=== PATIENT | female | born 1960 | race Caucasian/White ===

== ENCOUNTER 2019-12-11 12:45 | Outpatient (CLI) | payer OTHER, SELFPAY ==
--- NOTE | 2019-12-11 12:53 | CT_ITS ---
WS: [id number] CT HEAD NONCONTRAST HISTORY: WEAKNESS, RIGHT SIDE OF BODY TECHNIQUE: Contiguous axial imaging performed through the brain in 2.5 mm imaging. Bone and soft tiss ue windows. All CT scans at [facility] use at least one of these dose optimization techniq ues: automated exposure control; mA and/or kV adjustment per patient size (includes targeted exams wh ere dose is matched to clinical indication); or iterative reconstruction. DLP: 925.91 mGycm COMPARISON: None available. No acute intracranial hemorrhage, midline shift or mass effect. Mild atrophy and mild chronic microvascular ischemic disease. No space-occupying lesions are identifi ed. Ventricles: Normal size with no hydrocephalus. Paranasal sinuses: As visualized are clear. Mastoid air cells: Well pneumatized. Calvarium and scalp: Skull is intact with no soft tissue edema or swelling. CT/CT head wo con* [id number] IMPRESSION: 1. No acute intracranial hemorrhage or edema. 2. Mild atrophy and chronic ischemic disease. 3. If further evaluation is clinically thought necessary MRI with contrast wou ld be helpful.
== END 2019-12-11 12:46 | disposition home or self-care (01) ==
LOC: RADWPI 12:49
PROVIDERS: Family Provider Family Medicine; PCP Family Medicine; Visit Provider Family Medicine
DX: R53.1 Weakness (principal); G31.9 Degenerative disease of nervous system, unspecified; I25.9 Chronic ischemic heart disease, unspecified
CPT/HCPCS: 70450

== ENCOUNTER 2019-12-17 07:45 | Outpatient (CLI) | payer OTHER, SELFPAY ==
--- NOTE | 2019-12-17 | USCV_ITS ---
Shelly Schilling Age: 59 Gender: F : 1960 Exam Date: 12/17/2019 10:26 Ordering Phys: Brady Mckeon MD Technologist: Faith Thorne Exam Location: [facility] – [place] Indication: CVA RT SIDE BP: / HR: 66 Rhythm: Sinus Technical Quality: Adequate MEASUREMENTS (Male / Female) Normal Values 2D ECHO LV Diastolic Diameter PLAX 3.5 cm 4.2 - 5.9 / 3.9 - 5.3 cm LV Systolic Diameter PLAX 2.7 cm LV Chamber Size 3.0 cm IVS Diastolic Thickness 1.2 cm 0.6 - 1.0 / 0.6 - 0.9 cm IVS Systolic Thickness 1.6 cm LVPW Diastolic Thickness 1.3 cm 0.6 - 1.0 / 0.6 - 0.9 cm LVPW Systolic Thickness 1.2 cm RV Chamber Size 2.6 cm LVOT Diameter 2.0 cm LV Ejection Fraction 2D Teich 43.8 % LV Ejection Fraction MOD 2C 72.0 % LV Ejection Fraction 2C AL 70.8 % LA Diameter 4.6 cm LA Width 4.1 cm LA Height 5.0 cm RA Width 2.6 cm RA Height 3.3 cm Aorta at Sinotubular Diameter 2.2 cm M-MODE LV Diastolic Diameter MM 5.0 cm 4.2 - 5.9 / 3.9 - 5.3 cm LV Systolic Diameter MM 3.3 cm LV Ejection Fraction MM Teich 62.7 % IVS Diastolic Thickness MM 1.1 cm 0.6 - 1.0 / 0.6 - 0.9 cm IVS Systolic Thickness MM 1.2 cm LVPW Diastolic Thickness MM 1.0 cm 0.6 - 1.0 / 0.6 - 0.9 cm LVPW Systolic Thickness MM 1.9 cm RV Diastolic Diameter MM 1.1 cm Aortic Annulus Diameter 2.8 cm LA Ao Ratio MM 1.7 MV E Point Septal Separation 0.3 cm DOPPLER AV Peak Velocity 167.0 cm/s LVOT Peak Velocity 82.0 cm/s AV Area Cont Eq vti 1.9 cm squared AV Area Cont Eq pk 1.6 cm squared MV Area PHT 3.9 cm squared Mitral E to A Ratio 1.3 MV E' Velocity 7.0 cm/s Mitral E to MV E' Ratio 14.9 Mitral E to LV E' Lateral Ratio 16.2 Mitral E to LV E' Septal Ratio 13.9 TR Peak Velocity 235.2 cm/s TR Peak Gradient 22.1 mmHg TR Mean Velocity 153.9 cm/s TR Mean Gradient 11.6 mmHg TR Velocity Time Integral 59.0 cm TV Peak E Velocity 75.0 cm/s PV Peak Velocity 67.0 cm/s RV Acceleration Time 0.1 s RV Ejection Time 0.4 s RV AcT/ET 0.4 FINDINGS Left Ventricle Normal left ventricular cavity size. Normal left ventricular systolic function. No regional wall motion abnormalities. Left ventricular ejection fraction is estimated at 62 %. Grade II/IV diastolic dysfunction, moderately elevated filling pressures. Right Ventricle The right ventricle is normal in size and function. RVSP could not be calculated due to incomplete tricuspid regurgitation velocity profile. Right Atrium The right atrium is normal in size. Left Atrium Moderately increased left atrial size. Mitral Valve Severely thickened mitral valve. Severe mitral annular calcification. No mitral valve stenosis. Moderate mitral valve regurgitation. Aortic Valve Moderate aortic valve calcification. Mild aortic valve stenosis, mean gradient 5.8 mmHg, JAMES 1.9 cm squared. Trace regurgitation. Tricuspid Valve Structurally normal tricuspid valve without significant stenosis or regurgitation. Pulmonic Valve Structurally normal pulmonic valve without significant stenosis. There is no pulmonic regurgitation. Pericardium Normal pericardium without effusion. Aorta Normal ascending aorta dimension. CONCLUSIONS 1-Normal left ventricular cavity size. Normal left ventricular systolic function. No regional wall motion abnormalities. Left ventricular ejection fraction is estimated at 62 %. Grade II/IV diastolic dysfunction, moderately elevated filling pressures. 2-Moderate aortic valve calcification. Mild aortic valve stenosis, mean gradient 5.8 mmHg, JAMES 1.9 cm squared. Trace regurgitation. 3-Severely thickened mitral valve. Severe mitral annular calcification. No mitral valve stenosis. Moderate mitral valve regurgitation. 4-Moderately increased left atrial size. 5-The right ventricle is normal in size and function. RVSP could not be calculated due to incomplete tricuspid regurgitation velocity profile. 6-Right atrial pressure is around 5 mm of mercury. 7-When compared to the prior echocardiogram dated 02/22/2018 there appeared to be mild aortic stenosis and mild to moderate mitral valve regurgitation now. Halima Espino MD (Electronically Signed) Final Date: 17 Dec 2019 14:59 S
--- NOTE | 2019-12-17 | MR_ITS ---
WS: [id number] MRI BRAIN WITH AND WITHOUT CONTRAST HISTORY: CVA, WEAKNESS RT SIDE OF BODY COMPARISON: CT head 12/11/2019 TECHNIQUE: Multiplanar imaging performed through the brain with Prohance 17 ml's IV. Very tiny acute diffusion abnormality in the motor cortex of the LEFT frontoparietal region. Only a s latrice acute infarct is identified. There are additional scattered T2 and FLAIR signal hyperintensities in the subcortical white matter a nd in the periventricular white matter. Slightly greater number in the LEFT cerebrum. Ventricles and extra-axial spaces are normal. Clivus and pituitary gland are normal. Visualized posterior fossa and brainstem are also normal. On the postcontrast images there is a 3.5 mm area of nodular enhancement in the posterior LEFT fronta l cortex. This is not definitely the same area as the small lacunar infarct. There is some very vague enhancement within the acute lacunar infarct also. Dural venous sinuses are normal. Paranasal sinuses: Well aerated with no significant disease. Mastoid air cells: Minimal mastoid air cell disease. Calvarium and scalp: Normal. MR/MR head wo/w con [id number] IMPRESSION: 1. Tiny acute lacunar infarct in the LEFT frontoparietal region with minimal e nhancement. 2. Additional nodular, 3.5 mm area of enhancement in the posterior LEFT fronta l cortex. This also may be from a prior infarct. Due to the enhancement and no positive findings on the diffusion-weighted images recommend short-term follow- up. Follow-up MRI brain with contrast in 4-6 weeks. Differential includes subac el infarct, active demyelinating lesion or early neoplasm. Less likely vascula r malformation. 3. Mild chronic microvascular ischemic disease, greater in the LEFT hemisphere .
--- NOTE | 2019-12-17 | USCV_ITS ---
Shelly Schilling Age: 59 Gender: F : 1960 Exam Date: 12/17/2019 10:07 Ordering Phys: rBady Mckeon MD Technologist: Faith Thorne Exam Location: [facility] – [place] Indication: CVA RT SIDE Risk Factors: Unknown Previous Vascular Surgery: None Right Brachial BP: / Left Brachial BP: / Right Left Velocity (cm/s) Spectral Plaque Velocity (cm/s) Spectral Plaque Syst/Diast Broadening Syst/Diast Broadening 105.80/20.90 Prox CCA 83.30 / 14.60 93.70/ 24.30 Mid CCA 65.50 / 19.10 55.20/ 15.80 Distal CCA 60.60 / 19.10 Hetro 57.40/ 19.10 Prox ICA 69.70 / 25.70 Hetro 72.70/ 29.40 Mid ICA 84.60 / 39.00 89.70/ 30.60 Distal ICA 109.40/ 46.10 74.00 ECA 77.10 0.96 ICA/CCA 1.67 Antegrade Vertebral Antegrade 42.50/ 11.00 cm/s 50.40/ 15.40 cm/s Tri Subclavian Tri 74.10 144.5 0 FINDINGS Comparison:. /. No significant elevation of systolic or diastolic velocities. Waveforms are normal. No significant amount of calcified plaque or intimal thickening identified. CONCLUSIONS Normal carotid doppler ultrasound. No interval change in stenosis since prior exam. Dr. Maura Morales DO (Electronically Signed) Final Date: 17 Dec 2019 15:10 S
== END 2019-12-17 07:46 | disposition home or self-care (01) ==
PROVIDERS: Family Provider Family Medicine; PCP Family Medicine; Visit Provider Family Medicine
DX: I63.9 Cerebral infarction, unspecified (principal); R53.1 Weakness; I63.81 Other cerebral infarction due to occlusion or stenosis of small artery; I25.9 Chronic ischemic heart disease, unspecified
CPT/HCPCS: 70553; 93306; 93880; A9579

== ENCOUNTER 2020-01-02 09:47 | Outpatient (RCR) | payer OTHER, SELFPAY | END 2020-01-06 23:59 | disposition home or self-care (01) | LOC: SOT 09:47 | PROVIDERS: PCP Family Medicine; Referring Provider Family Medicine; Visit Provider Family Medicine | DX: Z86.73 Personal history of transient ischemic attack (TIA), and cerebral infarction without residual deficits (principal) | CPT/HCPCS: 97166 ==

== ENCOUNTER 2020-01-07 06:00 | Outpatient (RCR) | payer OTHER, SELFPAY | END 2020-02-05 23:59 | disposition home or self-care (01) | LOC: SOT 06:00 | PROVIDERS: PCP Family Medicine; Referring Provider Family Medicine; Visit Provider Family Medicine | DX: Z86.73 Personal history of transient ischemic attack (TIA), and cerebral infarction without residual deficits (principal) | CPT/HCPCS: 97110; 97112; 97140; 97530 ==

== ENCOUNTER 2020-01-07 06:00 | Outpatient (RCR) | payer OTHER, SELFPAY | END 2020-02-05 23:59 | disposition home or self-care (01) | LOC: SST 06:00 | PROVIDERS: PCP Family Medicine; Referring Provider Family Medicine; Visit Provider Family Medicine | DX: I63.9 Cerebral infarction, unspecified (principal); R41.841 Cognitive communication deficit | CPT/HCPCS: 96125; 97129; 97130 ==

== ENCOUNTER 2020-01-29 07:36 | Outpatient (CLI) | payer OTHER, SELFPAY ==
--- NOTE | 2020-01-29 07:39 | US_ITS ---
WS: [id number] Complete ABDOMINAL ULTRASOUND HISTORY: ELEVATED TRANSAMINASES SERUM COMPARISON: None available. Liver: 20.0 cm in length. Moderate enlargement the liver with coarsened echotexture and changes of he patic steatosis. Gallbladder: Normally distended with no gallstones, wall thickening or pericholecystic fluid. Gallbladder wall thickness: 0.2 cm. Pancreas: Normal size and echogenicity. CBD: 0.4 cm. Right kidney: 10.5 cm x 4.8 cm x 4.2 cm. No mass, cortical thickening or hydronephrosis. Left kidney: 12.2 cm x 5.6 cm x 4.2 cm. No mass, cortical thickening or hydronephrosis. Spleen: Normal size and echogenicity. Abdominal aorta and IVC are within normal limits. No ascites. US/US abdomen complete* [id number] IMPRESSION: 1. Moderate hepatomegaly and hepatic steatosis. 2. Negative gallbladder.
--- NOTE | 2020-01-29 08:36 | MR_ITS ---
WS: [id number] MRI BRAIN WITH AND WITHOUT CONTRAST HISTORY: CVA COMPARISON: 12/17/2019. CT head 12/11/2019 TECHNIQUE: Multiplanar imaging performed through the brain with Prohance 17 ml's IV. Previously described tiny acute lacunar infarct in the LEFT frontal parietal region is no longer pres ent. There are no diffusion-weighted abnormalities today. No evidence for prior hemorrhage. There is a moderate amount of chronic microvascular ischemic diseas e in the white matter. No large territory infarcts. Ventricles and extra-axial spaces are normal. Clivus and pituitary gland are normal. Visualized posterior fossa and brainstem are also normal. There are no enhancing masses. The previously described nodular areas of enhancement in the posterior LEFT frontal cortex are no longer present. Dural venous sinuses are normal. Paranasal sinuses: Well aerated with no significant disease. Mastoid air cells: Normal. Calvarium and scalp: Normal. MR/MR head wo/w con [id number] IMPRESSION: 1. No evidence for an acute infarct. No acute hemorrhage. 2. Interval resolution of the nodular areas of enhancement in the frontal juan ex. This focal nodular enhancement was probably related to a subacute infarct. 3. Moderate chronic microvascular ischemic changes without progression.
== END 2020-01-29 07:37 | disposition home or self-care (01) ==
LOC: US 07:36
PROVIDERS: PCP Family Medicine; Visit Provider Family Medicine
DX: I63.9 Cerebral infarction, unspecified (principal); R16.0 Hepatomegaly, not elsewhere classified; K76.0 Fatty (change of) liver, not elsewhere classified; I25.9 Chronic ischemic heart disease, unspecified
CPT/HCPCS: 70553; 76700; A9579

== ENCOUNTER 2020-02-06 06:00 | Outpatient (RCR) | payer OTHER, SELFPAY | END 2020-03-07 23:59 | disposition home or self-care (01) | LOC: SOT 06:00 | PROVIDERS: PCP Family Medicine; Referring Provider Family Medicine; Visit Provider Family Medicine | DX: Z86.73 Personal history of transient ischemic attack (TIA), and cerebral infarction without residual deficits (principal) | CPT/HCPCS: 97110 ==

== ENCOUNTER 2020-02-06 06:00 | Outpatient (RCR) | payer OTHER, SELFPAY | END 2020-03-07 23:59 | disposition home or self-care (01) | LOC: SST 06:00 | PROVIDERS: PCP Family Medicine; Referring Provider Family Medicine; Visit Provider Family Medicine | DX: I63.9 Cerebral infarction, unspecified (principal); R41.841 Cognitive communication deficit | CPT/HCPCS: 97129; 97130 ==

== ENCOUNTER 2020-05-05 06:00 | Outpatient (RCR) | payer OTHER, SELFPAY | END 2020-05-07 23:59 | disposition home or self-care (01) | LOC: SST 06:00 | PROVIDERS: PCP Family Medicine; Referring Provider Family Medicine; Visit Provider Family Medicine | DX: I69.311 Memory deficit following cerebral infarction (principal); I69.328 Other speech and language deficits following cerebral infarction | CPT/HCPCS: 96125 ==

== ENCOUNTER 2020-05-08 06:00 | Outpatient (RCR) | payer OTHER, SELFPAY | END 2020-06-07 23:59 | disposition home or self-care (01) | LOC: SST 06:00 | PROVIDERS: PCP Family Medicine; Referring Provider Family Medicine; Visit Provider Family Medicine | DX: I63.9 Cerebral infarction, unspecified (principal) | CPT/HCPCS: 97129; 97130 ==

== ENCOUNTER → 2020-05-09 11:44 | Outpatient (BNVA) | payer OTHER, SELFPAY | PROVIDERS: PCP Family Medicine; Visit Provider Specialist | DX: I63.9 Cerebral infarction, unspecified (principal); G47.10 Hypersomnia, unspecified; R41.3 Other amnesia; R00.2 Palpitations | CPT/HCPCS: 96116; 99205 ==

== ENCOUNTER 2020-05-30 09:00 | Outpatient (CLI) | payer OTHER, SELFPAY ==
--- NOTE | 2020-05-30 09:15 | MR_ITS ---
WS: [id number] MRA HEAD TECHNIQUE: Axial 3-D TOF images obtained with axial images and axial, sagittal, and coronal 2-D refor matted images. CLINICAL INFORMATION: I63.9 Cerebral infarction, unspecified COMPARISON: MRI head January 29, 2020 FINDINGS: Distal vertebral arteries are patent. Basilar artery is patent. Normal vascularity to the [employer] territo ry bilaterally. Both ICAs are patent at the skull base. Normal vascularity to the RON and MCA territories bilaterally . No evidence of high-grade proximal stenosis or aneurysm. Patent anterior communicating artery. MR/MR angio head wo con [id number] IMPRESSION: Normal intracranial MRa
== END 2020-05-30 09:01 | disposition home or self-care (01) ==
PROVIDERS: PCP Family Medicine; Visit Provider Specialist
DX: I63.9 Cerebral infarction, unspecified (principal)
CPT/HCPCS: 70544

== ENCOUNTER 2020-06-08 06:00 | Outpatient (RCR) | payer OTHER, SELFPAY | END 2020-07-07 23:59 | disposition home or self-care (01) | LOC: SST 06:00 | PROVIDERS: PCP Family Medicine; Referring Provider Family Medicine; Visit Provider Family Medicine | DX: I69.311 Memory deficit following cerebral infarction (principal) | CPT/HCPCS: 97129; 97130 ==

== ENCOUNTER 2020-06-16 20:00 | Outpatient (CLI) | payer OTHER, SELFPAY | END 2020-06-16 20:01 | disposition home or self-care (01) | LOC: SLEEP 06-17 09:29 | PROVIDERS: PCP Family Medicine; Visit Provider Specialist | DX: G47.10 Hypersomnia, unspecified (principal); G47.33 Obstructive sleep apnea (adult) (pediatric) | CPT/HCPCS: 95810 ==

== ENCOUNTER 2020-07-08 06:00 | Outpatient (RCR) | payer OTHER, SELFPAY | END 2020-08-07 23:59 | disposition home or self-care (01) | LOC: SST 06:00 | PROVIDERS: PCP Family Medicine; Referring Provider Family Medicine; Visit Provider Family Medicine | DX: R41.3 Other amnesia (principal); I69.30 Unspecified sequelae of cerebral infarction | CPT/HCPCS: 95816; 97129; 97130 ==

== ENCOUNTER → 2020-07-09 10:09 | Outpatient (BNVA) | payer OTHER, SELFPAY | PROVIDERS: PCP Family Medicine; Visit Provider Specialist | DX: Z01.89 Encounter for other specified special examinations (principal); R56.9 Unspecified convulsions; G31.84 Mild cognitive impairment of uncertain or unknown etiology; I69.30 Unspecified sequelae of cerebral infarction; I10 Essential (primary) hypertension; F17.210 Nicotine dependence, cigarettes, uncomplicated | CPT/HCPCS: 95816; 96116; 99214 ==

== ENCOUNTER → 2020-07-20 10:15 | Outpatient (BNVA) | payer OTHER, SELFPAY | PROVIDERS: PCP Family Medicine; Visit Provider Internal Medicine Cardiovascular Disease | DX: Z11.59 Encounter for screening for other viral diseases (principal); Z01.812 Encounter for preprocedural laboratory examination | CPT/HCPCS: 87635 ==

== ENCOUNTER 2020-07-24 11:03 | Day surgery (SDC) | payer OTHER, SELFPAY ==
--- NOTE | 2020-07-24 11:38 | USCV_ITS ---
Shelly Schilling Age: 59 Gender: F : 1960 Exam Date: 07/24/2020 11:52 Ordering Phys: Viri Mcneal MD ([email or web address]) Technologist: Faith Thorne Exam Location: [facility] – [place] Indication: AFIB BP: 145 / 93 HR: 80 Rhythm: Sinus Technical Quality: Good MEASUREMENTS (Male / Female) Normal Values DOPPLER MV Area PHT 4.2 cm squared Mitral E to A Ratio 1.0 MV E' Velocity 148.0 cm/s Medications Sedation by anesthesia colleagues. Please refer to anesthesia report for details. Complications Intubation easy. Attempts x1. Patient no periprocedural postprocedural complications. Proc. Components Multiple images were obtained transgastric and mid esophageal level. FINDINGS Left Ventricle Normal left ventricular size, systolic function and wall thickness, with no regional wall motion abnormalities. Left ventricular ejection fraction is estimated at 70 %. Normal diastolic filling pattern. Right Ventricle Normal right ventricular size and systolic function. Tricuspid valve regurgitant jet is inadequate for estimation of right ventricle systolic pressure. Right Atrium Normal right atrial size. Left Atrium Mildly increased left atrial size. LA Appendage Normal left atrial appendage. Normal flow velocities in the left atrial appendage. No thrombus visualized in the left atrial appendage. IA Septum Normal interatrial septum. No patent foramen ovale or atrial septal defect by color Doppler or agitated saline study (bubble study). Mitral Valve Moderate mitral annular calcification. Thickened mitral valve. No mitral valve stenosis. Trace-mild mitral valve regurgitation. Aortic Valve Structurally normal trileaflet aortic valve. No aortic valve stenosis. No aortic valve regurgitation. Tricuspid Valve Structurally normal tricuspid valve. No tricuspid valve stenosis. Trace to mild tricuspid valve regurgitation. Pulmonic Valve Structurally normal pulmonic valve. No pulmonary valve stenosis. Trace pulmonary valve regurgitation. Pericardium No pericardial effusion. Aorta Normal size aortic root and proximal ascending aorta. No evidence of aortic dilation aneurysm or dissection. CONCLUSIONS 1. Normal left ventricular size, systolic function and wall thickness, with no regional wall motion abnormalities. Left ventricular ejection fraction is estimated at 70 %. 2. Normal right ventricular size and systolic function. 3. Mildly increased left atrial size. 4. No left atrial or left atrial appendage thrombus. 5. No evidence of atrial septal defect or patent foramen ovale. 6. No prior similar studies to compare. Viri Mcneal MD (Electronically Signed) Final Date: 25 July 2020 16:36 S
[2020-07-24 11:47] VITALS: BP 145/93; PULSE 87; RESP 18; TEMP 36.7; O2SAT 97; BMI 38.7
--- NOTE | 2020-07-24 12:16 | P.HP_ITS ---
Same Day Surgery H&P Indication for Procedure/HPI DATE OF PROCEDURE: July 24, 2020 CHIEF COMPLAINT/INDICATIONFOR SURGICAL PROCEDURE: Recent CVA PREOP DIAGNOSIS: CVA PLANNED PROCEDRUE: Operation Date: 07/24/20 12:00 Proposed Procedures p ARNIE (Transesophageal Echocardiogram)(Not Applicable) - Viri Mcneal MD 59 yo woman with PMHx of smoking since the age of 13, hypertension recent CVA in 12/25 when her right arm started hurting and it dropped while playing music. She is intermittently having problems with speech varies. She is getting speech therapy and physical therapy to help with the weakness. 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 She went back to work she coworkers noticed a difference in her cognitive function. She was making mistakes but was not realizing what she was doing. She is here today for outpatient elective ARNIE given her recent stroke. No new complaints since her last office visit. Physical exam: Gen: NAD, laying comfortable in bed RS: CTAB/L, No wheezing, rales or rhonchi CVS: S1S2 normal, Grade 2/6 systolic murmur at apex, No gallop [employer]: AAOx3 Ext: No edema, cyanosis. Medications/Allergies* Home Medications Medication Instructions Recorded Confirmed Type aspirin 325 mg tablet 325 mg PO DAILY 03/03/20 07/23/20 History atorvastatin 10 mg tablet 40 mg PO DAILY 03/03/20 07/23/20 History loratadine 10 mg tablet 10 mg PO DAILY 03/03/20 07/23/20 History omeprazole 20 mg capsule,delayed 20 mg PO DAILY 03/03/20 07/23/20 History release lisinopril 5 mg tablet 10 mg PO DAILY tab 05/09/20 07/23/20 History Allergies/Adverse Reactions Allergy/AdvReac Type Severity Reaction Status Date / Time Sulfa (Sulfonamide Allergy HIVES Verified 07/09/20 10:16 Antibiotics) nitrofurantoin AdvReac SHORTNESS Verified 07/09/20 10:16 [From Macrobid] OF BREATH Pertinent History/Comorbid Conditions* Medical History (Updated 07/12/20 @ 11:22 by Brittani Robertson MD) History of diverticulitis History of DVT (deep vein thrombosis) History of hiatal hernia History of hysteroscopy History of TIA (transient ischemic attack) Hypertension Surgical History (Updated 05/29/20 @ 10:30 by Viri Mcneal MD) History of delivery Social History Smoking and tobacco status: current every day smoker Quit status (tobacco): considering quitting Alcohol intake: never Pertinent Exam Findings alert, oriented x 3, clear to auscultation bilaterally, regular rate & rhythm and procedure specific exam findings (ASA 2, Airway 2) Related Problem List Diagnoses (1) Cerebrovascular accident (CVA): (2) Hypertension: Qualifiers: Hypertension type: essential hypertension Qualified Code(s): I10 - Essential (primary) hypertension (3) Smoker: (4) Hyperlipidemia: Qualifiers: Hyperlipidemia type: mixed hyperlipidemia Qualified Code(s): E78.2 - Mixed hyperlipidemia Recommendations Surgery/Procedure today Coding Level of Care Code Acute General Operator for [facility] Fwd Diagnoses Cerebrovascular accident (CVA) I63.9 Hypertension I10 Hypertension type: essential hypertension Smoker F17.200 Hyperlipidemia E78.2 Hyperlipidemia type: mixed hyperlipidemia
[2020-07-24 13:20] VITALS: BP 129/68; PULSE 63; RESP 18; O2SAT 96
--- NOTE | 2020-07-24 13:28 | P.PCN_ITS ---
Procedure/Consent Time out: Time Out Performed: Yes Consent: Consent for Procedure: Consent obtained from patient, Risks & Benefits reviewed and Agrees to proceed with procedure Procedure Narrative: ARNIE Procedure note Indication: Acute stroke Sedation: Propofol by anesthesia The patient was brought down to the quality assurance/r&d lab technician (CPRU). Procedure was explained to the patient in detail and informed consent was obtained. Timeout was called. After achieving adequate sedation, the probe was inserted on first attempt. No blood on the probe post procedure. Prelim report: Normal left ventricle size and systolic function. No left atrial or left atrial appendage mass or thrombus visualized. No ASD or PFO identified. Full report to follow. Patient tolerated the procedure well and initial recovery in quality assurance/r&d lab technician and subsequently was discharged home. Acute Procedures Epistaxis Control: Time out performed: Yes
[2020-07-24 13:35] VITALS: BP 127/74; PULSE 66; RESP 18; O2SAT 97
[2020-07-24 13:37] VITALS: BP 125/67; PULSE 72; RESP 18; TEMP 36.7; O2SAT 98
[2020-07-24 13:50] VITALS: BP 151/78; PULSE 65; RESP 18; O2SAT 98
[2020-07-24 14:05] VITALS: BP 138/77; PULSE 64; RESP 18; O2SAT 99
== END 2020-07-24 14:19 | disposition home or self-care (01) ==
PROVIDERS: PCP Family Medicine; Visit Provider Internal Medicine Cardiovascular Disease
PROC: (CPT 93312; principal; 2020-07-24 12:00)
DX: I63.9 Cerebral infarction, unspecified (principal); I10 Essential (primary) hypertension; F17.210 Nicotine dependence, cigarettes, uncomplicated; E78.2 Mixed hyperlipidemia; Z79.82 Long term (current) use of aspirin; Z86.718 Personal history of other venous thrombosis and embolism; Z86.73 Personal history of transient ischemic attack (TIA), and cerebral infarction without residual deficits
CPT/HCPCS: 12345; 93312; 93320; 93325

== ENCOUNTER 2020-08-08 06:00 | Outpatient (RCR) | payer SELFPAY | END 2020-09-07 23:59 | disposition home or self-care (01) | LOC: SST 06:00 | PROVIDERS: PCP Family Medicine; Referring Provider Family Medicine; Visit Provider Family Medicine | DX: I63.9 Cerebral infarction, unspecified (principal); R41.841 Cognitive communication deficit; R41.3 Other amnesia | CPT/HCPCS: 97129; 97130 ==

== ENCOUNTER 2020-09-26 09:35 | Outpatient (RCR) | payer OTHER, SELFPAY | END 2020-10-05 23:59 | disposition home or self-care (01) | LOC: SST 09:35 | PROVIDERS: PCP Family Medicine; Referring Provider Family Medicine; Visit Provider Family Medicine | DX: I63.9 Cerebral infarction, unspecified (principal); R41.3 Other amnesia; R41.841 Cognitive communication deficit | CPT/HCPCS: 92507; 96125; 97129; 97130 ==

== ENCOUNTER → 2020-10-01 13:33 | Outpatient (BNVA) | payer OTHER, SELFPAY | PROVIDERS: PCP Family Medicine; Visit Provider Specialist | DX: I69.30 Unspecified sequelae of cerebral infarction (principal); G31.84 Mild cognitive impairment of uncertain or unknown etiology; R56.9 Unspecified convulsions; F32.9 Major depressive disorder, single episode, unspecified; F17.210 Nicotine dependence, cigarettes, uncomplicated | CPT/HCPCS: 99215; 99417; G2212 ==

== ENCOUNTER 2020-10-06 06:00 | Outpatient (RCR) | payer OTHER, SELFPAY | END 2020-11-05 23:59 | disposition home or self-care (01) | LOC: SST 06:00 | PROVIDERS: PCP Family Medicine; Referring Provider Family Medicine; Visit Provider Family Medicine | DX: R56.9 Unspecified convulsions (principal); R41.3 Other amnesia; R41.841 Cognitive communication deficit; Z86.73 Personal history of transient ischemic attack (TIA), and cerebral infarction without residual deficits; F17.210 Nicotine dependence, cigarettes, uncomplicated | CPT/HCPCS: 97129; 97130 ==

== ENCOUNTER 2020-11-06 06:00 | Outpatient (RCR) | payer SELFPAY | END 2020-12-05 23:59 | disposition home or self-care (01) | LOC: SST 06:00 | PROVIDERS: PCP Family Medicine; Referring Provider Family Medicine; Visit Provider Family Medicine | DX: I69.311 Memory deficit following cerebral infarction (principal) | CPT/HCPCS: 92507; 97129; 97130 ==

== ENCOUNTER 2020-12-06 06:00 | Outpatient (RCR) | payer OTHER, SELFPAY | END 2021-01-05 23:59 | disposition home or self-care (01) | LOC: SST 06:00 | PROVIDERS: PCP Family Medicine; Referring Provider Family Medicine; Visit Provider Family Medicine | DX: I69.328 Other speech and language deficits following cerebral infarction (principal); I69.311 Memory deficit following cerebral infarction | CPT/HCPCS: 92507; 97129; 97130 ==

== ENCOUNTER → 2020-12-11 09:19 | Outpatient (BNVA) | payer OTHER, SELFPAY | PROVIDERS: PCP Family Medicine; Visit Provider Specialist | DX: G31.84 Mild cognitive impairment of uncertain or unknown etiology (principal); I69.398 Other sequelae of cerebral infarction; F41.9 Anxiety disorder, unspecified; F32.9 Major depressive disorder, single episode, unspecified; F17.210 Nicotine dependence, cigarettes, uncomplicated | CPT/HCPCS: 99215 ==

== ENCOUNTER 2021-01-06 06:00 | Outpatient (RCR) | payer OTHER, SELFPAY | END 2021-02-04 23:59 | disposition home or self-care (01) | LOC: SST 06:00 | PROVIDERS: PCP Family Medicine; Referring Provider Family Medicine; Visit Provider Family Medicine | DX: I69.328 Other speech and language deficits following cerebral infarction (principal); I69.318 Other symptoms and signs involving cognitive functions following cerebral infarction | CPT/HCPCS: 97129; 97130 ==

== ENCOUNTER → 2021-03-10 13:04 | Outpatient (BNVA) | payer OTHER, SELFPAY | PROVIDERS: PCP Family Medicine; Visit Provider Specialist | DX: F32.9 Major depressive disorder, single episode, unspecified (principal); G31.84 Mild cognitive impairment of uncertain or unknown etiology; I69.398 Other sequelae of cerebral infarction; F17.200 Nicotine dependence, unspecified, uncomplicated | CPT/HCPCS: 99214 ==

== ENCOUNTER 2021-04-08 06:00 | Outpatient (RCR) | payer OTHER, SELFPAY | END 2021-05-07 23:59 | disposition home or self-care (01) | LOC: SST 06:00 | PROVIDERS: PCP Family Medicine; Referring Provider Family Medicine; Visit Provider Family Medicine | DX: I69.30 Unspecified sequelae of cerebral infarction (principal) | CPT/HCPCS: 92507; 96125; 97129; 97130 ==

== ENCOUNTER 2021-05-08 06:00 | Outpatient (RCR) | payer OTHER, SELFPAY | END 2021-06-07 23:59 | disposition home or self-care (01) | LOC: SST 06:00 | PROVIDERS: PCP Family Medicine; Referring Provider Family Medicine; Visit Provider Family Medicine | DX: I69.318 Other symptoms and signs involving cognitive functions following cerebral infarction (principal); I69.328 Other speech and language deficits following cerebral infarction | CPT/HCPCS: 92507; 97129; 97130 ==

== ENCOUNTER 2021-06-08 06:00 | Outpatient (RCR) | payer OTHER, SELFPAY | END 2021-07-07 23:59 | disposition home or self-care (01) | LOC: SST 06:00 | PROVIDERS: PCP Family Medicine; Referring Provider Family Medicine; Visit Provider Family Medicine | DX: I69.328 Other speech and language deficits following cerebral infarction (principal); I69.318 Other symptoms and signs involving cognitive functions following cerebral infarction | CPT/HCPCS: 92507 ==

== ENCOUNTER 2021-07-08 06:00 | Outpatient (RCR) | payer OTHER, SELFPAY | END 2021-08-07 23:59 | disposition home or self-care (01) | LOC: SST 06:00 | PROVIDERS: PCP Family Medicine; Referring Provider Family Medicine; Visit Provider Family Medicine | DX: I63.9 Cerebral infarction, unspecified (principal); R41.841 Cognitive communication deficit | CPT/HCPCS: 92507 ==

== ENCOUNTER 2021-08-08 06:00 | Outpatient (RCR) | payer OTHER, SELFPAY | END 2021-09-07 23:59 | disposition home or self-care (01) | LOC: SST 06:00 | PROVIDERS: PCP Family Medicine; Referring Provider Family Medicine; Visit Provider Family Medicine | DX: I69.319 Unspecified symptoms and signs involving cognitive functions following cerebral infarction (principal); I69.328 Other speech and language deficits following cerebral infarction | CPT/HCPCS: 92507 ==

== ENCOUNTER 2021-09-08 06:00 | Outpatient (RCR) | payer OTHER, SELFPAY | END 2021-10-05 23:59 | disposition home or self-care (01) | LOC: SST 06:00 | PROVIDERS: PCP Family Medicine; Referring Provider Family Medicine; Visit Provider Family Medicine | DX: I69.318 Other symptoms and signs involving cognitive functions following cerebral infarction (principal); I69.328 Other speech and language deficits following cerebral infarction | CPT/HCPCS: 92507 ==

== ENCOUNTER 2021-10-06 06:00 | Outpatient (RCR) | payer OTHER, SELFPAY | END 2021-11-05 23:59 | disposition home or self-care (01) | LOC: SST 06:00 | PROVIDERS: PCP Family Medicine; Referring Provider Family Medicine; Visit Provider Family Medicine | DX: I69.318 Other symptoms and signs involving cognitive functions following cerebral infarction (principal) | CPT/HCPCS: 92507 ==

== ENCOUNTER 2021-11-06 06:00 | Outpatient (RCR) | payer OTHER, SELFPAY | END 2021-12-05 23:59 | disposition home or self-care (01) | LOC: SST 06:00 | PROVIDERS: PCP Family Medicine; Referring Provider Family Medicine; Visit Provider Family Medicine | DX: I63.9 Cerebral infarction, unspecified (principal); R41.841 Cognitive communication deficit | CPT/HCPCS: 92507 ==

== ENCOUNTER 2021-12-06 06:00 | Outpatient (RCR) | payer OTHER, SELFPAY | END 2022-01-05 23:59 | disposition home or self-care (01) | LOC: SST 06:00 | PROVIDERS: PCP Family Medicine; Referring Provider Family Medicine; Visit Provider Family Medicine | DX: R41.841 Cognitive communication deficit (principal) | CPT/HCPCS: 92507 ==

== ENCOUNTER → 2021-12-18 10:43 | Outpatient (BNVA) | payer OTHER, SELFPAY | PROVIDERS: PCP Family Medicine; Visit Provider Family Medicine | DX: Z00.00 Encounter for general adult medical examination without abnormal findings (principal); Z13.220 Encounter for screening for lipoid disorders | CPT/HCPCS: 80053; 80061; 85025 ==

== ENCOUNTER 2021-12-26 13:54 | Inpatient (IN) | payer OTHER, SELFPAY ==
[2021-12-26] VITALS (8 sets, daily range): BP systolic 92–123; BP diastolic 56–72; PULSE 90–113; RESP 16–19; TEMP 36.4–36.7; O2SAT 94–99; BMI 38.6
[2021-12-26 15:08] LABS: Basophils # 0.4 10^3/uL (0.0-0.1); Basophils % 1.5 %; Eosinophils # 0.1 10^3/uL (0.0-0.8); Eosinophils % 0.3 %; Hematocrit 52.4 % (37.0-47.0); Hemoglobin 17.4 g/dL (11.5-15.3); Lymphocytes # 13.7 10^3/uL (0.8-4.8); Lymphocytes % 53.5 %; Mean Corpuscular HGB Conc 33.2 g/dL (30.0-36.0); Mean Corpuscular Hemoglobin 28.2 pg (28.0-34.0); Mean Corpuscular Volume 84.9 fl (81-99); Mean Platelet Volume 10.7 fL (7.4-10.4); Monocytes # 3.6 10^3/uL (0.2-0.9); Monocytes % 14.1 %; Neutrophils # 7.65 10^3/uL (1.8-7.7); Nucleated Red Blood Cells % 0 %; Platelet Count 469 10^3/cmm (130-400); Red Blood Count 6.17 10^6/uL (4.1-5.3); Red Cell Distribution Width 15.9 % (12.1-15.1); White Blood Count 25.6 10^3/uL (4.0-10.0)
--- NOTE | 2021-12-26 15:19 | W.ED.NAVMDI ---
HPI - Nausea/Vomiting/Diarrhea General: Chief complaint: Nausea/Vomiting/Diarrhea Stated complaint: N/V/D Time Seen by Provider: 12/26/21 14:39 Source: patient Mode of arrival: ambulatory Limitations: no limitations History of Present Illness: 61-year-old female who states that she has been having diarrhea along with some nausea and just feeling weak. She states that she has had general malaise for the last roughly 10 days much worse the last 5 days denies any fever denies any cough states that she did have C. difficile months ago she had finished an antibiotic roughly 3 weeks ago for a staph infection on her face. Patient is resting comfortably currently denies any dysuria denies any chest pain. Associated nausea: Yes Associated symtoms: Reports fatigue and nausea; Denies chest pain, dysuria or headache(s) Review of Systems Const: Reports: fatigue Eyes: Denies: blurry vision or eye discomfort ENMT: Denies: throat pain or dental pain Card: Denies: chest pain Resp: Denies: dyspnea GI: Reports: abdominal pain, nausea, vomiting and diarrhea : Denies: dysuria Musc: Denies: neck pain or back pain Skin/Breast: Denies: rash Neuro: Denies: headache(s) Psych: Denies: depression Willy/Lymph: Denies: easy bruising All/Imm: Denies: urticaria PFSH ED PFSH: Medical History Anxiety History of diverticulitis History of DVT (deep vein thrombosis) History of hiatal hernia History of TIA (transient ischemic attack) Hypertension 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) Psychiatric care Surgical History History of delivery History of hysteroscopy Social History Smoking and tobacco status: former smoker Quit status (tobacco): considering quitting Alcohol intake: never Physical Exam Const: COMMON NORMALS: no acute distress, patient oriented x3 and healthy appearing HENMT: COMMON NORMALS: normocephalic and atraumatic HEAD & SCALP: normocephalic and atraumatic Eye: COMMON NORMALS: Equal, round and reactive pupils present and EOMs intact bilaterally PUPIL: Yes Equal, round and reactive pupils present Neck/C-Spine: COMMON NORMALS: full ROM and supple Chest: COMMONS NORMALS: normal inspection of the chest and normal palpation of entire chest wall Resp: COMMON NORMALS: normal respiratory effort, No retractions, No use of accessory muscles and clear to auscultation bilaterally AUSCULTATION: clear to auscultation bilaterally Cardio: COMMON NORMALS: regular rhythm and No murmurs present (Cardio) RHYTHM: regular rhythm GI: COMMON NORMALS: Normal to inspection, nondistended, normoactive bowel sounds present, Soft to palpation, non-tender and no masses PALPATION: Yes Soft to palpation Extremity: COMMON NORMALS: normal to inspection and full ROM Neuro: COMMON NORMALS: patient oriented x3, moves all extremities and no focal motor deficits Psych: COMMON NORMALS: mental status grossly normal, Normal thought process present and cooperative THOUGHT PROCESS: Normal thought process present Skin: COMMON NORMALS: no rashes or lesions noted and no wounds GENERAL SKIN EXAM: no rashes or lesions noted Course Vital Signs: Vital signs: Vital Signs Temperature 97.5 F L 12/26/21 14:10 Pulse Rate 90 12/26/21 17:34 Respiratory Rate 16 12/26/21 17:34 Blood Pressure 96/56 12/26/21 17:55 Pulse Oximetry 95 12/26/21 17:55 MDM - Nausea/Vomiting/Diarrhea Medical Decision Making Patient presents here with diarrhea along with some generalized weakness she has had some mild hypotensive here that its improved with IV fluids is likely due to dehydration she does have a leukocytosis as well it could be due to her dehydration I did start her on IV antibiotics in case she has any infection CT scan here is normal she is not been able to give a stool sample I spoke to hospitalist Dr. Coffman who is admitting. Lab Data : 12/26/21 14:50 12/26/21 14:50 Radiology Impressions Chest X-Ray 12/26/21 15:30 IMPRESSION: No acute findings. Abdomen/Pelvis CT 12/26/21 16:04 IMPRESSION: 1. No acute findings. 2. Punctate cholelithiasis. Cholangiopancreatography MRI 12/26/21 17:22 IMPRESSION: 1. Negative for biliary obstruction. 2. Cholelithiasis without findings to suggest acute cholecystitis. Laboratory Results WBC 25.6 10^3/uL (4.0-10.0) H 12/26/21 14:50 RBC 6.17 10^6/uL (4.1-5.3) H 12/26/21 14:50 Hgb 17.4 g/dL (11.5-15.3) H 12/26/21 14:50 Hct 52.4 % (37.0-47.0) H 12/26/21 14:50 MCV 84.9 fl (81-99) 12/26/21 14:50 MCH 28.2 pg (28.0-34.0) 12/26/21 14:50 MCHC 33.2 g/dL (30.0-36.0) 12/26/21 14:50 RDW 15.9 % (12.1-15.1) H 12/26/21 14:50 Plt Count 469 10^3/cmm (130-400) H 12/26/21 14:50 MPV 10.7 fL (7.4-10.4) H 12/26/21 14:50 Neut % (Auto) 30.0 % 12/26/21 14:50 Lymph % (Auto) 53.5 % 12/26/21 14:50 [place] % (Auto) 14.1 % 12/26/21 14:50 Eos % (Auto) 0.3 % 12/26/21 14:50 Baso % (Auto) 1.5 % 12/26/21 14:50 Neut # (Auto) 7.65 10^3/uL (1.8-7.7) 12/26/21 14:50 Lymph # (Auto) 13.7 10^3/uL (0.8-4.8) H 12/26/21 14:50 [place] # (Auto) 3.6 10^3/uL (0.2-0.9) H 12/26/21 14:50 Eos # (Auto) 0.1 10^3/uL (0.0-0.8) 12/26/21 14:50 Baso # (Auto) 0.4 10^3/uL (0.0-0.1) H 12/26/21 14:50 Nucleated RBC % (auto) 0 % 12/26/21 14:50 Nucleated RBCs # 0.0 /100WBC 12/26/21 14:50 Sodium 133 mmol/L (136-145) L 12/26/21 14:50 Potassium 4.6 mmol/L (3.5-5.1) 12/26/21 14:50 Chloride 101 mmol/L (98-107) 12/26/21 14:50 Carbon Dioxide 20 mmol/L (22-29) L 12/26/21 14:50 Anion Gap 16.6 (5-19) 12/26/21 14:50 BUN 29 mg/dL (8-23) H 12/26/21 14:50 Creatinine 0.8 mg/dL (0.5-0.9) 12/26/21 14:50 GFR Calculation 72.9 mL/min (90-130) L 12/26/21 14:50 Glucose 115 mg/dL (65-115) 12/26/21 14:50 Calculated Osmolality 283 mOsm/kg (285-295) L 12/26/21 14:50 Lactate 1.9 mmol/L (0.5-2.2) 12/26/21 14:50 Calcium 8.0 mg/dL (8.5-10.5) L 12/26/21 14:50 Total Bilirubin 0.6 mg/dL (0.15-1.2) 12/26/21 14:50 AST 73 U/L (0-32) H 12/26/21 14:50 ALT 78 U/L (0-33) H 12/26/21 14:50 Alkaline Phosphatase 919 IU/L (35-105) H 12/26/21 14:50 Total Protein 6.1 g/dL (6.6-8.7) L 12/26/21 14:50 Albumin 2.7 g/dL (3.5-5.2) L 12/26/21 14:50 Globulin 3.4 g/dL (1.3-4.6) 12/26/21 14:50 Lipase 13 U/L (13-60) 12/26/21 14:50 Urine Color Dark yellow (Yellow) 12/26/21 14:50 Urine Appearance Sl hazy (CLEAR) 12/26/21 14:50 Urine pH 5 (5-7) 12/26/21 14:50 Ur Specific [place] 1.020 (1.005-1.030) 12/26/21 14:50 Urine Protein Neg (Negative) 12/26/21 14:50 Urine Glucose (UA) Norm (Normal) 12/26/21 14:50 Urine Ketones 1+ (Negative) H 12/26/21 14:50 Urine Blood Neg (Negative) 12/26/21 14:50 Urine Nitrate Negative (Negative) 12/26/21 14:50 Urine Bilirubin 1+ (Negative) H 12/26/21 14:50 Urine Urobilinogen 4 mg/dL (Negative) H 12/26/21 14:50 Ur Leukocyte Esterase 2+ (Negative) H 12/26/21 14:50 Urine RBC None /hpf (0-2) 12/26/21 14:50 Urine WBC 15-25 /hpf (0-5) H 12/26/21 14:50 Ur Squamous Epith Cells 5-10 /hpf (0-5) H 12/26/21 14:50 Amorphous Sediment Not Reportable 12/26/21 14:50 Urine Bacteria 2+ /hpf (NONE) H 12/26/21 14:50 Hyaline Casts 10-15 /lpf H 12/26/21 14:50 Coarse Granular Casts 0-4 /lpf H 12/26/21 14:50 Discharge Plan Discharge Patient Disposition: Admitted As Inpatient Clinical Impression: Diarrhea, Leukocytosis, Weakness Condition: Stable Coding Level of Care Code ED Instructional Technology Coordinator for Chg Fwd Exam Comprehensive
[2021-12-26 15:24] LABS: Alanine Aminotransferase 78 U/L (0-33); Albumin Level 2.7 g/dL (3.5-5.2); Alkaline Phosphatase 919 IU/L (35-105); Anion Gap 16.6 (5-19); Aspartate Amino Transferase 73 U/L (0-32); Blood Urea Nitrogen 29 mg/dL (8-23); Carbon Dioxide 20 mmol/L (22-29); Chloride 101 mmol/L (98-107); Globulin 3.4 g/dL (1.3-4.6); Glomerular Filtration Rate 72.9 mL/min (90-130); Glucose 115 mg/dL (65-115); Lipase 13 U/L (13-60); Osmolality Calculated 283 mOsm/kg (285-295); Potassium 4.6 mmol/L (3.5-5.1); Sodium 133 mmol/L (136-145); Total Bilirubin 0.6 mg/dL (0.15-1.2); Total Protein 6.1 g/dL (6.6-8.7)
[2021-12-26 15:25] LABS: Lactate (Lactic Acid level) 1.9 mmol/L (0.5-2.2); Slide Review Slide Review Perform
[2021-12-26] MEDS: sodium chloride 0.9% 1,000 ML 999 ML IV ×2 (15:30→17:33)
[2021-12-26] MEDS: diphenoxylate/atropine Tablet 1 TAB PO (15:30)
[2021-12-26] MEDS: ondansetron 2 mg/ML SDV 2 mL 4 MG IVP (15:30)
--- NOTE | 2021-12-26 15:30 | XRR_ITS ---
PROCEDURE INFORMATION: Exam: XR Chest Exam date and time: 12/26/2021 4:01 PM Age: 61 years old Clinical indication: Other: Abd pain TECHNIQUE: Imaging protocol: XR of the chest. Views: 1 view. COMPARISON: CR Chest 1 view [id number] 10/11/2018 1:31 PM FINDINGS: Lungs: Mild diffuse coarsening of the lung parenchyma. No consolidation. Pleural spaces: No pleural effusion. No pneumothorax. Heart/Mediastinum: No cardiomegaly. Bones/joints: Visualized osseous structures are intact. XR/XR chest 1V portable [id number] IMPRESSION: No acute findings.
[2021-12-26 15:41] LABS: Add Urine Microscopic? YES; Bilirubin Urine 1+ (Negative); Blood Urine Neg (Negative); Glucose Urine UA Norm (Normal); Ketones Urine 1+ (Negative); Leukocyte Esterase Urine 2+ (Negative); Nitrate Urine Negative (Negative); Protein Urine Neg (Negative); Urine Appearance SL Hazy (CLEAR); Urine Color Dark Yellow (Yellow); Urobilinogen Urine 4 mg/dL (Negative); pH Urine 5 (5-7)
[2021-12-26 15:42] LABS: Add Urine Culture? Yes; Bacteria Urine 2+ /hpf; Coarse Granular Casts Urine 0-4 /lpf; WBC Urine 15-25 /hpf (0-5)
--- NOTE | 2021-12-26 16:04 | CTR_ITS ---
PROCEDURE INFORMATION: Exam: CT Abdomen And Pelvis Without Contrast Exam date and time: 12/26/2021 4:15 PM Age: 61 years old Clinical indication: Abdominal pain; Periumbilical; Prior surgery; Surgery date: 6+ months; Surgery type: C-sect, colon; Patient HX: C/O mid abd pain w n/v/d; Additional info: Diarrhea/pain TECHNIQUE: Imaging protocol: Computed tomography of the abdomen and pelvis without contrast. Radiation optimization: All CT scans at this facility use at least one of these dose optimization techniques: automated exposure control; mA and/or kV adjustment per patient size (includes targeted exams where dose is matched to clinical indication); or iterative reconstruction. COMPARISON: CT abdomen pelvis w con* [id number] 09/30/2016 3:43 PM RADIATION DOSE METRICS: Total DLP (mGy-cm): 1677.06 FINDINGS: Liver: Scattered coarse calcifications, likely granulomas. Gallbladder and bile ducts: Punctate cholelithiasis. Contracted gallbladder. No ductal dilation. Pancreas: Normal. No ductal dilation. Spleen: Splenectomy. Adrenal glands: Normal. No mass. Kidneys and ureters: No renal stones. No hydronephrosis. Stomach and bowel: Colonic diverticulosis without findings of acute diverticulitis. No obstruction. No mucosal thickening. Appendix: No evidence of appendicitis. Intraperitoneal space: Unremarkable. No free air. No significant fluid collection. Vasculature: Unremarkable. No abdominal aortic aneurysm. Lymph nodes: Unremarkable. No enlarged lymph nodes. Urinary bladder: Unremarkable as visualized. Reproductive: Hysterectomy. Bones/joints: No acute fracture. Soft tissues: Unremarkable. CT/CT kidney stone [id number] IMPRESSION: 1. No acute findings. 2. Punctate cholelithiasis.
--- NOTE | 2021-12-26 17:22 | MRR_ITS ---
PROCEDURE INFORMATION: Exam: MR Abdomen Without Contrast Exam date and time: 12/26/2021 6:34 PM Age: 61 years old Clinical indication: Abdominal tenderness and nausea and vomiting and other: Diarrhea; Abdominal pain; Generalized; Prior surgery; Surgery date: 6+ months; Surgery type: 9 months ago spleen removed (it ruptured); Additional info: Acute ascending chlanitis TECHNIQUE: Imaging protocol: MR of the abdomen without contrast. COMPARISON: CT kidney stone [id number] 12/26/2021 4:15 PM FINDINGS: Liver: No mass. Gallbladder and bile ducts: Small stones at the gallbladder neck again noted. No gallbladder wall thickening or distention. No intrahepatic or extrahepatic biliary dilation. Pancreas: No ductal dilation. Spleen: Splenectomy. Adrenal glands: No mass. Kidneys and ureters: No solid mass. No hydronephrosis. Stomach and bowel: Visualized stomach and intestines are unremarkable. Intraperitoneal space: No free fluid. Arteries: No abdominal aortic aneurysm. Bones/joints: Unremarkable. Soft tissues: Unremarkable. MR/MR MRCP [id number] IMPRESSION: 1. Negative for biliary obstruction. 2. Cholelithiasis without findings to suggest acute cholecystitis.
[2021-12-26] MEDS: piperacillin-tazobactam 3.375 GM in sodium chloride 0.9% (plus) 50 ML IV (17:33)
--- NOTE | 2021-12-26 17:34 | PC.NURSE ---
Patient states that she is unable to give stool sample at this time.
--- NOTE | 2021-12-26 17:54 | PM.HP ---
Providers/Chief Complaint Primary Care Provider: Brady Mckeon MD Chief Complaint: N/V/D History of Present Illness Shelly Schilling is a 61 year old female with a past medical history of CVA with residual cognitive impairment working with speech therapy, history of hypertension, depression, liver cirrhosis, a year ago she had a history of traumatic splenic rupture requiring splenectomy, history of C. difficile, who presents to [facility] due to nausea, vomiting, diarrhea, abdominal pain. Patient tells me that for the last 2 weeks she has had persistent nausea, vomiting, diarrhea, nonspecific abdominal pain. She has not traveled anywhere. She drinks typically spring water. They do have well water at home. Denies any history of food poisoning. No history of hepatitis. Does have a history of liver cirrhosis, presumed [place], stopped drinking alcohol roughly a year ago. No history of IV drug abuse. No history of toxic exposures. 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 No history of tick bite. No cat or dog bites. Denies fevers, but does complain of night sweats.. No shortness of breath. No chest pain. No cough. Her abdominal pain, is in the epigastrium region, both in the right upper and left upper quadrant. Nonradiating. No flank pain. No dysuria. No hematuria. Review of Systems Const: Reports: chills; Denies: fever(s), body aches, fatigue or malaise Eyes: Denies: change in vision or blurry vision ENMT: Denies: throat pain or nasal congestion Card: Denies: chest pain, palpitations, edema, pre-syncope or dyspnea on exertion Resp: Denies: dyspnea, productive cough, non-productive cough or wheezing GI: Reports: abdominal pain, nausea, vomiting and diarrhea; Denies: hematemesis, constipation, hematochezia or melena : Denies: flank pain, dysuria or urinary frequency Musc: Denies: neck pain or back pain Skin/Breast: Denies: rash Neuro: Denies: headache(s), dizziness or vertigo Psych: Denies: anxiety or depression Endo: Denies: polyuria or polydipsia Willy/Lymph: Denies: enlarged lymph nodes Medications/Allergies Home Medications Medication Instructions Recorded Confirmed Last Taken Type aspirin 325 mg tablet 325 mg PO DAILY 03/03/20 12/15/21 Unknown History loratadine 10 mg tablet 10 mg PO DAILY 03/03/20 12/15/21 Unknown History omeprazole 20 mg capsule,delayed 20 mg PO DAILY 03/03/20 12/15/21 Unknown History release lisinopril 5 mg tablet 10 mg PO DAILY tab 05/09/20 12/15/21 Unknown History atorvastatin 10 mg tablet 20 mg PO DAILY tab 09/22/21 12/15/21 Unknown History bupropion HCl 75 mg tablet 75 mg PO QAM 30 Days #30 tab 09/22/21 12/15/21 Unknown Rx citalopram 40 mg tablet 40 mg PO DAILY 30 Days #30 tab 09/22/21 12/15/21 Unknown Rx Allergies Allergy/AdvReac Type Severity Reaction Status Date / Time Sulfa (Sulfonamide Allergy HIVES Verified 12/26/21 14:13 Antibiotics) nitrofurantoin AdvReac SHORTNESS Verified 12/26/21 14:13 [From Macrobid] OF BREATH PFSH Acute PFSH: Medical History Anxiety History of diverticulitis History of DVT (deep vein thrombosis) History of hiatal hernia History of TIA (transient ischemic attack) Hypertension 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) Psychiatric care Surgical History History of delivery History of hysteroscopy Social History Smoking and tobacco status: former smoker Quit status (tobacco): considering quitting Alcohol intake: never Vitals/I&O/Wt Last Vital Signs Temp 97.5 F L 12/26/21 14:10 Pulse 90 12/26/21 17:34 Resp 16 12/26/21 17:34 BP 115/64 12/26/21 17:34 Pulse Ox 95 12/26/21 17:34 Weight last 48 hrs Weight 100.698 kg Physical Exam Const: COMMON NORMALS: no acute distress and patient oriented x3 HENMT: COMMON NORMALS: normocephalic HEAD & SCALP: normocephalic Eye: COMMON NORMALS: Equal, round and reactive pupils present and EOMs intact bilaterally Neck/C-Spine: COMMON NORMALS: no JVD Lymph: LYMPHATIC: no lymphadenopathy noted Resp: COMMON NORMALS: normal respiratory effort, No retractions, No use of accessory muscles and clear to auscultation bilaterally AUSCULTATION: clear to auscultation bilaterally Cardio: COMMON NORMALS: no JVD, regular rate, regular rhythm, S1 normal heart sound present and S2 normal heart sound present RATE: regular rate RHYTHM: regular rhythm HEART SOUNDS: S1 normal heart sound present and S2 normal heart sound present GI: COMMON NORMALS: Normal to inspection, nondistended, normoactive bowel sounds present, Soft to palpation, non-tender, No hepatosplenomegaly present, no masses and no bruits PALPATION: Yes Soft to palpation and Yes No hepatosplenomegaly present Extremity: COMMON NORMALS: capillary refill normal, no clubbing, cyanosis or edema, no calf tenderness and no pedal edema Neuro: COMMON NORMALS: patient oriented x3, CN's II-XII intact bilaterally, moves all extremities and no focal motor deficits Psych: COMMON NORMALS: mental status grossly normal Data : 12/26/21 14:50 12/26/21 14:50 A&P Assessment and plan (1) Abdominal pain: Status: Acute (2) Transaminitis: Status: Acute (3) Leukocytosis: Status: Acute (4) Lymphocytosis: Status: Acute (5) Alkaline phosphatase elevation: Status: Acute (6) UTI (urinary tract infection): Status: Acute (7) Hypotension: Status: Acute Plan Abdominal pain -Etiology unclear -Does have leukocytosis, looks like it is lymphocyte predominant -Does have thrombocytosis, and lymphocytosis -Alk phos over 900, transaminitis AST 73, ALT 78, no significant bili elevation, lactate within normal limits, no significant mental status changes, no significant hyperbilirubinemia, lipase within normal limits, CT scan did not show any significant radiographic evidence of intra or extrahepatic biliary dilatation -Her abdominal pain is fairly nonspecific, on abdominal exam notes specific abdominal pain during palpation Plan -Clear liquid diet -Perform an MRCP to evaluate for ascending cholangitis or biliary tract obstruction -Stool studies, Entamoeba, Campylobacter, Giardia -EBV, CMV, acute hepatitis panel -Peripheral smear -MICHAELA, AMA -Continue IV fluids -Continue Zosyn -Full code -Lovenox for DVT prophylaxis Hypotension, likely secondary dehydration, diarrhea, IV fluids, blood pressures on presentation were 90s over 60, after fluid boluses her blood pressures are 110/70 during my examination, no lightheaded, dizziness, continue fluids UTI continue Zosyn Attestations Medical Necessity Statement*: Patient requires hospitalization for abdominal pain, nausea, vomiting, diarrhea, leukocytosis, leukocytosis, alk phos elevation, transaminitis, abdominal pain Coding Level of Care Code Acute Community Relations Representative for [facility] Fwd Diagnoses Abdominal pain R10.9 Transaminitis R74.01 Leukocytosis D72.829 Lymphocytosis D72.820 Alkaline phosphatase elevation R74.8 UTI (urinary tract infection) N39.0 Hypotension I95.9
--- NOTE | 2021-12-26 19:07 | PC.NURSE ---
patient currently in MRI. will begin medications upon arrival back to er.
[2021-12-26] MEDS: sodium chloride 0.9% 500 ML 999 ML IV (19:51)
[2021-12-26] MEDS: sodium chloride 0.9% 1,000 ML 100 ML IV (19:52)
[2021-12-26] MEDS: vancomycin 1,000 MG in sodium chloride 0.9% 250 ML 250 MG IV (19:52)
[2021-12-26] MEDS: enoxaparin 40 mg/0.4 mL Syringe SUBCUT (19:52)
[2021-12-26] MEDS: pantoprazole 40 mg SDV IVP (19:52)
[2021-12-26 20:09] LABS: Erythrocyte Sedimentation Rate 10 mm/hr (0-15)
[2021-12-26 20:11] LABS: LAB Peripheral Smear Sent for Review; Procalcitonin 0.21 ng/mL (0-0.5)
[2021-12-26 20:21] LABS: C Reactive Protein 14.9 mg/L (0.0-4.9); Creatine Phosphokinase 77 U/L (26-192); Gamma Glutamyl Transferase 553 U/L (5-36); Total Bilirubin 0.6 mg/dL (0.15-1.2)
[2021-12-26 20:53] LABS: HIV 1 & 2 Antibody Non-Reactive (Non-Reactiv); HIV 1 & 2 Antigen Non-Reactive (Non-Reactiv)
[2021-12-26 22:49] LABS: Hepatitis A Antibody IgM Non-Reactive (Nonreactive); Hepatitis B Core IgM Non-Reactive (Nonreactive); Hepatitis B Surface Antigen Non-Reactive (Nonreactive); Hepatitis C Virus Antibody Non-Reactive (Nonreactive)
[2021-12-27] VITALS (9 sets, daily range): BP systolic 93–119; BP diastolic 61–78; PULSE 81–112; RESP 16–18; TEMP 36.2–36.9; O2SAT 93–97
[2021-12-27] MEDS: piperacillin-tazobactam 3.375 GM in sodium chloride 0.9% (plus) 50 ML IV ×3 (01:14→17:03)
[2021-12-27 01:50] LABS: Monoscreen Negative (Negative)
[2021-12-27 01:50] LABS: Influenza A by IFA Negative (Negative); Influenza B by IFA Negative (Negative)
[2021-12-27 03:13] LABS: Adenovirus Not Detected (NOT DETECT); Chlamydia Pneumoniae Not Detected (NOT DETECT); Coronavirus 229E,HKU1,NL63,OC4 Not Detected (NOT DETECT); Human Metapneumovirus Not Detected (NOT DETECT); Human Rhinovirus/Enterovirus Not Detected (NOT DETECT); Influenza A Not Detected (NOT DETECT); Influenza A H1 Not Detected (NOT DETECT); Influenza A H1-2009 Not Detected (NOT DETECT); Influenza A H3 Not Detected (NOT DETECT); Influenza B Not Detected (NOT DETECT); Mycoplasma Pneumoniae Not Detected (NOT DETECT); Parainfluenza Virus Type 1 Not Detected (NOT DETECT); Parainfluenza Virus Type 2 Not Detected (NOT DETECT); Parainfluenza Virus Type 3 Not Detected (NOT DETECT); Parainfluenza Virus Type 4 Not Detected (NOT DETECT); Respiratory Syncytial Virus A Not Detected (NOT DETECT); Respiratory Syncytial Virus B Not Detected (NOT DETECT); SARS-COV-2 Not Detected (NOT DETECT)
[2021-12-27] MEDS: sodium chloride 0.9% 1,000 ML 100 ML IV (04:56)
[2021-12-27 05:00] LABS: Basophils # 0.6 10^3/uL (0.0-0.1); Eosinophils # 0.2 10^3/uL (0.0-0.8); Eosinophils % 0.6 %; Hematocrit 45.7 % (37.0-47.0); Hemoglobin 14.8 g/dL (11.5-15.3); Lymphocytes # 16.8 10^3/uL (0.8-4.8); Lymphocytes % 58.3 %; Mean Corpuscular HGB Conc 32.4 g/dL (30.0-36.0); Mean Corpuscular Volume 86.4 fl (81-99); Mean Platelet Volume 11.1 fL (7.4-10.4); Monocytes # 4.6 10^3/uL (0.2-0.9); Neutrophils # 6.48 10^3/uL (1.8-7.7); Neutrophils % 22.5 %; Nucleated Red Blood Cells % 0 %; Platelet Count 492 10^3/cmm (130-400); Red Blood Count 5.29 10^6/uL (4.1-5.3); Red Cell Distribution Width 15.4 % (12.1-15.1); White Blood Count 28.8 10^3/uL (4.0-10.0)
[2021-12-27 05:18] LABS: Lactate (Lactic Acid level) 1.2 mmol/L (0.5-2.2)
[2021-12-27 05:19] LABS: Alanine Aminotransferase 59 U/L (0-33); Albumin Level 2.2 g/dL (3.5-5.2); Alkaline Phosphatase 775 IU/L (35-105); Anion Gap 12.3 (5-19); Aspartate Amino Transferase 65 U/L (0-32); Blood Urea Nitrogen 21 mg/dL (8-23); C Reactive Protein 10.6 mg/L (0.0-4.9); Calcium 7.7 mg/dL (8.5-10.5); Carbon Dioxide 19 mmol/L (22-29); Chloride 107 mmol/L (98-107); Creatine Phosphokinase 44 U/L (26-192); Ferritin 400 ng/mL (15-150); Globulin 2.9 g/dL (1.3-4.6); Glomerular Filtration Rate 101.6 mL/min (90-130); Glucose 75 mg/dL (65-115); Magnesium 1.7 mg/dL (1.7-2.3); Osmolality Calculated 280 mOsm/kg (285-295); Phosphorus 3.4 mg/dL (2.5-4.5); Potassium 4.3 mmol/L (3.5-5.1); Sodium 134 mmol/L (136-145); Total Bilirubin 0.5 mg/dL (0.15-1.2); Total Protein 5.1 g/dL (6.6-8.7)
[2021-12-27 05:52] LABS: Slide Review Slide Review Perform
[2021-12-27] MEDS: atorvastatin 40 mg Tablet 20 MG PO (09:19)
[2021-12-27] MEDS: aspirin 325 mg Tablet PO (09:20)
[2021-12-27] MEDS: citalopram 20 mg Tablet 40 MG PO (09:20)
--- NOTE | 2021-12-27 10:31 | CTR_ITS ---
PROCEDURE INFORMATION: Exam: CT Chest Without Contrast; Diagnostic Exam date and time: 12/27/2021 1:03 PM Age: 61 years old Clinical indication: Other: Leukocyosis; Prior surgery; Surgery type: Spleen TECHNIQUE: Imaging protocol: Diagnostic computed tomography of the chest without contrast. Radiation optimization: All CT scans at this facility use at least one of these dose optimization techniques: automated exposure control; mA and/or kV adjustment per patient size (includes targeted exams where dose is matched to clinical indication); or iterative reconstruction. COMPARISON: CR (CHEST, ) 12/26/2021 4:01 PM RADIATION DOSE METRICS: Total DLP (mGy-cm): 987.57 FINDINGS: Lungs: Minor curvilinear atelectasis or scarring at the lung bases. No consolidation. No masses. Pleural spaces: No pneumothorax. No pleural effusion. Heart: Mitral valve calcifications. No coronary artery calcifications. No cardiomegaly. No pericardial effusion. Lymph nodes: Partially calcified mediastinal and hilar lymph nodes suggestive of prior granulomatous disease. No enlarged lymph nodes. Vasculature: No aortic aneurysm. Bones/joints: No acute fracture. Soft tissues: Unremarkable. CT/CT chest wo con [id number] IMPRESSION: No acute findings.
--- NOTE | 2021-12-27 12:43 | P.PN_ITS ---
Subjective Subjective: Patient was seen this morning, she is feeling better, no lightheadedness, dizziness, her diarrhea has resolved, no abdominal pain, no nausea, vomiting, she would like to try a more substantial meal, denies a history of leukemia, history of lymphomas, no bony pain Vitals/I&O/Wt Last Vital Signs Temp 98.1 F 12/27/21 10:59 Pulse 84 12/27/21 10:59 Resp 17 12/27/21 10:59 BP 95/61 12/27/21 10:59 Pulse Ox 97 12/27/21 10:59 12/26/21 12/27/21 12/27/21 22:59 06:59 14:59 Intake Total 2800 / 2800 1140 / 3940 180 / 180 Balance 2800 / 2800 1140 / 3940 180 / 180 Weight last 48 hrs Weight 108.635 kg Weight 100.698 kg Physical Exam Const: COMMON NORMALS: no acute distress and patient oriented x3 Resp: COMMON NORMALS: normal respiratory effort, No retractions, No use of accessory muscles and clear to auscultation bilaterally AUSCULTATION: clear to auscultation bilaterally Cardio: COMMON NORMALS: regular rate, regular rhythm, S1 normal heart sound pr esent and S2 normal heart sound present RATE: regular rate RHYTHM: regular rhythm HEART SOUNDS: S1 normal heart sound present and S2 normal heart sound present GI: COMMON NORMALS: Normal to inspection, nondistended, normoactive bowel sounds present, Soft to palpation and non-tender PALPATION: Yes Soft to palpation Extremity: COMMON NORMALS: no pedal edema Neuro: COMMON NORMALS: patient oriented x3 Psych: COMMON NORMALS: mental status grossly normal Data : 12/27/21 04:24 12/27/21 04:24 Micro: Microbiology 12/26/21 19:50 Blood Culture - Preliminary Blood SPECIMEN COLLECTED 12/26/21 19:50 Blood Culture - Preliminary Blood SPECIMEN COLLECTED A&P Assessment and plan (1) Abdominal pain: Status: Acute (2) Transaminitis: Status: Acute (3) Leukocytosis: Status: Acute (4) Lymphocytosis: Status: Acute (5) Alkaline phosphatase elevation: Status: Acute (6) UTI (urinary tract infection): Status: Acute (7) Hypotension: Status: Acute Plan Abdominal pain, with leukocytosis, with alk phos elevation -Etiology unclear -Does have leukocytosis, up to 20.8 looks like it is lymphocyte predominant -Does have thrombocytosis, and lymphocytosis -Alk phos over 900, transaminitis AST 73, ALT 78, elevated GGT no significant bili elevation, lactate within normal limits, no significant mental status changes, no significant hyperbilirubinemia, lipase within normal limits, CT scan did not show any significant radiographic evidence of intra or extrahepatic biliary dilatation -Her abdominal pain is fairly nonspecific, on abdominal exam notes specific abdominal pain during palpation Plan -Advance to regular diet -MRCP no evidence of biliary obstruction -HIV, acute hep negative -Stool studies, Entamoeba, Campylobacter, Giardia -EBV, CMV -Peripheral smear, leukemia, lymphoma panel -MICHAELA, AMA -Can stop IV fluids -Continue Zosyn -Will order CT of the chest -Will order bone scan given elevated lymphocyte, elevated alk phos, with no significant GI source -Patient needs to follow-up with hematology oncology as outpatient -Full code -Lovenox for DVT prophylaxis Hypotension, remains on the lower end, no symptoms likely secondary dehydration, diarrhea, IV fluids, blood pressures on presentation were 90s over 60, after fluid boluses her blood pressures are 110/70 during my examination, no lightheaded, dizziness, continue fluids UTI continue Zosyn Attestations Medical Necessity Statement*: Patient requires hospitalization for nausea, vomiting, persistent leukocytosis, Coding Level of Care Code Acute Rug Cleaner Hand for Chg Fwd Diagnoses Abdominal pain R10.9 Transaminitis R74.01 Leukocytosis D72.829 Lymphocytosis D72.820 Alkaline phosphatase elevation R74.8 UTI (urinary tract infection) N39.0 Hypotension I95.9
[2021-12-27 13:41] LABS: LAB Peripheral Smear Sent for Review
[2021-12-27 16:47] LABS: Basophils # 0.4 10^3/uL (0.0-0.1); Basophils % 1.6 %; Eosinophils # 0.1 10^3/uL (0.0-0.8); Eosinophils % 0.5 %; Hematocrit 47.3 % (37.0-47.0); Hemoglobin 15.2 g/dL (11.5-15.3); Lymphocytes # 14.2 10^3/uL (0.8-4.8); Lymphocytes % 54.5 %; Mean Corpuscular HGB Conc 32.1 g/dL (30.0-36.0); Mean Corpuscular Hemoglobin 28.1 pg (28.0-34.0); Mean Corpuscular Volume 87.6 fl (81-99); Mean Platelet Volume 10.5 fL (7.4-10.4); Monocytes # 4.1 10^3/uL (0.2-0.9); Monocytes % 15.7 %; Neutrophils # 7.09 10^3/uL (1.8-7.7); Nucleated Red Blood Cells % 0 %; Platelet Count 468 10^3/cmm (130-400); Red Cell Distribution Width 15.6 % (12.1-15.1); White Blood Count 26.2 10^3/uL (4.0-10.0)
[2021-12-27] MEDS: enoxaparin 40 mg/0.4 mL Syringe SUBCUT (17:03)
[2021-12-27 17:14] LABS: Slide Review Slide Review Perform
[2021-12-27] MEDS: pantoprazole 40 mg SDV IVP (17:51)
[2021-12-27] MEDS: ondansetron 2 mg/ML SDV 2 mL 4 MG IVP (19:05)
[2021-12-28] VITALS (9 sets, daily range): BP systolic 94–127; BP diastolic 59–72; PULSE 87–105; RESP 16–18; TEMP 36.6–37.7; O2SAT 93–95
[2021-12-28] MEDS: piperacillin-tazobactam 3.375 GM in sodium chloride 0.9% (plus) 50 ML IV ×3 (02:05→20:25)
--- NOTE | 2021-12-28 03:35 | PC.PHAR ---
Pharmacokinetic dosing service Date: Time: 329 Objective: Patient: Shelly Schilling Floor: 250-2 Age: 61 yo Serum creatinine: 0.6 mg/dL Height: 66.0 Inches Weight (kg): 108.635 Diagnosis: Relevant medical/social history: Cultures and sensitivities: Other labs: Assessment: IBW (kg): 59.30 Dosing wt(kg): 108.635 Estimated Creatinine clearance (ml/min): 92.2 CRCL method: Cockcroft and Gault using ibw(default). Drug selected: Vancomycin Loading dose (mg): 0 Vd (liters): 97.8 (factor used: 0.9 L/kg) Bryan (hr-1): 0.081 Half life (hrs): 8.56 Recommended dose: 1500 mg Interval: 12 hrs Infusion time (hrs): 1.5 Predicted peak (mcg/mL): 23.2 Predicted trough (mcg/mL): 9.91 Total body weight is being used for vancomycin dosing. Renal function is stable [ ] /unstable [ ] Recommendations: Give Vancomycin 1500 mg q 12 hrs with an expected Cpeak of 23.2 mcg/ml and an expected Ctrough of 9.91 mcg/ml Renal dosing of other antibiotics (review renal dosing of other medications and list guidelines here): Thank you for the consult, will continue to follow. Signature: Sloane Varela [facility]
--- NOTE | 2021-12-28 04:29 | NUR.SHIFT ---
Patient has rested in bed throughout the night, with stable vital signs. Up ad kwame in room without distress. Alert and oriented. Did have nausea without emesis at the start of shift, prn medication effective for patient. No complaints of pain made. Blood cultures did come back positive with new order for IV vancomycin received from Dr. Angeles.
[2021-12-28 04:49] LABS: Bacillus cereus group Not Detected (NOT DETECT); Bacillus subtillis group Not Detected (NOT DETECT); Corynebacterium Not Detected (NOT DETECT); Cutibacterium acnes (P.acnes) Not Detected (NOT DETECT); Enterococcus Not Detected (NOT DETECT); Enterococcus faecalis Not Detected (NOT DETECT); Enterococcus faecium Not Detected (NOT DETECT); Lactobacillus species Not Detected (NOT DETECT); Listeria Not Detected (NOT DETECT); Listeria monocytogenes Not Detected (NOT DETECT); Micrococcus Not Detected (NOT DETECT); Pan Candida Not Detected (NOT DETECT); Pan Gram-Negative Not Detected (NOT DETECT); Staphylococcus epidermidis Detected (NOT DETECT); Staphylococcus lugdunensis Not Detected (NOT DETECT); Staphylococcus species Detected (NOT DETECT); Streptococcus agalactiae Not Detected (NOT DETECT); Streptococcus anginosus group Not Detected (NOT DETECT); Streptococcus pneumoniae Not Detected (NOT DETECT); Streptococcus pyogenes Not Detected (NOT DETECT); Streptococcus species Not Detected (NOT DETECT); mecA Detected (NOT DETECT); mecC Not Detected (NOT DETECT)
[2021-12-28 04:54] LABS: Basophils # 0.8 10^3/uL (0.0-0.1); Basophils % 2.2 %; Eosinophils # 0.2 10^3/uL (0.0-0.8); Eosinophils % 0.4 %; Hematocrit 46.5 % (37.0-47.0); Hemoglobin 15.2 g/dL (11.5-15.3); Lymphocytes # 24.8 10^3/uL (0.8-4.8); Lymphocytes % 65.5 %; Mean Corpuscular HGB Conc 32.7 g/dL (30.0-36.0); Mean Corpuscular Hemoglobin 28.1 pg (28.0-34.0); Mean Platelet Volume 10.5 fL (7.4-10.4); Monocytes # 6.3 10^3/uL (0.2-0.9); Monocytes % 16.6 %; Neutrophils # 5.64 10^3/uL (1.8-7.7); Neutrophils % 14.9 %; Nucleated Red Blood Cells % 0 %; Platelet Count 438 10^3/cmm (130-400); Red Blood Count 5.41 10^6/uL (4.1-5.3); Red Cell Distribution Width 15.5 % (12.1-15.1)
[2021-12-28 05:09] LABS: Alanine Aminotransferase 79 U/L (0-33); Anion Gap 11.9 (5-19); Aspartate Amino Transferase 93 U/L (0-32); Blood Urea Nitrogen 15 mg/dL (8-23); Calcium 7.6 mg/dL (8.5-10.5); Carbon Dioxide 18 mmol/L (22-29); Chloride 109 mmol/L (98-107); Globulin 3.2 g/dL (1.3-4.6); Glomerular Filtration Rate 125.4 mL/min (90-130); Glucose 77 mg/dL (65-115); Magnesium 1.7 mg/dL (1.7-2.3); Osmolality Calculated 280 mOsm/kg (285-295); Phosphorus 2.4 mg/dL (2.5-4.5); Potassium 3.9 mmol/L (3.5-5.1); Sodium 135 mmol/L (136-145); Total Bilirubin 0.6 mg/dL (0.15-1.2); Total Protein 5.2 g/dL (6.6-8.7)
[2021-12-28 05:23] LABS: Alkaline Phosphatase 1054 IU/L (35-105)
[2021-12-28 05:41] LABS: Slide Review Slide Review Perform; White Blood Count 37.9 10^3/uL (4.0-10.0)
[2021-12-28] MEDS: ondansetron 2 mg/ML SDV 2 mL 4 MG IVP (06:40)
[2021-12-28] MEDS: atorvastatin 40 mg Tablet 20 MG PO (08:14)
[2021-12-28] MEDS: citalopram 20 mg Tablet 40 MG PO (08:14)
[2021-12-28] MEDS: aspirin 325 mg Tablet PO (08:14)
--- NOTE | 2021-12-28 11:14 | NM_ITS ---
WS: [id number] NUCLEAR MEDICINE BONE SCAN Radiopharmaceutical: 26.3 Tc-99m MDP mCi IV Postinjection imaging delay: 1 hr CLINICAL INFORMATION: elevated alkphos, with leukocytosis COMPARISON: None. FINDINGS: Bone lesions: There are no osseous lesions suspicious for metastatic disease. Soft tissue contours: Normal. Kidneys: Normal. Other findings: Degenerative type uptake in both shoulders, AC joints. Degenerative uptake in the ameena rnoclavicular joints and both knees. NM/NM bone scan whole body* [id number] IMPRESSION: No evidence of osseous metastatic disease.
[2021-12-28 11:48] LABS: COMPLEMENT COMPONENT C3C 121 mg/dL (83-193); COMPLEMENT COMPONENT C4C 41 mg/dL (15-57)
[2021-12-28 12:03] LABS: COMPLEMENT, TOTAL (CH50) >60 U/mL (31-60)
[2021-12-28 14:03] LABS: EBV IGM TEST <36.00 U/mL; EBV Viral Capsid AB IGM <36.00 U/mL
--- NOTE | 2021-12-28 14:47 | PM.PN ---
Subjective Subjective: She is having some mild nausea. Abdomen is not painful at rest, but tender on palpation. She had multiple episodes of nausea and vomiting previously. Not vomiting currently. Vitals/I&O/Wt Last Vital Signs Temp 98.1 F 12/28/21 11:50 Pulse 93 12/28/21 11:50 Resp 16 12/28/21 11:50 BP 94/59 12/28/21 11:50 Pulse Ox 93 12/28/21 11:50 12/27/21 12/28/21 12/28/21 22:59 06:59 14:59 Intake Total 530 / 1393.333 300 / 1693.333 410 / 410 Output Total 300 / 300 Balance 230 / 1093.333 300 / 1393.333 410 / 410 Weight last 48 hrs Weight 108.635 kg Physical Exam Const: COMMON NORMALS: alert GENERAL APPEARANCE: cooperative NUTRITIONAL APPEARANCE: obese ORIENTATION/CONSCIOUSNESS: Yes awake OTHER: Pleasant, conversant. HENMT: COMMON NORMALS: normocephalic, EAC's normal, Normal external nose present and moist oral mucous membranes HEAD & SCALP: normocephalic NOSE: Normal external nose present EXTERNAL AUDITORY CANAL: EAC's normal Neck/C-Spine: COMMON NORMALS: no meningeal signs Chest: CHEST: Yes Symmetrical chest wall rise Resp: COMMON NORMALS: clear to auscultation bilaterally AUSCULTATION: clear to auscultation bilaterally Cardio: COMMON NORMALS: regular rate, regular rhythm and No murmurs present (Cardio) RATE: regular rate RHYTHM: regular rhythm GI: COMMON NORMALS: Normal to inspection, nondistended, normoactive bowel sounds present and Soft to palpation PALPATION: Yes Soft to palpation and Yes Tenderness to palpation present (GI) (multiple locations BL) OTHER: Not particularly tender RUQ Extremity: COMMON NORMALS: no pedal edema Neuro: COMMON NORMALS: moves all extremities SENSORIUM/ORIENTATION: Yes alert MENINGEAL SIGNS: Yes no meningeal signs Psych: COMMON NORMALS: mental status grossly normal Skin: COMMON NORMALS: no wounds RASHES: no rashes Data : 12/28/21 04:41 12/28/21 04:41 Micro: Microbiology 12/27/21 13:52 Stool Lactoferrin - Final Stool Enteric Pathogens (PCR) - Final Parasite Antigen Panel - Final C.difficile Toxin B Gene (PCR) - Final Occult Blood (FIT) - Final 12/26/21 14:50 Urine Culture - Final Urine,Clean Catch 12/26/21 19:50 Blood Culture - Preliminary Blood Staphylococcus epidermidis 12/26/21 19:50 Blood Culture - Preliminary Blood Staphylococcus epidermidis A&P Assessment and plan (1) Alkaline phosphatase elevation: Discussed with her report elevation across today up to 1054. T bili is normal. No elevation of AST, ALT. Prior elevation of GGT. CT abdomen pelvis with small stones. Similarly MRCP with small stones, possible stone in neck of the gallbladder. He has some abdominal discomfort on multiple occasions, difficult to tell if abdominal wall following vomiting, but RUQ not particularly tender. However, still with alk phos ovation, GGT elevation, AST and ALT abnormality still raising concern for gallbladder infection. Discussed consideration of additional assessment by HIDA scan, although as discussed after bone scan may need to be delayed. As per discussion with nuc med, need to wait 48 hours, so will be withheld at this on Tuesday afternoon. For now we will additionally assess with RUQ US. MICHAELA has been ordered, as well as AMA. Requesting also ASMA. Discussed also with hematology, with leukocytosis, possibility of hematologic malignancy, suspicion for sarcoma is less. Peripheral smear to be reviewed by hematology. Discussed with her in heme-onc bone scan unremarkable. Status: Acute (2) Lymphocytosis: Status: Acute (3) Abdominal pain: Only tender on palpation. No abdominal pain at rest. Mild nausea. Vomiting is resolved. Diarrhea that she had had is improving as well is improving/resolving. Negative as well as bacterial and parasite panel. Positive lactoferrin, occult blood. Status: Acute (4) Transaminitis: Mild. There as above. Status: Acute (5) Leukocytosis: Worsening Leukocytosis, up to 37,000. Empirically on Zosyn, broadened with vancomycin overnight. Continue for now. Status: Acute (6) UTI (urinary tract infection): 10-20,000 mixed superficial chalino in urine after 2 days. Probable contaminants. Status: Acute (7) Hypotension: Status: Acute (8) Blood culture positive for microorganism: 2/4 bottles staph epidermidis. Suspected contamination. We will repeat blood culture given her condition. No masses noted in the liver on MRI. Status: Acute Plan Hypotension, remains on the lower end, no symptoms likely secondary dehydration, diarrhea. Diarrhea resolving. Hypomagnesemia: 1.7. Replace. Attestations Medical Necessity Statement*: Continue admission for assessment of management of so far unexplained alk phos elevation, leukocytosis. Coding Level of Care Code Acute Dietitian Teaching for Chg Fwd Diagnoses Abdominal pain R10.9 Transaminitis R74.01 Leukocytosis D72.829 Lymphocytosis D72.820 Alkaline phosphatase elevation R74.8 UTI (urinary tract infection) N39.0 Hypotension I95.9 Blood culture positive for microorganism R79.89
[2021-12-28 15:58] LABS: THYROID PEROXIDASE ANTIBODIES 1 IU/mL (<9)
[2021-12-28 16:27] LABS: CENTROMERE B ANTIBODY <1.0 NEG AI (<1.0 NEG); JO-1 ANTIBODY <1.0 NEG AI (<1.0 NEG); RNP ANTIBODY 1.1 POS AI (<1.0 NEG); SCL-70 ANTIBODY <1.0 NEG AI (<1.0 NEG); SJOGREN'S ANTIBODY (SS-A) <1.0 NEG AI (<1.0 NEG); SM ANTIBODY <1.0 NEG AI (<1.0 NEG); SS-B <1.0 NEG AI (<1.0 NEG)
[2021-12-28] MEDS: enoxaparin 40 mg/0.4 mL Syringe SUBCUT (16:34)
[2021-12-28] MEDS: pantoprazole 40 mg SDV IVP (16:34)
[2021-12-28 16:38] LABS: Cytomegalovirus Antibody (IGM) >240.00 AU/mL
[2021-12-29 03:40] VITALS: BP 106/72; PULSE 98; RESP 18; TEMP 36.9; O2SAT 94
[2021-12-29] MEDS: piperacillin-tazobactam 3.375 GM in sodium chloride 0.9% (plus) 50 ML IV ×2 (04:55→12:34)
[2021-12-29 05:28] LABS: Hematocrit 47.1 % (37.0-47.0); Mean Corpuscular HGB Conc 31.8 g/dL (30.0-36.0); Mean Corpuscular Hemoglobin 27.4 pg (28.0-34.0); Mean Corpuscular Volume 85.9 fl (81-99); Mean Platelet Volume 11.1 fL (7.4-10.4); Platelet Count 439 10^3/cmm (130-400); Red Blood Count 5.48 10^6/uL (4.1-5.3); Red Cell Distribution Width 15.9 % (12.1-15.1)
[2021-12-29 05:56] LABS: Alanine Aminotransferase 85 U/L (0-33); Albumin Level 1.9 g/dL (3.5-5.2); Alkaline Phosphatase 984 IU/L (35-105); Aspartate Amino Transferase 96 U/L (0-32); Blood Urea Nitrogen 10 mg/dL (8-23); Calcium 7.9 mg/dL (8.5-10.5); Carbon Dioxide 18 mmol/L (22-29); Chloride 109 mmol/L (98-107); Globulin 2.8 g/dL (1.3-4.6); Glomerular Filtration Rate 125.4 mL/min (90-130); Glucose 65 mg/dL (65-115); Osmolality Calculated 277 mOsm/kg (285-295); Phosphorus 2.4 mg/dL (2.5-4.5); Sodium 135 mmol/L (136-145); Total Bilirubin 0.6 mg/dL (0.15-1.2); Total Protein 4.7 g/dL (6.6-8.7)
[2021-12-29 05:58] LABS: Anion Gap 12.8 (5-19); Potassium 4.8 mmol/L (3.5-5.1)
[2021-12-29 06:00] VITALS: PULSE 98
--- NOTE | 2021-12-29 06:00 | US_ITS ---
WS: [id number] RIGHT UPPER QUADRANT ULTRASOUND HISTORY: hepatobiliary, severe AP elev, GGT elev COMPARISON: 01/29/2020 Examination is significantly compromised by patient's body habitus. Liver: 17.4 cm in length. Moderately enlarged liver with coarse echotexture. Poor penetration of the liver. There is a very irregular coarse echotexture throughout the liver. Infiltrating neoplasm would be difficult to exclude on this examination. No bile duct dilatation. Portal Vein: Normal hepatopetal flow with monophasic waveform. Gallbladder: Normally distended with calcifications. No pericholecystic fluid. CBD: 0.4 cm Pancreas: Not visualized. Right kidney: 11.1 cm in length. Normal size and echogenicity. No hydronephrosis or mass. Aorta and IVC: Unremarkable abdominal aorta and IVC. No ascites. US/US abdomen limited [id number] IMPRESSION: 1. Technically limited evaluation of the RIGHT upper quadrant due to patient's body habitus. 2. Cholelithiasis without acute cholecystitis. 3. Abnormal liver. Liver is enlarged and very heterogeneous. Although no discr ete mass is identified and infiltrating neoplasm cannot be excluded on this katie earance. Consider follow-up abdomen/pelvic CT with IV and oral contrast.
[2021-12-29 07:53] LABS: Total Cells Counted 100 (0-100)
[2021-12-29 07:54] LABS: Absolute Segmented Neutrophil 4.8 10/cmm (1.6-7.1); Band Neutrophils Absolute 1.2 10^3/cmm (0.0-1.2); Eosinophils 0 %; Hypochromasia 1+; Lymphocytes 65 %; Lymphocytes Absolute 33.2 10^3/cmm (1.2-3.4); Monocytes Absolute 0.8 10^3/cmm (0.1-0.6); Platelet Estimate Normal (Normal); Segmented Neutrophils 12 %
[2021-12-29 08:00] VITALS: BP 112/71; PULSE 102; RESP 18; TEMP 36.6; O2SAT 94
[2021-12-29 10:08] LABS: PROTEIN, TOTAL 4.7 g/dL (6.1-8.1)
[2021-12-29] MEDS: citalopram 20 mg Tablet 40 MG PO (10:08)
[2021-12-29] MEDS: atorvastatin 40 mg Tablet 20 MG PO (10:08)
[2021-12-29] MEDS: metoclopramide 5 mg/mL SDV 2 mL 10 MG IVP (10:08)
[2021-12-29] MEDS: aspirin 325 mg Tablet PO (10:08)
--- NOTE | 2021-12-29 10:38 | PC.CHAP ---
Pastoral Care Encounter/Spiritual Assessment Type of Contact [] Declined drawer waxer visit [] Patient/Family/Request visit [] Outpatient visit [] Follow-up visit [] Physician referral [] Code/Alert [x] Routine visit [] Staff referral [] Actively dying [] Patient sleeping [] Family support [] [] Out of room [] Palliative care [] [] Receiving care in room [] Pre-surgical visit [] Trauma [] Long length of stay [] ICU visit [] Other: Relational/Emotional Strength [x] Patient feels connected with others/family/visitors/staff [] Distress [] Loneliness/isolation [] Abandonment Spirituality of Patient [x] Person of [place] [x] Attends Jewish of their [place] [x] Believes in Prayer [] Reads Bible or Restoration materials [] There are Spiritual issues to be addressed Human Resources Leader Interventions x] Prayer [x] Active listening [x] Non-anxious presence [] Spiritual/emotional support [] Crisis/trauma care [] Spiritual counseling [] Bereavement support [] Provided bereavement packet [] Provided Bible/devotional materials [] Provided toy/stuffed animal, coloring book to patient or family member [] Provided Communion [] Anointing/[place] [] Salvation [x] Completed spiritual assessment [] Other: Impact on Illness or Injury [] Angry [] Fearful [] Anxious [] Often cries [] Exhaustion [] Unable to work [] Unable to attend judaism [] Unable to walk/stand [] Unable to read [] Unable to drive [] Unable to eat/drink [] Unable to sleep [] Unable to be with family [] Patient intubated [] Other: Summary Time spent with patient 10min
[2021-12-29 11:22] LABS: Creatinine, Random Urine 99 mg/dL (20-275); Protein, Total, Random 36 mg/dL (5-24); Protein/Creatinine Ratio 0.364 (0.021-0.161); Protein/Creatinine Ratio 364 mg/g creat (21-161)
[2021-12-29 11:46] VITALS: BP 102/64; PULSE 104; RESP 18; TEMP 36.6; O2SAT 90
[2021-12-29 12:00] LABS: Uric Acid 3.5 mg/dL (2.4-5.7)
--- NOTE | 2021-12-29 12:31 | P.TS_ITS ---
Transfer Summary Providers Date of Admission: 12/28/21 17:12 Date of Discharge/Transfer: 12/29/21 Attending Provider at Admission: Bradley Dye MD Attending Provider at Transfer: Drew Quinones Primary Care Provider: Brady Mckeon MD Transfer Plans: Anticipated date of transfer: 12/29/21 . Diagnoses at Discharge Discharge Diagnosis (1) Lymphocytosis: Status: Acute (2) Alkaline phosphatase elevation: Status: Acute (3) Abdominal pain: Status: Acute (4) Transaminitis: Status: Acute (5) Leukocytosis: Status: Acute (6) UTI (urinary tract infection): Status: Acute (7) Hypotension: Status: Acute (8) Blood culture positive for microorganism: Status: Acute Reason for Visit Reason for Visit N/V/D Hospital Course Hospital Course Pleasant 61-year-old lady with history of CVA, mild residual cognitive impairment, worsening speech therapy, history of HTN, depression, [place], liver cirrhosis, no alcohol intake in the last year, history of traumatic splenic rupture and splenectomy, history of C. 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 No exposure to molds. No history of tick bite. No cat or dog bites. Denies fever, does complain of night sweats. No shortness of breath, chest pain, cough. Abdominal tenderness/soreness in multiple locations. On presentation with leukocytosis, lymphocytic predominance, and monocytes, 25.6, alkaline phosphatase elevation optimized 1054 during his hospitalization, with T bili normal, mild transaminitis, AST ranging 70s-90s, ALT ranging 70s-109. On initial testing with abnormality elevated to 553. CT abdomen pelvis on presentation without acute abnormality, with punctate cholelithiasis. Chest x- ray unremarkable. She started empirically on Zosyn, subsequently broadened with vancomycin with rising leukocytosis, IV hydration, symptomatic management. Microbiologic studies include stool studies, negative for C. difficile, Shigella, Shiga toxin, Campylobacter, Salmonella, Giardia, Entamoeba, Cryptosporidium. Positive lactoferrin, positive Hemoccult. Viral hepatitis panel negative. HIV nonreactive. Peripheral smear with left shift monocytosis as well as blast cells, additional review last night and with rise in leukocytosis up to 40,000 this morning, on discussion with hematology noted multiple immature lymphocytes, atypical lymphocytes, concerning for lymphoproliferative disorder, possibly acute leukemia. Blood culture with 2/4 bottles positive for staph epidermis, possibly contamination, repeat cultures obtained 12/28, so far negative. Urine culture negative. GI work-up for other causes of alkaline phosphatase so far coming back without suggestion of cholestasis/cholecystitis, with MRCP negative for obstruction, cholelithiasis without findings to suggest acute cholecystitis. She also had CT scan of the chest which was unremarkable, and bone scan which showed no evidence of osseous metastatic disease. HIDA scan considered, but has to wait 48 hours since bone scan. Ultrasound upper quadrant obtained, technically limited evaluation due to body habitus. Noted cholelithiasis without acute cholecystitis. Abnormal liver, liver enlarged and very heterogenous. Although no discrete masses identified an infiltrating neoplasm cannot be excluded based on appearance. Consider follow-up abdominal/pelvic CT with IV and oral contrast. Additional arranging serologies MICHAELA, AMA, ASMA, were also requested but are send outs, not back yet. COVID-19 PCR, rapidantigen negative. Cryptococcal antigen pending. Galactomannan pending. Negative Monospot. Additional viral serologies were also obtained with high EBV IgG, EBV nuclear antigen, elevated IgM, capsid antigen antibodies, with interpretation of suggestion of past EBV infection. Serology for CMV noted returning with elevated IgM antibody, more than 240, IgG antibody elevated 2.7. Discussed with hematology as well, however, consideration this may not entirely explain the picture of severe alkaline phosphatase elevation and concerning appearance of peripheral smear. On behest of hematology arrangements made for additional assessment at tertiary facility and is kindly accepted [facility] for further evaluation on discussion with Dr. [place], discussion of risks and benefits of transfer with her to which she is in agreement. Physical Exam Const: COMMON NORMALS: alert GENERAL APPEARANCE: cooperative NUTRITIONAL APPEARANCE: obese ORIENTATION/CONSCIOUSNESS: Yes awake OTHER: Nauseated. HENMT: COMMON NORMALS: normocephalic, EAC's normal, Normal external nose present and moist oral mucous membranes HEAD & SCALP: normocephalic NOSE: Normal external nose present EXTERNAL AUDITORY CANAL: EAC's normal Neck/C-Spine: COMMON NORMALS: no meningeal signs Chest: CHEST: Yes Symmetrical chest wall rise Resp: COMMON NORMALS: clear to auscultation bilaterally AUSCULTATION: clear to auscultation bilaterally Cardio: COMMON NORMALS: regular rate, regular rhythm and No murmurs present (Cardio) RATE: regular rate RHYTHM: regular rhythm GI: COMMON NORMALS: Normal to inspection, nondistended, normoactive bowel sounds present and Soft to palpation PALPATION: Yes Soft to palpation and Yes Tenderness to palpation present (GI) (multiple locations BL) OTHER: Multifocal abdominal wall tenderness. No specific right upper quadrant tenderness. Extremity: COMMON NORMALS: no pedal edema Neuro: COMMON NORMALS: moves all extremities SENSORIUM/ORIENTATION: Yes alert MENINGEAL SIGNS: Yes no meningeal signs Psych: COMMON NORMALS: mental status grossly normal Skin: COMMON NORMALS: no wounds RASHES: no rashes TS Data Studies Completed and Pending Pending at discharge Category Date Time Status AMA [Mitochondrial AB Screen] Stat Lab 12/26/21 19:50 Received MICHAELA Profile Rheumatology Stat Lab 12/26/21 19:50 Results Aspergillus AG,EIA,Serum Stat Lab 12/26/21 19:50 Received Blood Culture Stat Lab 12/26/21 19:50 Results Blood Culture Stat Lab 12/28/21 19:25 Results Cryptococcal Antigen w/ Reflex Stat Lab 12/26/21 19:50 Received FREE LIGHT CHAIN SERUM [KAPPA/LAMBDA LIGHT FREE SERUM] Lab 12/27/21 12:30 Received Routine Fibrinogen Routine Lab 12/29/21 11:22 Received [place] Free Light Chains Urine Stat Lab 12/27/21 18:32 Received LDH [Lactate Dehydrogenase] Routine Lab 12/29/21 11:22 Results Miscellaneous Test Routine Lab 12/26/21 14:50 Stop Req Miscellaneous Test Routine Lab 12/26/21 17:50 Stop Req SPEP [Total Protein Electrophoresis] Routine Lab 12/27/21 12:30 Results Smooth Muscle AB Screen w/Refl Routine Lab 12/28/21 19:50 Received Uric Acid Routine Lab 12/29/21 11:22 Results Urine Protein Electrop Random Routine Lab 12/27/21 18:32 Results Vancomycin Trough Timed Lab 12/29/21 15:00 Ordered Labs from last 24 hours 12/29/21 12/29/21 12/29/21 11:22 11:22 04:16 WBC RBC Hgb Hct MCV MCH MCHC RDW Plt Count MPV Lymph % (Auto) [place] % (Auto) Lymph # (Auto) [place] # (Auto) Total Counted Atypical Lymphs % Absolute Neutrophils Segmented Neutrophils Abs Segm Neuts (Man) Band Neutrophils Abs Band Neuts (Man) Absolute Lymphocytes Lymphocytes (Manual) Monocytes (Manual) Absolute Monocytes Eosinophils (Manual) Absolute Eosinophils Basophils (Manual) Absolute Basophils Platelet Estimate Hypochromasia Fibrinogen Pending Sodium 135 L Potassium 4.8 Chloride 109 H Carbon Dioxide 18 L Anion Gap 12.8 BUN 10 Creatinine 0.5 GFR Calculation 125.4 Glucose 65 Calculated Osmolality 277 L Uric Acid 3.5 Calcium 7.9 L Phosphorus 2.4 L Magnesium 2.0 Total Bilirubin 0.6 AST 96 H ALT 85 H Alkaline Phosphatase 984 H Lactate Dehydrogenase Pending Total Protein 4.7 L Albumin 1.9 L Globulin 2.8 Ur Random Creatinine U Random Total Protein Protein/Creatinin Ratio Protein/Creat Ratio 24h PLACIDO-1 Antibody SS-A Antibody SS-B Antibody Sm (Lin) Antibody FIBREGLASS GUN HAND Antibody Scl-70 Antibody Centromere B Antibody Thyroid Peroxidase Ab CMV IgG Ab CMV IgM Ab EBV IgG Ab EBV IgM Ab EBV Capsid Ag IgG, IgM EBV Nuclear Antigen EBV Interpretation 12/29/21 12/27/21 12/27/21 04:16 18:32 12:30 WBC 40.0 H* RBC 5.48 H Hgb 15.0 Hct 47.1 H MCV 85.9 MCH 27.4 L MCHC 31.8 RDW 15.9 H Plt Count 439 H MPV 11.1 H Lymph % (Auto) Not Reportable [place] % (Auto) Not Reportable Lymph # (Auto) Not Reportable [place] # (Auto) Not Reportable Total Counted 100 Atypical Lymphs % 18.0 H Absolute Neutrophils 6.0 Segmented Neutrophils 12 Abs Segm Neuts (Man) 4.8 Band Neutrophils 3.0 Abs Band Neuts (Man) 1.2 Absolute Lymphocytes 33.2 H Lymphocytes (Manual) 65 Monocytes (Manual) 2.0 Absolute Monocytes 0.8 H Eosinophils (Manual) 0 Absolute Eosinophils 0.0 Basophils (Manual) 0.0 Absolute Basophils 0.0 Platelet Estimate Normal Hypochromasia 1+ H Fibrinogen Sodium Potassium Chloride Carbon Dioxide Anion Gap BUN Creatinine GFR Calculation Glucose Calculated Osmolality Uric Acid Calcium Phosphorus Magnesium Total Bilirubin AST ALT Alkaline Phosphatase Lactate Dehydrogenase Total Protein 4.7 L Albumin Globulin Ur Random Creatinine 99 U Random Total Protein 36 H Protein/Creatinin Ratio 364 H Protein/Creat Ratio 24h 0.364 H PLACIDO-1 Antibody SS-A Antibody SS-B Antibody Sm (Lin) Antibody FIBREGLASS GUN HAND Antibody Scl-70 Antibody Centromere B Antibody Thyroid Peroxidase Ab CMV IgG Ab CMV IgM Ab EBV IgG Ab EBV IgM Ab EBV Capsid Ag IgG, IgM EBV Nuclear Antigen EBV Interpretation 12/26/21 12/26/21 12/26/21 19:50 19:50 19:50 WBC RBC Hgb Hct MCV MCH MCHC RDW Plt Count MPV Lymph % (Auto) [place] % (Auto) Lymph # (Auto) [place] # (Auto) Total Counted Atypical Lymphs % Absolute Neutrophils Segmented Neutrophils Abs Segm Neuts (Man) Band Neutrophils Abs Band Neuts (Man) Absolute Lymphocytes Lymphocytes (Manual) Monocytes (Manual) Absolute Monocytes Eosinophils (Manual) Absolute Eosinophils Basophils (Manual) Absolute Basophils Platelet Estimate Hypochromasia Fibrinogen Sodium Potassium Chloride Carbon Dioxide Anion Gap BUN Creatinine GFR Calculation Glucose Calculated Osmolality Uric Acid Calcium Phosphorus Magnesium Total Bilirubin AST ALT Alkaline Phosphatase Lactate Dehydrogenase Total Protein Albumin Globulin Ur Random Creatinine U Random Total Protein Protein/Creatinin Ratio Protein/Creat Ratio 24h PLACIDO-1 Antibody <1.0 neg SS-A Antibody <1.0 neg SS-B Antibody <1.0 neg Sm (Lin) Antibody <1.0 neg FIBREGLASS GUN HAND Antibody 1.1 pos A Scl-70 Antibody <1.0 neg Centromere B Antibody <1.0 neg Thyroid Peroxidase Ab 1 CMV IgG Ab CMV IgM Ab EBV IgG Ab 97.80 H EBV IgM Ab <36.00 EBV Capsid Ag IgG, IgM <36.00 EBV Nuclear Antigen 124.00 H EBV Interpretation See note 12/26/21 19:50 WBC RBC Hgb Hct MCV MCH MCHC RDW Plt Count MPV Lymph % (Auto) [place] % (Auto) Lymph # (Auto) [place] # (Auto) Total Counted Atypical Lymphs % Absolute Neutrophils Segmented Neutrophils Abs Segm Neuts (Man) Band Neutrophils Abs Band Neuts (Man) Absolute Lymphocytes Lymphocytes (Manual) Monocytes (Manual) Absolute Monocytes Eosinophils (Manual) Absolute Eosinophils Basophils (Manual) Absolute Basophils Platelet Estimate Hypochromasia Fibrinogen Sodium Potassium Chloride Carbon Dioxide Anion Gap BUN Creatinine GFR Calculation Glucose Calculated Osmolality Uric Acid Calcium Phosphorus Magnesium Total Bilirubin AST ALT Alkaline Phosphatase Lactate Dehydrogenase Total Protein Albumin Globulin Ur Random Creatinine U Random Total Protein Protein/Creatinin Ratio Protein/Creat Ratio 24h PLACIDO-1 Antibody SS-A Antibody SS-B Antibody Sm (Lin) Antibody FIBREGLASS GUN HAND Antibody Scl-70 Antibody Centromere B Antibody Thyroid Peroxidase Ab CMV IgG Ab 2.70 H CMV IgM Ab >240.00 H EBV IgG Ab EBV IgM Ab EBV Capsid Ag IgG, IgM EBV Nuclear Antigen EBV Interpretation Completed Studies During Hospitalization Category Date Time Status CT abdomen renal stone [CT kidney stone 90129] Urgent Cat Scan 12/26/21 16:[address] chest wo con [id number] Routine Cat Scan 12/27/21 10:31 Completed CXRP [XR chest 1V portable [id number]] Stat Exams 12/26/21 15:30 Completed MR MRCP [id number] Urgent MRI 12/26/21 17:22 Completed NM bone scan whole body* [id number] Routine Nuc Med 12/28/21 11:14 Completed US abdomen limited [id number] Routine Ultrasound 12/29/21 06:00 Completed Laboratory Last Values WBC 40.0 10^3/uL (4.0-10.0) H* 12/29/21 04:16 RBC 5.48 10^6/uL (4.1-5.3) H 12/29/21 04:16 Hgb 15.0 g/dL (11.5-15.3) 12/29/21 04:16 Hct 47.1 % (37.0-47.0) H 12/29/21 04:16 MCV 85.9 fl (81-99) 12/29/21 04:16 MCH 27.4 pg (28.0-34.0) L 12/29/21 04:16 MCHC 31.8 g/dL (30.0-36.0) 12/29/21 04:16 RDW 15.9 % (12.1-15.1) H 12/29/21 04:16 Plt Count 439 10^3/cmm (130-400) H 12/29/21 04:16 MPV 11.1 fL (7.4-10.4) H 12/29/21 04:16 Neut % (Auto) 14.9 % 12/28/21 04:41 Lymph % (Auto) Not Reportable 12/29/21 04:16 [place] % (Auto) Not Reportable 12/29/21 04:16 Eos % (Auto) 0.4 % 12/28/21 04:41 Baso % (Auto) 2.2 % 12/28/21 04:41 Neut # (Auto) 5.64 10^3/uL (1.8-7.7) 12/28/21 04:41 Lymph # (Auto) Not Reportable 12/29/21 04:16 [place] # (Auto) Not Reportable 12/29/21 04:16 Eos # (Auto) 0.2 10^3/uL (0.0-0.8) 12/28/21 04:41 Baso # (Auto) 0.8 10^3/uL (0.0-0.1) H 12/28/21 04:41 Nucleated RBC % (auto) 0 % 12/28/21 04:41 Total Counted 100 (0-100) 12/29/21 04:16 Atypical Lymphs % 18.0 % (0-5) H 12/29/21 04:16 Absolute Neutrophils 6.0 10^3/cmm (1.4-6.5) 12/29/21 04:16 Segmented Neutrophils 12 % 12/29/21 04:16 Abs Segm Neuts (Man) 4.8 10/cmm (1.6-7.1) 12/29/21 04:16 Band Neutrophils 3.0 % 12/29/21 04:16 Abs Band Neuts (Man) 1.2 10^3/cmm (0.0-1.2) 12/29/21 04:16 Absolute Lymphocytes 33.2 10^3/cmm (1.2-3.4) H 12/29/21 04:16 Lymphocytes (Manual) 65 % 12/29/21 04:16 Monocytes (Manual) 2.0 % 12/29/21 04:16 Absolute Monocytes 0.8 10^3/cmm (0.1-0.6) H 12/29/21 04:16 Eosinophils (Manual) 0 % 12/29/21 04:16 Absolute Eosinophils 0.0 10^3/cmm (0.0-0.7) 12/29/21 04:16 Basophils (Manual) 0.0 % 12/29/21 04:16 Absolute Basophils 0.0 10^3/cmm (0.0-0.2) 12/29/21 04:16 Nucleated RBCs # 0.0 /100WBC 12/28/21 04:41 Platelet Estimate Normal (Normal) 12/29/21 04:16 Hypochromasia 1+ H 12/29/21 04:16 ESR 10 mm/hr (0-15) 12/26/21 14:50 PT 14.50 SECONDS (12.1-14.9) 12/26/21 19:50 INR 1.10 (0.8-1.2) 12/26/21 19:50 Sodium 135 mmol/L (136-145) L 12/29/21 04:16 Potassium 4.8 mmol/L (3.5-5.1) 12/29/21 04:16 Chloride 109 mmol/L (98-107) H 12/29/21 04:16 Carbon Dioxide 18 mmol/L (22-29) L 12/29/21 04:16 Anion Gap 12.8 (5-19) 12/29/21 04:16 BUN 10 mg/dL (8-23) 12/29/21 04:16 Creatinine 0.5 mg/dL (0.5-0.9) 12/29/21 04:16 GFR Calculation 125.4 mL/min (90-130) 12/29/21 04:16 Glucose 65 mg/dL (65-115) 12/29/21 04:16 Calculated Osmolality 277 mOsm/kg (285-295) L 12/29/21 04:16 Lactate 1.2 mmol/L (0.5-2.2) 12/27/21 04:24 Uric Acid 3.5 mg/dL (2.4-5.7) 12/29/21 11:22 Calcium 7.9 mg/dL (8.5-10.5) L 12/29/21 04:16 Phosphorus 2.4 mg/dL (2.5-4.5) L 12/29/21 04:16 Magnesium 2.0 mg/dL (1.7-2.3) 12/29/21 04:16 Ferritin 400 ng/mL (15-150) H 12/27/21 04:24 Total Bilirubin 0.6 mg/dL (0.15-1.2) 12/29/21 04:16 Direct Bilirubin 0.30 mg/dL (0.00-0.30) 12/26/21 14:50 Indirect Bilirubin 0.30 12/26/21 14:50 GGT 553 U/L (5-36) H 12/26/21 14:50 AST 96 U/L (0-32) H 12/29/21 04:16 ALT 85 U/L (0-33) H 12/29/21 04:16 Alkaline Phosphatase 984 IU/L (35-105) H 12/29/21 04:16 Creatine Kinase 44 U/L (26-192) 12/27/21 04:24 C-Reactive Protein 10.6 mg/L (0.0-4.9) H 12/27/21 04:24 Total Protein 4.7 g/dL (6.6-8.7) L 12/29/21 04:16 Albumin 1.9 g/dL (3.5-5.2) L 12/29/21 04:16 Globulin 2.8 g/dL (1.3-4.6) 12/29/21 04:16 Lipase 13 U/L (13-60) 12/26/21 14:50 Procalcitonin 0.21 ng/mL (0-0.5) 12/26/21 14:50 TSH 2.30 uIU/mL (0.27-4.20) 12/26/21 14:50 Urine Color Dark yellow (Yellow) 12/26/21 14:50 Urine Appearance Sl hazy (CLEAR) 12/26/21 14:50 Urine pH 5 (5-7) 12/26/21 14:50 Ur Specific [place] 1.020 (1.005-1.030) 12/26/21 14:50 Urine Protein Neg (Negative) 12/26/21 14:50 Urine Glucose (UA) Norm (Normal) 12/26/21 14:50 Urine Ketones 1+ (Negative) H 12/26/21 14:50 Urine Blood Neg (Negative) 12/26/21 14:50 Urine Nitrate Negative (Negative) 12/26/21 14:50 Urine Bilirubin 1+ (Negative) H 12/26/21 14:50 Urine Urobilinogen 4 mg/dL (Negative) H 12/26/21 14:50 Ur Leukocyte Esterase 2+ (Negative) H 12/26/21 14:50 Urine RBC None /hpf (0-2) 12/26/21 14:50 Urine WBC 15-25 /hpf (0-5) H 12/26/21 14:50 Ur Squamous Epith Cells 5-10 /hpf (0-5) H 12/26/21 14:50 Amorphous Sediment Not Reportable 12/26/21 14:50 Urine Bacteria 2+ /hpf (NONE) H 12/26/21 14:50 Hyaline Casts 10-15 /lpf H 12/26/21 14:50 Coarse Granular Casts 0-4 /lpf H 12/26/21 14:50 Ur Random Creatinine 99 mg/dL (20-275) 12/27/21 18:32 U Random Total Protein 36 mg/dL (5-24) H 12/27/21 18:32 Protein/Creatinin Ratio 364 mg/g creat (21-161) H 12/27/21 18:32 Protein/Creat Ratio 24h 0.364 (0.021-0.161) H 12/27/21 18:32 Rheumatoid Factor 12.0 IU/mL (0-14) 12/26/21 19:50 PLACIDO-1 Antibody <1.0 neg AI (<1.0 NEG) 12/26/21 19:50 SS-A Antibody <1.0 neg AI (<1.0 NEG) 12/26/21 19:50 SS-B Antibody <1.0 neg AI (<1.0 NEG) 12/26/21 19:50 Sm (Lin) Antibody <1.0 neg AI (<1.0 NEG) 12/26/21 19:50 FIBREGLASS GUN HAND Antibody 1.1 pos AI (<1.0 NEG) A 12/26/21 19:50 Scl-70 Antibody <1.0 neg AI (<1.0 NEG) 12/26/21 19:50 Centromere B Antibody <1.0 neg AI (<1.0 NEG) 12/26/21 19:50 Thyroid Peroxidase Ab 1 IU/mL (<9) 12/26/21 19:50 Complement C3c 121 mg/dL (83-193) 12/26/21 19:50 Complement C4c 41 mg/dL (15-57) 12/26/21 19:50 CH50 Classical Pathway >60 U/mL (31-60) H 12/26/21 19:50 Leuk/Lym Spec Type Cancelled 12/27/21 12:30 Leuk/Lym Clinical Info Cancelled 12/27/21 12:30 Leuk/Lymph Viability Cancelled 12/27/21 12:30 Leuk/Lym Sample Descrip Cancelled 12/27/21 12:30 Leuk/Lym # of Markers Cancelled 12/27/21 12:30 Leuk/Lym Markers Cancelled 12/27/21 12:30 Leuk/Lym Gating Strategy Cancelled 12/27/21 12:30 Leuk/Lym Interpretation Cancelled 12/27/21 12:30 Coronavirus 229E (PCR) Not detected (NOT DETECT) 12/27/21 01:15 CMV IgG Ab 2.70 U/mL H 12/26/21 19:50 CMV IgM Ab >240.00 AU/mL H 12/26/21 19:50 EBV IgG Ab 97.80 U/mL H 12/26/21 19:50 EBV IgM Ab <36.00 U/mL 12/26/21 19:50 EBV Capsid Ag IgG, IgM <36.00 U/mL 12/26/21 19:50 EBV Nuclear Antigen 124.00 U/mL H 12/26/21 19:50 EBV Interpretation See note 12/26/21 19:50 Hepatitis A IgM Ab Non-reactive (Nonreactive) 12/26/21 19:50 Hep Bs Antigen Non-reactive (Nonreactive) 12/26/21 19:50 Hep B Core IgM Ab Non-reactive (Nonreactive) 12/26/21 19:50 Hepatitis C Antibody Non-reactive (Nonreactive) 12/26/21 19:50 Monoscreen Negative (Negative) 12/26/21 14:50 HIV 1&2 Ab & HIV 1 Ag Non-reactive (Non-Reactiv) 12/26/21 19:50 HIV 1&2 Antibody Non-reactive (Non-Reactiv) 12/26/21 19:50 Influenza Type A Ag Negative (Negative) 12/27/21 01:15 Influenza Type B Ag Negative (Negative) 12/27/21 01:15 SARS-CoV-2 (PCR) Not detected (NOT DETECT) 12/27/21 01:15 Radiology Impressions Chest X-Ray 12/26/21 15:30 IMPRESSION: No acute findings. Abdomen/Pelvis CT 12/26/21 16:04 IMPRESSION: 1. No acute findings. 2. Punctate cholelithiasis. Cholangiopancreatography MRI 12/26/21 17:22 IMPRESSION: 1. Negative for biliary obstruction. 2. Cholelithiasis without findings to suggest acute cholecystitis. Chest CT 12/27/21 10:31 IMPRESSION: No acute findings. Bone Scan Nuclear Medicine 12/28/21 11:14 IMPRESSION: No evidence of osseous metastatic disease. Abdomen Ultrasound 12/29/21 06:00 IMPRESSION: 1. Technically limited evaluation of the RIGHT upper quadrant due to patient's body habitus. 2. Cholelithiasis without acute cholecystitis. 3. Abnormal liver. Liver is enlarged and very heterogeneous. Although no discrete mass is identified and infiltrating neoplasm cannot be excluded on this appearance. Consider follow-up abdomen/pelvic CT with IV and oral contrast. Recent Clincial Data Last Vital Signs Temp 97.9 F 12/29/21 11:46 Pulse 104 H 12/29/21 11:46 Resp 18 12/29/21 11:46 BP 102/64 12/29/21 11:46 Pulse Ox 90 12/29/21 11:46 Vital Signs Temp Pulse Resp BP Pulse Ox 12/29/21 11:46 97.9 F 104 H 18 102/64 90 12/29/21 08:00 97.8 F 102 H 18 112/71 94 12/29/21 06:00 98 12/29/21 03:40 98.4 F 98 18 106/72 94 Intake & Output/Weight 12/27/21 12/28/21 12/29/21 12/30/21 06:59 06:59 06:59 06:59 Intake Total 3940 / 3940 1693.333 / 6067.590 8212.000 / 1372.000 168 / 168 Output Total 300 / 300 Balance 3940 / 3940 1393.333 / 2557.240 5073.000 / 1372.000 168 / 168 Weight 108.635 kg Vitals Last Vital Signs Temp 97.9 F 12/29/21 11:46 Pulse 104 H 12/29/21 11:46 Resp 18 12/29/21 11:46 BP 102/64 12/29/21 11:46 Pulse Ox 90 12/29/21 11:46 TS Medications Medications Aspirin (Aspirin 325 Mg Tablet) 325 mg PO DAILY [facility] Last Admin: 12/29/21 10:08 Dose: 325 mg Documented by: Atorvastatin Calcium (Atorvastatin 40 Mg Tablet) 20 mg PO DAILY [facility] Last Admin: 12/29/21 10:08 Dose: 20 mg Documented by: Citalopram Hydrobromide (Citalopram 20 Mg Tablet) 40 mg PO DAILY [facility] Last Admin: 12/29/21 10:08 Dose: 40 mg Documented by: Diphenhydramine HCl (Diphenhydramine 50 Mg/Ml Sdv 1ml) 25 mg IVP Q8H PRN PRN Reason: ITCHING Enoxaparin Sodium (Enoxaparin 40 Mg/0.4 Ml Syringe) 40 mg SUBCUT Q24H [facility] Last Admin: 12/28/21 16:34 Dose: 40 mg Documented by: Piperacillin Sod/Tazobactam (Sod 3.375 gm/ Sodium Chloride) 50 mls @ 12.5 mls/hr IV Q8H [facility]; Protocol Last Infusion: 12/29/21 10:08 Dose: Infused Documented by: Vancomycin HCl 1,500 mg/ (Sodium Chloride) 250 mls @ 166.667 mls/hr IV Q12H [facility] Last Infusion: 12/29/21 04:54 Dose: Infused Documented by: Metoclopramide HCl (Metoclopramide 5 Mg/Ml Sdv 2 Ml) 10 mg IVP Q8H PRN PRN Reason: NAUSEA AND VOMITING Last Admin: 12/29/21 10:08 Dose: 10 mg Documented by: Morphine Sulfate (Morphine 4 Mg/Ml Sdv 1 Ml) 1 mg IVP Q4H PRN PRN Reason: SEVERE PAIN Non-Formulary Medication (Bupropion Hcl) 75 mg PO QAM [facility] Last Admin: 12/29/21 05:03 Dose: Not Given Documented by: Ondansetron HCl (Ondansetron 2 Mg/Ml Sdv 2 Ml) 4 mg IVP Q4H PRN PRN Reason: NAUSEA AND VOMITING Last Admin: 12/28/21 06:40 Dose: 4 mg Documented by: Pantoprazole Sodium (Pantoprazole 40 Mg Sdv) 40 mg IVP Q24H [facility] Last Admin: 12/28/21 16:34 Dose: 40 mg Documented by: Discontinued Medications Diphenoxylate HCl/Atropine (Diphenoxylate/Atropine Tablet) 1 tab PO ONCE ONE Stop: 12/26/21 14:56 Last Admin: 12/26/21 15:30 Dose: 1 tab Documented by: Sodium Chloride (Sodium Chloride 0.9%) 1,000 mls @ 999 mls/hr IV .Q1H1M ONE Stop: 12/26/21 15:43 Last Infusion: 12/26/21 21:22 Dose: Infused Documented by: Sodium Chloride (Sodium Chloride 0.9%) 1,000 mls @ 999 mls/hr IV .Q1H1M ONE Stop: 12/26/21 16:30 Last Infusion: 12/26/21 21:22 Dose: Infused Documented by: Vancomycin HCl 1,000 mg/ (Sodium Chloride) 250 mls @ 250 mls/hr IV ONCE ONE; Protocol Stop: 12/26/21 18:01 Last Infusion: 12/26/21 21:22 Dose: Infused Documented by: Piperacillin Sod/Tazobactam (Sod 3.375 gm/ Sodium Chloride) 50 mls @ 100 mls/hr IV ONCE ONE; Protocol Stop: 12/26/21 17:31 Last Infusion: 12/26/21 21:22 Dose: Infused Documented by: Sodium Chloride (Sodium Chloride 0.9%) 1,000 mls @ 100 mls/hr IV .Q10H [facility] Last Infusion: 12/27/21 11:16 Dose: Infused Documented by: Sodium Chloride (Sodium Chloride 0.9%) 500 mls @ 999 mls/hr IV .Q31M ONE Stop: 12/26/21 18:21 Last Infusion: 12/26/21 21:22 Dose: Infused Documented by: Magnesium Sulfate 1 gm/ Sodium (Chloride) 52 mls @ 104 mls/hr IV ONCE ONE Stop: 12/28/21 15:59 Last Infusion: 12/28/21 17:35 Dose: Infused Documented by: Ondansetron HCl (Ondansetron 2 Mg/Ml Sdv 2 Ml) 4 mg IVP ONCE ONE Stop: 12/26/21 14:56 Last Admin: 12/26/21 15:30 Dose: 4 mg Documented by: Allergies Sulfa (Sulfonamide Antibiotics) Allergy (Verified 12/26/21 14:13) HIVES nitrofurantoin [From Macrobid] Adverse Reaction (Verified 12/26/21 14:13) SHORTNESS OF BREATH Home Medications aspirin 325 mg tablet 325 mg PO DAILY 03/03/20 [History Confirmed 12/26/21] loratadine 10 mg tablet 10 mg PO DAILY 03/03/20 [History Confirmed 12/26/21] omeprazole 20 mg capsule,delayed release 20 mg PO DAILY 03/03/20 [History Confirmed 12/26/21] lisinopril 5 mg tablet 10 mg PO DAILY tab 05/09/20 [History Confirmed 12/26/21] atorvastatin 10 mg tablet 20 mg PO DAILY tab 09/22/21 [History Confirmed 12/26/21] bupropion HCl 75 mg tablet 75 mg PO QAM 30 Days #30 tab 09/22/21 [Rx Confirmed 12/26/21] citalopram 40 mg tablet 40 mg PO DAILY 30 Days #30 tab 09/22/21 [Rx Confirmed 12/26/21] Discharge Plan Discharge Patient Disposition: Xfer Short-Term Hosp Condition: Stable Prescriptions: No Action loratadine 10 mg tablet 10 mg PO DAILY 0RF omeprazole 20 mg capsule,delayed release(DR/EC) 20 mg PO DAILY 0RF aspirin 325 mg tablet 325 mg PO DAILY 0RF lisinopril 5 mg tablet 10 mg PO DAILY 0RF atorvastatin 10 mg tablet 20 mg PO DAILY 0RF citalopram 40 mg tablet 40 mg PO DAILY 30 Days Qty: 30 5RF bupropion HCl 75 mg tablet 75 mg PO QAM 30 Days Qty: 30 5RF Discharge Orders: Transfer Out of Facility (Order); Ordered 12/29/21 Ordered By: Drew Quinones Referrals: Brady Mckeon MD [Primary Care Provider] - Transfer Attestations Time Spent in Transfer Care: greater than 30 min Quality Metrics Clinical Quality Measures [ No reported AMI, CVA or VTE this stay] Coding Level of Care Code Acute Riverboat Master for Chg Fwd Diagnoses Alkaline phosphatase elevation R74.8 Lymphocytosis D72.820 Abdominal pain R10.9 Transaminitis R74.01 Leukocytosis D72.829 UTI (urinary tract infection) N39.0 Hypotension I95.9 Blood culture positive for microorganism R79.89
[2021-12-29 12:41] LABS: Fibrinogen 91 mg/dL (174-498)
[2021-12-29 12:45] LABS: Lactate Dehydrogenase 402 U/L (135-214)
[2021-12-29 13:03] LABS: KAPPA/LAMBDA LIGHT CHAINS FREE 0.71 (0.26-1.65); LAMBDA LIGHT CHAIN, FREE, SERU 62.3 mg/L (5.7-26.3)
[2021-12-29 13:41] LABS: Cryptococcal Source Serum
--- NOTE | 2021-12-29 13:41 | PC.NURSE ---
PT HAS BEEN ACCEPTED AT [facility]. BED 9 HAS BEEN ASSIGNED TO THE PT. DR ESPINAL HAS BEEN NOTIFIED AND COBRA FORM HAS BEEN FILLED OUT. REPORT WAS CALLED TO Mari CHAVARRIA RN. ALL QUESTIONS ANSWERED. PT WILL BE TRANSFERRING WITH IV AND IV ABX. 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 NO OTHER EQUIPMENT WILL BE NEEDED FOR TRANSPORT. [facility] WILL BE HERE SHORTLY TO CLOTH BLEACHING RANGE TENDER PT. PTS FAMILY IS IN THE ROOM WITH PT AND AWARE OF SITUATION.
[2021-12-29 15:13] LABS: ABNORMAL PROTEIN BAND 1 0.2 g/dL (NONE DETECTED); ALPHA 1 GLOBULIN 0.3 g/dL (0.2-0.3); ALPHA 2 GLOBULIN 0.6 g/dL (0.5-0.9); BETA 1 GLOBULIN 0.3 g/dL (0.4-0.6); BETA 2 GLOBULIN 0.4 g/dL (0.2-0.5); GAMMA GLOBULIN 1.1 g/dL (0.8-1.7)
[2021-12-29 15:17] VITALS: BP 102/64; PULSE 104; RESP 18; TEMP 36.6; O2SAT 90
--- NOTE | 2021-12-29 15:17 | PC.NURSE ---
PT SAFELY LEFT WITH AMBULANCE PERSONNEL AT 1410
[2021-12-30 17:56] LABS: ANA PATTERN Nuclear, Speckled; ANA SCREEN, IFA POSITIVE (NEGATIVE); ANA TITER 1:40 titer
[2021-12-30 19:17] LABS: Aspergillus AG,EIA,Serum NOT DETECTED; Aspergillus Galactomannan Inde <0.50
[2021-12-31 10:23] LABS: DNA AB (DS) CRITHIDIA,IFA NEGATIVE (NEGATIVE)
[2021-12-31 10:27] LABS: Smooth Muscle Ab Screen NEGATIVE (NEGATIVE)
[2021-12-31 11:44] LABS: Miscellaneous Test SEE COMMENTS
[2021-12-31 19:49] LABS: Kappa Free Light Chains Urine 426.73 mg/L (<=32.90)
[2022-01-01 17:03] LABS: Albumin,Urine Random 11 %; Alpha-1-Globulins Urine Random 7 %; Alpha-2-Globulins Urine Random 14 %; Beta-Globulin,Urine Random 34 %; Gamma Globulin,Urine Random 33 %
[2022-01-07 14:37] LABS: Leukemia Profile (BBPL) See Report
[2022-01-07 14:38] LABS: Lymphoma Profile (BBPL) See Report
== END 2021-12-29 14:10 | disposition short-term general hospital (02) | DRG 815 ==
LOC: ER 19:37 → MEDSURG 19:45
PROVIDERS: Admitting Provider Family Medicine; Emergency Provider Emergency Medicine; PCP Family Medicine; Visit Provider Internal Medicine
DX: D72.820 Lymphocytosis (symptomatic) (principal); N39.0 Urinary tract infection, site not specified; K80.20 Calculus of gallbladder without cholecystitis without obstruction; R74.8 Abnormal levels of other serum enzymes; F41.9 Anxiety disorder, unspecified; Z86.718 Personal history of other venous thrombosis and embolism; I10 Essential (primary) hypertension; I69.918 Other symptoms and signs involving cognitive functions following unspecified cerebrovascular disease; Z87.891 Personal history of nicotine dependence; I95.9 Hypotension, unspecified; E86.0 Dehydration; F32.A Depression, unspecified; K70.30 Alcoholic cirrhosis of liver without ascites; F10.11 Alcohol abuse, in remission; D75.839 Thrombocytosis, unspecified; E83.42 Hypomagnesemia; Z90.81 Acquired absence of spleen
CPT/HCPCS: 36415; 71045; 71250; 74176; 74181; 76705; 78306; 80053; 80074; 80503; 81001; 82247; 82248; 82274; 82550; 82570; 82728; 82977; 83516; 83605; 83615; 83630; 83690; 83735; 83883; 84100; 84145; 84155; 84156; 84165; 84166; 84443; 84550; 85007; 85025; 85384; 85610; 85651; 86140; 86160; 86162; 86235; 86255; 86308; 86335; 86376; 86403; 86431; 86664; 86665; 87040; 87086; 87150; 87186; 87205; 87305; 87328; 87329; 87493; 87506; 87635; 87804; 87806; 88184; 88185; 96365; 96367; 96372; 96375; 99285; A9561; C9113; G0378; J1650; J2405; J2543; J2765; J3370; J3475; J7030; J7040; J7050

== ENCOUNTER 2022-01-11 13:40 | Outpatient (CLI) | payer OTHER, SELFPAY ==
--- NOTE | 2022-01-11 14:12 | USCV_ITS ---
Shelly Schilling Age: 61 Gender: F : 1960 Exam Date: 01/11/2022 14:48 Ordering Phys: Brady Mckeon MD Technologist: BECKY Exam Location: [facility] [place] Indication: Swelling of limb HISTORY: Lower extremity swelling. PROCEDURES: Venous duplex imaging was performed in bilateral lower extremities. The following venous structures were evaluated: common femoral vein, profunda vein, proximal portion of the greater saphenous vein, superficial femoral vein, and the popliteal vein. In addition, the posterior tibial and peroneal trunk were evaluated. FINDINGS: There appears to be a significant amount of edema in right lower leg. Normal 2-D Doppler and augmentation and compressibility throughout the lower extremity venous structures. Additional imaging through the proximal calf veins also reveals no thrombus. Limited evaluation of the greater saphenous vein is patent with no thrombus.. CONCLUSIONS No evidence of right lower extremity DVT. No evidence of left lower extremity DVT. Right lower leg edema Kuldip Hernandez MD (Electronically Signed) Final Date: 12 January 2022 10:28 S
== END 2022-01-11 13:41 | disposition home or self-care (01) ==
LOC: RAD 13:41
PROVIDERS: PCP Family Medicine; Visit Provider Family Medicine
DX: M79.89 Other specified soft tissue disorders (principal); R60.9 Edema, unspecified
CPT/HCPCS: 93970

== ENCOUNTER 2022-01-25 09:48 | Outpatient (RCR) | payer OTHER, SELFPAY ==
[2022-01-11 10:25] VITALS: BP 147/75; PULSE 75; RESP 18; TEMP 36.5; O2SAT 97
[2022-01-11 10:43] LABS: Basophils % 0.1 %; Eosinophils # 0.4 10^3/uL (0.0-0.8); Eosinophils % 1.3 %; Hematocrit 28.4 % (37.0-47.0); Hemoglobin 9.1 g/dL (11.5-15.3); Lymphocytes % 15.9 %; Mean Corpuscular Hemoglobin 29.3 pg (28.0-34.0); Mean Corpuscular Volume 91.3 fl (81-99); Monocytes # 2.1 10^3/uL (0.2-0.9); Monocytes % 6.8 %; Neutrophils # 23.37 10^3/uL (1.8-7.7); Neutrophils % 74.7 %; Nucleated Red Blood Cells % 0.1 %; Platelet Count 673 10^3/cmm (130-400); Red Blood Count 3.11 10^6/uL (4.1-5.3); Red Cell Distribution Width 19.2 % (12.1-15.1)
[2022-01-11 10:58] LABS: Alanine Aminotransferase 91 U/L (0-33); Albumin Level 2.4 g/dL (3.5-5.2); Alkaline Phosphatase 830 IU/L (35-105); Anion Gap 10.7 (5-19); Aspartate Amino Transferase 44 U/L (0-32); Blood Urea Nitrogen 18 mg/dL (8-23); Calcium 8.1 mg/dL (8.5-10.5); Carbon Dioxide 22 mmol/L (22-29); Chloride 111 mmol/L (98-107); Globulin 3.5 g/dL (1.3-4.6); Glomerular Filtration Rate 63.7 mL/min (90-130); Glucose 69 mg/dL (65-115); Osmolality Calculated 290 mOsm/kg (285-295); Potassium 3.7 mmol/L (3.5-5.1); Sodium 140 mmol/L (136-145); Total Bilirubin 0.8 mg/dL (0.15-1.2); Total Protein 5.9 g/dL (6.6-8.7)
[2022-01-11 11:09] LABS: Slide Review Slide Review Perform
[2022-01-11 11:10] LABS: White Blood Count 31.3 10^3/uL (4.0-10.0)
[2022-01-14 10:47] LABS: Basophils % 0.2 %; Eosinophils # 0.3 10^3/uL (0.0-0.8); Eosinophils % 1.2 %; Hematocrit 28.3 % (37.0-47.0); Lymphocytes # 4.3 10^3/uL (0.8-4.8); Lymphocytes % 16.3 %; Mean Corpuscular HGB Conc 31.8 g/dL (30.0-36.0); Mean Corpuscular Hemoglobin 29.4 pg (28.0-34.0); Mean Corpuscular Volume 92.5 fl (81-99); Mean Platelet Volume 10.4 fL (7.4-10.4); Monocytes # 1.1 10^3/uL (0.2-0.9); Monocytes % 3.9 %; Neutrophils # 20.54 10^3/uL (1.8-7.7); Neutrophils % 77.2 %; Nucleated Red Blood Cells % 0.1 %; Platelet Count 650 10^3/cmm (130-400); Red Blood Count 3.06 10^6/uL (4.1-5.3); Red Cell Distribution Width 20.1 % (12.1-15.1); White Blood Count 26.6 10^3/uL (4.0-10.0)
[2022-01-14 10:54] VITALS: BP 139/79; PULSE 78; RESP 18; TEMP 36.2; O2SAT 97
[2022-01-14 11:25] LABS: Alanine Aminotransferase 95 U/L (0-33); Albumin Level 2.7 g/dL (3.5-5.2); Alkaline Phosphatase 849 IU/L (35-105); Anion Gap 12.8 (5-19); Aspartate Amino Transferase 48 U/L (0-32); Blood Urea Nitrogen 19 mg/dL (8-23); Calcium 8.2 mg/dL (8.5-10.5); Carbon Dioxide 23 mmol/L (22-29); Chloride 110 mmol/L (98-107); Globulin 3.3 g/dL (1.3-4.6); Glomerular Filtration Rate 63.7 mL/min (90-130); Glucose 103 mg/dL (65-115); Osmolality Calculated 297 mOsm/kg (285-295); Potassium 3.8 mmol/L (3.5-5.1); Sodium 142 mmol/L (136-145); Total Bilirubin 0.6 mg/dL (0.15-1.2)
[2022-01-18 10:00] VITALS: BP 159/89; PULSE 78; RESP 18; TEMP 36.2; O2SAT 99
[2022-01-18 10:33] LABS: Alanine Aminotransferase 114 U/L (0-33); Albumin Level 2.9 g/dL (3.5-5.2); Alkaline Phosphatase 783 IU/L (35-105); Anion Gap 10.8 (5-19); Aspartate Amino Transferase 48 U/L (0-32); Blood Urea Nitrogen 14 mg/dL (8-23); Calcium 8.3 mg/dL (8.5-10.5); Carbon Dioxide 25 mmol/L (22-29); Chloride 110 mmol/L (98-107); Globulin 3.1 g/dL (1.3-4.6); Glomerular Filtration Rate 85.1 mL/min (90-130); Glucose 73 mg/dL (65-115); Osmolality Calculated 293 mOsm/kg (285-295); Potassium 3.8 mmol/L (3.5-5.1); Sodium 142 mmol/L (136-145); Total Bilirubin 0.5 mg/dL (0.15-1.2)
[2022-01-18 10:46] LABS: Mean Corpuscular Hemoglobin 29.6 pg (28.0-34.0); Mean Corpuscular Volume 95.4 fl (81-99); Mean Platelet Volume 11.1 fL (7.4-10.4); Platelet Count 537 10^3/cmm (130-400); Red Blood Count 3.04 10^6/uL (4.1-5.3); Red Cell Distribution Width 21.5 % (12.1-15.1); White Blood Count 21.6 10^3/uL (4.0-10.0)
[2022-01-18 11:13] LABS: Slide Review Slide Review Perform
[2022-01-18 11:17] LABS: Absolute Segmented Neutrophil 11.9 10/cmm (1.6-7.1); Band Neutrophils Absolute 0.2 10^3/cmm (0.0-1.2); Eosinophils 0 %; Lymphocytes 38 %; Segmented Neutrophils 55 %; Total Cells Counted 100 (0-100)
[2022-01-18 11:18] LABS: Lymphocytes Absolute 9.1 10^3/cmm (1.2-3.4)
[2022-01-18 11:20] LABS: Absolute Neutrophil 12.1 10^3/cmm (1.4-6.5); Anisocytosis 2+; Giant Platelets Trace; Hypochromasia Trace; Macrocytosis 1+; Platelet Estimate Increased (Normal); Stomatocytes Trace; Target Cells Trace
[2022-01-22 10:45] VITALS: BP 153/84; PULSE 73; RESP 18; TEMP 37.1; O2SAT 97
[2022-01-22 10:53] LABS: Hemoglobin 9.1 g/dL (11.5-15.3); Nucleated Red Blood Cells % 0 %
[2022-01-22 10:56] LABS: Basophils # 0.1 10^3/uL (0.0-0.1); Basophils % 0.6 %; Eosinophils # 0.5 10^3/uL (0.0-0.8); Eosinophils % 2.7 %; Hematocrit 29.7 % (37.0-47.0); Lymphocytes # 8.4 10^3/uL (0.8-4.8); Lymphocytes % 44.6 %; Mean Corpuscular HGB Conc 30.6 g/dL (30.0-36.0); Mean Platelet Volume 10.8 fL (7.4-10.4); Monocytes # 0.7 10^3/uL (0.2-0.9); Monocytes % 3.5 %; Neutrophils # 9.09 10^3/uL (1.8-7.7); Neutrophils % 48.2 %; Platelet Count 433 10^3/cmm (130-400); Red Blood Count 3.03 10^6/uL (4.1-5.3); Red Cell Distribution Width 21.5 % (12.1-15.1); White Blood Count 18.9 10^3/uL (4.0-10.0)
[2022-01-22 11:11] LABS: Slide Review Slide Review Perform
[2022-01-22 11:43] LABS: Alanine Aminotransferase 74 U/L (0-33); Alkaline Phosphatase 650 IU/L (35-105); Anion Gap 13.1 (5-19); Aspartate Amino Transferase 32 U/L (0-32); Blood Urea Nitrogen 16 mg/dL (8-23); Calcium 8.7 mg/dL (8.5-10.5); Carbon Dioxide 25 mmol/L (22-29); Chloride 107 mmol/L (98-107); Globulin 3.2 g/dL (1.3-4.6); Glomerular Filtration Rate 72.9 mL/min (90-130); Glucose 67 mg/dL (65-115); Osmolality Calculated 291 mOsm/kg (285-295); Potassium 4.1 mmol/L (3.5-5.1); Sodium 141 mmol/L (136-145); Total Bilirubin 0.5 mg/dL (0.15-1.2); Total Protein 6.2 g/dL (6.6-8.7)
[2022-01-25 09:50] VITALS: BP 154/84; PULSE 87; RESP 18; TEMP 36.4; O2SAT 98
[2022-01-25 10:13] LABS: Hematocrit 32.2 % (37.0-47.0); Hemoglobin 9.9 g/dL (11.5-15.3); Mean Corpuscular HGB Conc 30.7 g/dL (30.0-36.0); Mean Corpuscular Hemoglobin 30.6 pg (28.0-34.0); Mean Corpuscular Volume 99.4 fl (81-99); Mean Platelet Volume 10.5 fL (7.4-10.4); Platelet Count 392 10^3/cmm (130-400); Red Blood Count 3.24 10^6/uL (4.1-5.3); Red Cell Distribution Width 20.8 % (12.1-15.1); White Blood Count 13.5 10^3/uL (4.0-10.0)
[2022-01-25 10:29] LABS: Alanine Aminotransferase 55 U/L (0-33); Albumin Level 3.3 g/dL (3.5-5.2); Alkaline Phosphatase 607 IU/L (35-105); Anion Gap 11.7 (5-19); Aspartate Amino Transferase 27 U/L (0-32); Blood Urea Nitrogen 13 mg/dL (8-23); Calcium 8.5 mg/dL (8.5-10.5); Carbon Dioxide 25 mmol/L (22-29); Chloride 109 mmol/L (98-107); Glomerular Filtration Rate 101.6 mL/min (90-130); Glucose 111 mg/dL (65-115); Osmolality Calculated 295 mOsm/kg (285-295); Potassium 3.7 mmol/L (3.5-5.1); Sodium 142 mmol/L (136-145); Total Bilirubin 0.5 mg/dL (0.15-1.2); Total Protein 6.3 g/dL (6.6-8.7)
[2022-01-25 12:28] LABS: Total Cells Counted 100 (0-100)
[2022-01-25 12:29] LABS: Absolute Eosinophils 0.9 10^3/cmm (0.0-0.7); Absolute Neutrophil 6.9 10^3/cmm (1.4-6.5); Absolute Segmented Neutrophil 6.9 10/cmm (1.6-7.1); Anisocytosis 2+; Eosinophils 7 %; Giant Platelets Trace; Hypochromasia Trace; Lymphocytes 24 %; Lymphocytes Absolute 4.1 10^3/cmm (1.2-3.4); Macrocytosis 1+; Microcytosis Trace; Monocytes Absolute 1.6 10^3/cmm (0.1-0.6); Ovalocytes Trace; Platelet Estimate Normal (Normal); Segmented Neutrophils 51 %; Stomatocytes Trace; Target Cells Trace
[2022-01-25 12:30] LABS: Acanthocytes Trace
== END 2022-02-04 23:59 | disposition home or self-care (01) ==
LOC: GILAB 09:48
PROVIDERS: Clinical Nurse Specialist Adult Health; PCP Family Medicine; Visit Provider Family Medicine
DX: B25.9 Cytomegaloviral disease, unspecified (principal); Z51.81 Encounter for therapeutic drug level monitoring
CPT/HCPCS: 36592; 36593; 80053; 85007; 85025; 85027

== ENCOUNTER → 2022-02-03 12:12 | Outpatient (BNVA) | payer OTHER, SELFPAY | PROVIDERS: PCP Family Medicine; Visit Provider Family Medicine | DX: B25.9 Cytomegaloviral disease, unspecified (principal); Z51.81 Encounter for therapeutic drug level monitoring | CPT/HCPCS: 80053; 85025; 86140 ==

== ENCOUNTER → 2022-02-19 08:10 | Outpatient (BNVA) | payer OTHER, SELFPAY | PROVIDERS: PCP Family Medicine; Visit Provider Family Medicine | DX: D35.00 Benign neoplasm of unspecified adrenal gland (principal) | CPT/HCPCS: 82533 ==

== ENCOUNTER → 2022-12-27 14:06 | Outpatient (BNVA) | payer MEDICARE, SELFPAY | PROVIDERS: PCP Family Medicine; Visit Provider Podiatrist Foot & Ankle Surgery | DX: Q82.8 Other specified congenital malformations of skin (principal); M20.42 Other hammer toe(s) (acquired), left foot; M21.612 Bunion of left foot | CPT/HCPCS: 17110; 73630; 99203 ==

== ENCOUNTER → 2023-01-20 13:14 | Outpatient (BNVA) | payer MEDICARE, SELFPAY | PROVIDERS: PCP Family Medicine; Visit Provider Family Medicine | DX: E78.2 Mixed hyperlipidemia (principal); I10 Essential (primary) hypertension; Z51.81 Encounter for therapeutic drug level monitoring; Z13.220 Encounter for screening for lipoid disorders | CPT/HCPCS: 80053; 80061; 81000; 85007; 85025 ==

== ENCOUNTER 2023-02-02 09:51 | Outpatient (CLI) | payer MEDICARE, SELFPAY ==
--- NOTE | 2023-02-02 09:56 | MM_ITS ---
WS: [id number] BILATERAL SCREENING DIGITAL TOMOSYNTHESIS MAMMOGRAM WITH CAD HISTORY: SCREENING COMPARISON: 12/23/2011 Bilateral CC and MLO views with tomosynthesis and synthetic mammography submitted. Computer aided det ection analyzed. Breast composition: There are scattered areas of fibroglandular density. No suspicious masses, microc alcifications or architectural distortion. MM/[place] [id number] IMPRESSION: BI-RADS: 1-Negative FOLLOW UP: 1 Year Follow-up
== END 2023-02-02 09:52 | disposition home or self-care (01) ==
PROVIDERS: PCP Family Medicine; Visit Provider Family Medicine
DX: Z12.31 Encounter for screening mammogram for malignant neoplasm of breast (principal)
CPT/HCPCS: 77063; 77067

== ENCOUNTER → 2023-02-14 14:37 | Outpatient (BNVA) | payer MEDICARE, SELFPAY | PROVIDERS: PCP Family Medicine; Visit Provider Podiatrist Foot & Ankle Surgery | DX: Q82.8 Other specified congenital malformations of skin (principal); M20.42 Other hammer toe(s) (acquired), left foot; M21.612 Bunion of left foot | CPT/HCPCS: 17110 ==

== ENCOUNTER 2023-02-24 07:26 | Outpatient (CLI) | payer MEDICARE, SELFPAY ==
[2023-02-24] MEDS: iohexol 350 mg/mL 500 mL Btl (per mL) PO (07:53)
[2023-02-24] MEDS: iohexol 350 mg/mL 500 mL Btl (per mL) IV (07:53)
--- NOTE | 2023-02-24 08:30 | CT_ITS ---
WS: [id number] CT ABDOMEN AND PELVIS WITH CONTRAST HISTORY: Abdominal pain, elevated alk phos TECHNIQUE: Imaging performed of the abdomen and pelvis with IV contrast. Single phase imaging of the abdomen. Coronal and sagittal reformats are submitted. All CT scans at [facility] use at [address] one of these dose optimization techniques: automated exposure control; mA and/or kV adjustment per patient size (includes targeted exams where dose is matched to clinical indication); or iterative re construction. IV CONTRAST: Omnipaque 350; 100 mL IV. Oral contrast: Yes. DLP: 874.63 mGy.cm COMPARISON: 12/26/2021 Lower thorax: Calcification medial RIGHT lower lobe. Heart is normal size. No hiatal hernia. Liver/biliary system: Normal size with no intrahepatic dilatation. Gallbladder: Normally distended gallbladder with stones. Pancreas: Mild diffuse pancreatic atrophy. No pancreatic duct dilatation. Spleen: Prior splenectomy. Adrenal glands: Stable 12 mm nodule RIGHT adrenal gland. Normal LEFT adrenal gland. Right kidney: Normal. Left kidney: There are a few too small to characterize hypodensities. No obstruction. Aorta: Mild atherosclerosis with no aneurysm. Lymphadenopathy: There are a few lymph nodes which are not significantly enlarged but the numbers inc rease in the GE junction and around the celiac axis. Largest lymph node measures 12 mm posterior to t he portal vein. Free fluid: None. GI tract: There is marked wall thickening involving the stomach. Greatest involving the body of the s tomach including the greater curvature and antrum. Diffuse moderate constipation. Appendix is normal. Abdominal wall: Unremarkable abdominal wall. No hernia. Pelvis: Prior hysterectomy. RIGHT adnexal cyst measures 3.3 x 3.0 cm. Nondistended urinary bladder. Bones: Increase in lumbar lordosis. CT/CT abdomen pelvis w con* [id number] IMPRESSION: 1. There is significant gastric wall thickening which will need to be further evaluated by endoscopy. Gastritis versus neoplasm. 2. There are several small lymph nodes surrounding the celiac axis and posteri or to the portal vein which may be reactive or neoplastic. 3. No ascites. 4. Constipation. Normal appendix. 5. Cholelithiasis without acute cholecystitis. 6. Splenectomy.
== END 2023-02-24 07:27 | disposition home or self-care (01) ==
LOC: RAD 07:28
PROVIDERS: PCP Family Medicine; Visit Provider Family Medicine
DX: R10.9 Unspecified abdominal pain (principal); R74.8 Abnormal levels of other serum enzymes; R93.3 Abnormal findings on diagnostic imaging of other parts of digestive tract; K59.00 Constipation, unspecified; K80.20 Calculus of gallbladder without cholecystitis without obstruction; Z90.81 Acquired absence of spleen
CPT/HCPCS: 74177; Q9967

== ENCOUNTER → 2023-03-03 10:03 | Outpatient (BNVA) | payer MEDICARE, SELFPAY | PROVIDERS: PCP Family Medicine; Visit Provider Surgery | DX: Z12.11 Encounter for screening for malignant neoplasm of colon (principal) | CPT/HCPCS: 99024; 99202 ==

== ENCOUNTER 2023-03-24 10:05 | Day surgery (SDC) | payer MEDICARE, SELFPAY ==
[2023-03-22 09:43] VITALS: BMI 37.5
[2023-03-24 10:20] VITALS: BP 159/90; PULSE 90; RESP 16; TEMP 36.8; O2SAT 97
[2023-03-24] MEDS: sodium chloride 0.9% 1,000 ML 30 ML IV (10:24)
--- NOTE | 2023-03-24 10:31 | P.ANESASSM_ITS ---
Pre-Anesthetic Assessment Height/Weight: Height 1.65 m Weight 102.512 kg Temp Pulse Resp BP Pulse Ox O2 Del Method 98.2 F 90 16 159/90 97 Room Air 03/24/23 10:20 03/24/23 10:20 03/24/23 10:20 03/24/23 10:20 03/24/23 10:20 03/24/23 10:20 Preop Diagnosis: Colon cancer screening Operation Date: 03/24/23 11:10 Proposed Procedures p Colonoscopy 87709,Z12.11(Not Applicable) - Fabrizio Serra MD s EGD [id number](Not Applicable) - Fabrizio Serra MD Familial anesthetic complications: none Was Beta Luis F taken within 24 hours: N/A Was Clonidine taken within 24 hours: N/A Last intake: Intake Last Liquid Date 03/23/23 Last Liquid Time 22:00 Last Solid Date 03/22/23 Last Solid Time 18:00 Social No alcohol and No tobacco Exam alert and oriented x 3 Airway Submandibular: within normal limits Cervical ROM: within normal limits Mallampati: Class II Dentition: full Pulmonary None reported CV/HEM Deep Vein Thrombosis (right arm- no longer on blood thinners) and Hypertension None reported Hepatic None reported GI Gastroesophageal Reflux Disease Metabolic Hyperlipidemia and Morbid Obesity [facility] None reported Neuropsych Cerebrovascular Accident (2020- cognitive deficits, uses cane occasionally) Anesthetic Plan ASA status: 3 Anesthesia: Anesthesia Evaluation, General and MAC Risk of > 500 ml blood loss (7ml/kg in children): No Medications/Allergies Home Medications Medication Instructions Recorded Confirmed Last Taken Type aspirin 325 mg tablet 325 mg PO DAILY 03/03/20 03/24/23 03/20/23 History loratadine 10 mg tablet 10 mg PO DAILY 03/03/20 03/24/23 03/24/23 History omeprazole 20 mg capsule,delayed 20 mg PO DAILY 03/03/20 03/24/23 03/24/23 History release atorvastatin 20 mg tablet 20 mg PO DAILY #30 tabs 02/09/23 03/24/23 03/24/23 Rx bupropion HCl 100 mg tablet 150 mg PO QAM 30 days #45 tabs 03/12/23 03/24/23 03/24/23 Rx citalopram 40 mg tablet 40 mg PO DAILY 30 days #30 tabs 08/12/2803/24/23 03/24/23 Rx lisinopril 10 mg tablet 10 mg PO DAILY 03/22/23 03/24/23 03/24/23 History Allergies Allergy/AdvReac Type Severity Reaction Status Date / Time Sulfa (Sulfonamide Allergy HIVES Verified 03/22/23 09:40 Antibiotics) nitrofurantoin AdvReac SHORTNESS Verified 03/22/23 09:40 [From Macrobid] OF BREATH Current Medications Generic Name Dose Route Start Last Admin Trade Name Freq PRN Reason Stop Dose Admin Sodium Chloride 1,000 mls @ 30 mls/hr 03/24/23 10:15 03/24/23 10:24 Sodium Chloride 0.9% IV 30 mls/hr .Q24H LEO Administration PFSH Anesthesia Medical History Anxiety History of CVA (cerebrovascular accident) Left Frontoparietal - 12/2019 - Affected memory and math History of diverticulitis History of DVT (deep vein thrombosis) History of hiatal hernia History of TIA (transient ischemic attack) Hypertension 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) Psychiatric care Surgical History (Updated 03/03/23 @ 10:16 by Monique Rincon) History of delivery 1994 History of hysteroscopy 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 Hx of hysterectomy 03/2017 - No cancer Family History (Updated 03/03/23 @ 10:29 by ROXANNA Watson) Father Glaucoma Sister Morquio syndrome Connective tissue disease without genetic confirmation Brother CAD (coronary artery disease), Onset Age: 48 at age 48 with heart issues/electrolyte issues Unknown Cancer colon cancer Social History Smoking and tobacco status: former smoker Quit status (tobacco): has quit using tobacco Alcohol intake: never Substance/Drug Use: never Data Anesthesia Cardiac Studies: Echocardiogram Ultrasound 12/17/19 Transesophageal Echocardiogram 07/24/20 Holter Monitor 07/08/20
--- NOTE | 2023-03-24 10:58 | W.PM.OPSUD ---
Surgery/Procedure H&P Update DATE OF PROCEDURE: March 24, 2023 DATE H&P PERFORMED: 03/03/23 H&P UPDATE INFORMATION: I have reviewed H&P completed within last 30 days, I have examined patient prior to procedure, No changes to prior documentation, Changes to prior documentation as noted here and H&P is in [facility] EMR on date indicated CHANGES TO PREVIOUS DOCUMENTATION: Patient had CT showing stomach wall thickening. We have added EGD to thie evaluations. all risk and benefits have been discussed PREOP DIAGNOSIS: Colon cancer screening PLANNED PROCEDURE: Operation Date: 03/24/23 11:10 Proposed Procedures p Colonoscopy 49453,Z12.11(Not Applicable) - Fabrizio Serra MD s EGD [id number](Not Applicable) - Fabrizio Serra MD
[2023-03-24 12:12] VITALS: BP 138/82; PULSE 75; RESP 16; O2SAT 98
[2023-03-24 12:23] VITALS: BP 140/73; PULSE 75; RESP 18; O2SAT 98
[2023-03-24 12:34] VITALS: BP 118/75; PULSE 73; RESP 18; O2SAT 99
--- NOTE | 2023-03-24 12:54 | ANE.PACU2 ---
Inpatient post-anesthesia follow up: Airway intact: Yes Vital signs: Temperature 98.2 F Pulse Rate 73 Respiratory Rate 18 Blood Pressure 118/75 Pulse Oximetry 99 Oxygen Delivery Me thod Room Air Oxygen Flow Rate Fraction of Inspir ed Oxygen Hydration adequate: Yes Nausea and vomiting: No Pain level: 1 Mental status: Baseline
== END 2023-03-24 12:46 | disposition home or self-care (01) ==
PROVIDERS: PCP Family Medicine; Visit Provider Surgery
PROC: 0DJD8ZZ Inspection of Lower Intestinal Tract, Via Natural or Artificial Opening Endoscopic (ICD-10-PCS; CPT 45378; principal; 2023-03-24 11:10)
PROC: 0DJ08ZZ Inspection of Upper Intestinal Tract, Via Natural or Artificial Opening Endoscopic (ICD-10-PCS; CPT 43235; 2023-03-24 11:10)
DX: Z86.010 Personal history of colon polyps (principal); K29.50 Unspecified chronic gastritis without bleeding; D12.6 Benign neoplasm of colon, unspecified; Z86.718 Personal history of other venous thrombosis and embolism; K21.9 Gastro-esophageal reflux disease without esophagitis; E78.5 Hyperlipidemia, unspecified; E66.01 Morbid (severe) obesity due to excess calories; Z68.37 Body mass index [BMI] 37.0-37.9, adult; Z79.82 Long term (current) use of aspirin; Z12.11 Encounter for screening for malignant neoplasm of colon; K44.9 Diaphragmatic hernia without obstruction or gangrene
CPT/HCPCS: 43239; 45380; 88305; J2704; J3010; J7030

== ENCOUNTER → 2023-04-07 14:05 | Outpatient (BNVA) | payer MEDICARE, SELFPAY | PROVIDERS: PCP Family Medicine; Visit Provider Surgery | DX: Z09 Encounter for follow-up examination after completed treatment for conditions other than malignant neoplasm (principal) | CPT/HCPCS: 99213 ==

== ENCOUNTER → 2023-05-16 10:00 | Outpatient (BNVA) | payer MEDICARE, SELFPAY | PROVIDERS: PCP Family Medicine; Visit Provider Podiatrist Foot & Ankle Surgery | DX: Q82.8 Other specified congenital malformations of skin (principal); M20.42 Other hammer toe(s) (acquired), left foot; M21.612 Bunion of left foot | CPT/HCPCS: 17110 ==

== ENCOUNTER 2023-07-21 18:10 | Inpatient (IN) | payer MEDICARE, SELFPAY ==
[2023-07-21 18:21] VITALS: BP 158/81; PULSE 97; RESP 16; TEMP 38.1; O2SAT 94; BMI 34.9
--- NOTE | 2023-07-21 19:35 | XRR_ITS ---
PROCEDURE INFORMATION: Exam: XR Chest Exam date and time: 07/21/2023 7:39 PM Age: 62 years old Clinical indication: Cough and other: Congestion; Patient HX: PT arrive pov with C/O increase lethargy, decreased appetite, and cold symptoms. PT stated she had a splenectomy in 2020. PT stated she had cmv in December of 2021 and was hospitalized. PT stated she has had this cold and has been taking cold medicine since 07/12 with no improvement. PT stated she has lost 6lbs in the last two days and today her daughter stated everytime she entered the room she had fallen asleep. ; Additional info: Cough, congestion TECHNIQUE: Imaging protocol: Radiologic exam of the chest. Views: 1 view. COMPARISON: CT chest con [id number] 12/27/2021 1:03 PM FINDINGS: Lungs: Unremarkable. No consolidation. Pleural spaces: Unremarkable. No pleural effusion. No pneumothorax. Heart/Mediastinum: Subtle rounded opacity projecting through the left heart shadow which was not present on the prior chest radiograph. Bones/joints: Unremarkable. XR/XR chest 1V portable [id number] IMPRESSION: Subtle rounded opacity projecting through the left heart shadow which was not present on the prior chest radiograph. While this may represent artifact, a true retro cardiac lesion can not be excluded and a chest CT with contrast may be of benefit to exclude an underlying lesion.
--- NOTE | 2023-07-21 19:37 | W.ED.GENADLT ---
HPI - General Adult General: Chief complaint: General Medical Stated complaint: congestion, no spleen , weak, week not better Time Seen by Provider: 07/21/23 19:00 History of Present Illness: 62-year-old female presents emergency department with her daughter. Daughter states she has had increased lethargy decreased appetite and cold-like symptoms for almost 1 month. She states she had a splenectomy in 2020 and has had CMV infection in 2021. Patient states that she is continued to become increasingly fatigued with subjective fever and malaise worse over the previous 2 days. She states she is unable to eat or keep anything down although she denies nausea or vomiting. 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 Hx of hysterectomy 03/2017 - No cancer History of delivery 1994 History of hysteroscopy Family History Father Glaucoma Sister Morquio syndrome Connective tissue disease without genetic confirmation Brother CAD (coronary artery disease), Onset Age: 48 at age 48 with heart issues/electrolyte issues Unknown Cancer colon cancer Social History Smoking and tobacco/nicotine status: former use of tobacco/nicotine Quit status (tobacco/nicotine): has quit using Alcohol intake: never Substance/Drug Use: never Physical Exam Narrative: EXAM NARRATIVE: Constitutional: the patient appears well nourished and with normal development. Vital signs reviewed as documented. HENMT: Normocephalic, atraumatic. Extermal ears with normal appearance without drainage. Nose without drainage, normal appearance. Mucus membranes moist. Neck is supple, No jugular venous distension, trachea is midline, no appreciable carotid bruits. No lymphadenopathy. No meningeal signs. Flexion, extension and lateral rotation is without pain. Eyes: Pupils are equal, round, reactive to light and accommodation. No scleral icterus. Extra-ocular movement are intact. Thorax is symmetrical and with equal rise and fall with respirations. Resp: Lungs are clear to auscultation. No wheezes, rales, crackles or ronchi at present. Cardio: Regular rate and rhythm. Positive S1, S2. No appreciable murmurs, rubs or gallops. GI: Abdominal exam reveals normal bowel sounds to all quadrants. No organomegaly. No obvious palpable masses noted. No hepatomegally appreciated. Soft, nontender to palpation. Extremity: Extremities are non-edematous and both femoral and pedal pulses are 2+ and equal bilaterally. Moves all extremities well, sensation in all extremities. Neuro: Alert and oriented x4, person, place, time and situation. Cranial nerves II through XII are grossly intact, there is no focal neurological deficits that I can appreciate at present. Motor strength in the upper and lower extremities are equal and bilateral 5/5. Psych: Cooperative, calm, normal thought process, appropriate judgment. Skin: No lesions, rashes. No gross abnormalities noted. Back: Symmetrical, no obvious deformity, No CVA tenderness Course Vital Signs: Vital signs: Vital Signs Temperature 97.6 F 07/26/23 04:34 Pulse Rate 84 07/26/23 12:19 Respiratory Rate 18 07/26/23 12:19 Blood Pressure 129/84 07/26/23 12:19 Pulse Oximetry 93 07/26/23 12:19 Oxygen Delivery Me thod Room Air 07/26/23 11:44 MDM - General Adult Medical Decision Making Physical exam completed and documented I will obtain a CBC, CMP chest x-ray CT scan of the chest blood cultures and provide antibiotics and admit for additional evaluation treatment and care. Differential Diagnosis Viral illness, pneumonia, CHF, Medical Records I reviewed the patient's medical records. Lab Data 07/26/23 04:31 07/26/23 04:31 Radiology Impressions Chest X-Ray 07/21/23 19:35 IMPRESSION: Subtle rounded opacity projecting through the left heart shadow which was not present on the prior chest radiograph. While this may represent artifact, a true retro cardiac lesion can not be excluded and a chest CT with contrast may be of benefit to exclude an underlying lesion. Chest CT 07/21/23 21:48 IMPRESSION: Tree-in-bud opacities in the periphery of the left upper lobe, left lower lobe and to a lesser extent the medial aspect of the right lower lobe. While nonspecific this can be seen the setting of infectious process. Laboratory Results WBC 28.79 10^3/uL (3.29-11.43) H 07/21/23 20:00 RBC 5.29 10^6/uL (3.85-5.65) 07/21/23 20:00 Hgb 14.90 g/dL (11.27-16.99) 07/21/23 20:00 Hct 46.9 % (36-47) 07/21/23 20:00 MCV 88.7 fl (85-98) 07/21/23 20:00 MCH 28.2 pg (27-33) 07/21/23 20:00 MCHC 31.8 g/dL (30-55) 07/21/23 20:00 RDW 14.0 % (12.1-15.1) 07/21/23 20:00 Plt Count 484 10^3/cmm (157-399) H 07/21/23 20:00 MPV 10.1 fL (7.4-10.4) 07/21/23 20:00 Neut % (Auto) 67.0 % 07/21/23 20:00 Lymph % (Auto) 22.8 % 07/21/23 20:00 [place] % (Auto) 8.9 % 07/21/23 20:00 Eos % (Auto) 0.1 % 07/21/23 20:00 Baso % (Auto) 0.5 % 07/21/23 20:00 Neut # (Auto) 19.31 10^3/uL (1.8-7.7) H 07/21/23 20:00 Lymph # (Auto) 6.6 10^3/uL (0.8-4.8) H 07/21/23 20:00 [place] # (Auto) 2.6 10^3/uL (0.2-0.9) H 07/21/23 20:00 Eos # (Auto) 0.0 10^3/uL (0.0-0.8) 07/21/23 20:00 Baso # (Auto) 0.1 10^3/uL (0.0-0.1) 07/21/23 20:00 Nucleated RBC % (auto) 0 % 07/21/23 20:00 Nucleated RBCs # 0.0 /100WBC 07/21/23 20:00 PT 13.70 SECONDS (12.1-14.9) 07/21/23 20:00 INR 1.02 (0.8-1.2) 07/21/23 20:00 APTT 34.2 SECONDS (23.9-36.7) 07/21/23 20:00 D-Dimer 0.52 ug/mLFEU (0-0.59) 07/21/23 23:20 Sodium 135 mmol/L (136-145) L 07/21/23 20:00 Potassium 4.3 mmol/L (3.5-5.1) 07/21/23 20:00 Chloride 100 mmol/L (98-107) 07/21/23 20:00 Carbon Dioxide 22 mmol/L (22-29) 07/21/23 20:00 Anion Gap 17.3 (5-19) 07/21/23 20:00 BUN 14 mg/dL (8-23) 07/21/23 20:00 Creatinine 0.7 mg/dL (0.5-0.9) 07/21/23 20:00 GFR Calculation 84.8 mL/min (90-130) L 07/21/23 20:00 Glucose 85 mg/dL (65-115) 07/21/23 20:00 Calculated Osmolality 280 mOsm/kg (285-295) L 07/21/23 20:00 Lactic Acid 2.3 mmol/L (0.5-2.2) H 07/21/23 20:00 Lactic Acid (Sepsis) 1.0 mmol/L (0.5-2.2) 07/21/23 22:38 Calcium 9.2 mg/dL (8.5-10.5) 07/21/23 20:00 Total Bilirubin 0.8 mg/dL (0.15-1.2) 07/21/23 20:00 AST 38 U/L (0-32) H 07/21/23 20:00 ALT 32 U/L (0-33) 07/21/23 20:00 Alkaline Phosphatase 678 U/L (35-105) H 07/21/23 20:00 NT-Pro-B Natriuret Pep 562 pg/mL (0-125) H 07/21/23 20:00 Total Protein 8.2 g/dL (6.6-8.7) 07/21/23 20:00 Albumin 3.6 g/dL (3.5-5.2) 07/21/23 20:00 Globulin 4.6 g/dL (1.3-4.6) 07/21/23 20:00 Procalcitonin 0.11 ng/mL (0-0.5) 07/21/23 23:20 Urine Color Yellow (Yellow) 07/21/23 20:53 Urine Appearance Clear (CLEAR) 07/21/23 20:53 Urine pH 6 (5-7) 07/21/23 20:53 Ur Specific [place] 1.020 (1.005-1.030) 07/21/23 20:53 Urine Protein Neg (Negative) 07/21/23 20:53 Urine Glucose (UA) Norm (Normal) 07/21/23 20:53 Urine Ketones Negative (Negative) 07/21/23 20:53 Urine Blood Neg (Negative) 07/21/23 20:53 Urine Nitrate Negative (Negative) 07/21/23 20:53 Urine Bilirubin 1+ (Negative) H 07/21/23 20:53 Urine Urobilinogen 4+ mg/dL (Negative) H 07/21/23 20:53 Ur Leukocyte Esterase Negative (Negative) 07/21/23 20:53 CMV IgG Ab >10.00 U/mL H 07/21/23 20:00 CMV IgM Ab 30.30 AU/mL H 07/21/23 20:00 Influenza Type A Ag negative (Negative) 07/21/23 20:18 Influenza Type B Ag negative (Negative) 07/21/23 20:18 SARS-CoV-2 Ag (Rapid) negative (Negative) 07/21/23 20:18 All radiology interpretation(s) finalized by discharge Discharge Plan Discharge Patient Disposition: Admitted As Inpatient Admit Provider: Halima James Clinical Impression: Pneumonia Condition: Stable Discharge Diet: Cardiac Discharge Activity: Resume usual activity Coding Level of Care Code ED Senior Resident Care Director for Chg Hector
[2023-07-21] MEDS: lactated ringers 1,000 ML 999 ML IV (20:15)
[2023-07-21 20:17] LABS: Basophils # 0.1 10^3/uL (0.0-0.1); Basophils % 0.5 %; Eosinophils % 0.1 %; Hematocrit 46.9 % (36-47); Lymphocytes # 6.6 10^3/uL (0.8-4.8); Lymphocytes % 22.8 %; Mean Corpuscular HGB Conc 31.8 g/dL (30-55); Mean Corpuscular Hemoglobin 28.2 pg (27-33); Mean Corpuscular Volume 88.7 fl (85-98); Mean Platelet Volume 10.1 fL (7.4-10.4); Monocytes # 2.6 10^3/uL (0.2-0.9); Monocytes % 8.9 %; Neutrophils # 19.31 10^3/uL (1.8-7.7); Nucleated Red Blood Cells % 0 %; Platelet Count 484 10^3/cmm (157-399); Red Blood Count 5.29 10^6/uL (3.85-5.65); White Blood Count 28.79 10^3/uL (3.29-11.43)
[2023-07-21 20:36] LABS: Lactic Sepsis W/Reflex 2.3 mmol/L (0.5-2.2)
[2023-07-21 20:39] LABS: INR 1.02 (0.8-1.2)
[2023-07-21 20:40] LABS: Partial Thromboplastin Time 34.2 SECONDS (23.9-36.7)
[2023-07-21 20:47] LABS: Slide Review Slide Review Perform
[2023-07-21 20:49] LABS: NT Pro B Type Natriuretic Pept 562 pg/mL (0-125); Procalcitonin 0.09 ng/mL (0-0.5)
[2023-07-21 20:57] LABS: Add Urine Microscopic? NO; Bilirubin Urine 1+ (Negative); Blood Urine Neg (Negative); Charge for UA Resulting for Rev; Glucose Urine UA Norm (Normal); Ketones Urine Negative (Negative); Leukocyte Esterase Urine Negative (Negative); Nitrate Urine Negative (Negative); Protein Urine Neg (Negative); Urine Appearance Clear (CLEAR); Urine Color Yellow (Yellow); Urobilinogen Urine 4+ mg/dL (Negative); pH Urine 6 (5-7)
[2023-07-21 21:01] LABS: Alanine Aminotransferase 32 U/L (0-33); Albumin Level 3.6 g/dL (3.5-5.2); Alkaline Phosphatase 678 U/L (35-105); Blood Urea Nitrogen 14 mg/dL (8-23); Calcium 9.2 mg/dL (8.5-10.5); Carbon Dioxide 22 mmol/L (22-29); Chloride 100 mmol/L (98-107); Globulin 4.6 g/dL (1.3-4.6); Glomerular Filtration Rate 84.8 mL/min (90-130); Glucose 85 mg/dL (65-115); Osmolality Calculated 280 mOsm/kg (285-295); Sodium 135 mmol/L (136-145); Total Bilirubin 0.8 mg/dL (0.15-1.2); Total Protein 8.2 g/dL (6.6-8.7)
[2023-07-21 21:04] LABS: Anion Gap 17.3 (5-19); Potassium 4.3 mmol/L (3.5-5.1)
[2023-07-21 21:05] LABS: Aspartate Amino Transferase 38 U/L (0-32)
[2023-07-21 21:07] LABS: Influenza A by IFA negative (Negative); Influenza B by IFA negative (Negative); SARS Covid-2 Antigen negative (Negative)
[2023-07-21 21:10] VITALS: BP 143/70; PULSE 90; O2SAT 96
--- NOTE | 2023-07-21 21:48 | CTR_ITS ---
PROCEDURE INFORMATION: Exam: CT Chest With Contrast; Diagnostic Exam date and time: 07/21/2023 10:05 PM Age: 62 years old Clinical indication: Cough and fever; Prior surgery; Surgery date: 6+ months; Surgery type: No spleen; Patient HX: Ex smoker; Additional info: Fever/cough TECHNIQUE: Imaging protocol: Diagnostic computed tomography of the chest with contrast. Radiation optimization: All CT scans at this facility use at least one of these dose optimization techniques: automated exposure control; mA and/or kV adjustment per patient size (includes targeted exams where dose is matched to clinical indication); or iterative reconstruction. Contrast material: OMNI 350; Contrast volume: 80 ml; Contrast route: INTRAVENOUS (IV); REPORTING DATA: Count of CT and Cardiac NM exams in prior 12 months: This patient has received [address] and 0 known cardiac nuclear medicine studies in the 12 months prior to the current study. COMPARISON: CT chest wo con [id number] 12/27/2021 1:03 PM RADIATION DOSE METRICS: Total DLP (mGy-cm): 708.22 FINDINGS: Lungs: Tree-in-bud opacities in the periphery of the left upper lobe, left lower lobe and to a lesser extent the medial aspect of the right lower lobe. While nonspecific this can be seen the setting of infectious process. Pleural spaces: Unremarkable. No pneumothorax. No pleural effusion. Heart: Severe mitral annular calcification. Lymph nodes: Calcified lymph nodes in the right and left hilar station and calcified granuloma in the right lower lobe consistent with prior granulomatous infection. Multiple prominent mediastinal lymph nodes measuring up to 12 mm in the precarinal station and 6 mm in the prevascular station which may be reactive in nature. Vasculature: Unremarkable. No aortic aneurysm. Liver: Multiple punctate calcifications throughout the liver consistent with prior granulomatous infection. Gallbladder and bile ducts: Multiple small calcified stones in the gallbladder. Spleen: The spleen is absent. Bones/joints: Unremarkable. No acute fracture. Soft tissues: See Lungs finding. CT/CT chest w con* [id number] IMPRESSION: Tree-in-bud opacities in the periphery of the left upper lobe, left lower lobe and to a lesser extent the medial aspect of the right lower lobe. While nonspecific this can be seen the setting of infectious process.
[2023-07-21 22:00] LABS: Reflex Lactate Order REFLEX LACTIC ORDERD
[2023-07-21] MEDS: iohexol 350 mg/mL 500 mL Btl (per mL) IV (22:15)
--- NOTE | 2023-07-21 22:51 | P.HP_ITS ---
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 Patient is stating that roughly 2 and half weeks ago she went to swim in an indoor pool at her sister's place with her 2 grandkids. Next day everyone was sick with nasal congestion, crusty eyes, cough. They are still recovering from the infection but Shelly has been getting worse, she is noticing fever at home with productive cough white sputum production with mucus, she noticed couple episodes of loose stool today, she is experiencing left-sided chest discomfort as well on deep inspiration. She does not have any history of coronary artery disease or CHF. In the ER she was diagnosed with sepsis, I have requested septic bolus, she received antibiotics, lactic acid is high along leukocytosis fever tachycardia tachypnea Repeat lactic acid has normalized, Her BNP is 562 CT chest showing tree-in-bud appearance I will start patient on anti-MRSA antipseudomonal double coverage Review of Systems 2 Const: Reports: fever(s), chills and body aches Eyes: Denies: change in vision ENMT: Denies: throat pain Card: Denies: chest pain Resp: Reports: dyspnea GI: Reports: diarrhea : Denies: flank pain Musc: Denies: neck pain Skin/Breast: Denies: rash Medications/Allergies Home Medications Medication Instructions Recorded Confirmed Last Taken Type aspirin 325 mg tablet 325 mg PO DAILY 03/03/20 06/27/23 03/20/23 History loratadine 10 mg tablet 10 mg PO DAILY 03/03/20 06/27/23 03/24/23 History omeprazole 20 mg capsule,delayed 20 mg PO DAILY 03/03/20 06/27/23 03/24/23 History release atorvastatin 20 mg tablet 20 mg PO DAILY #30 tabs 02/09/23 06/27/23 03/24/23 Rx bupropion HCl 100 mg tablet 150 mg (1.5 x 100 mg) PO QAM 30 03/12/23 06/27/23 03/24/23 Rx days #45 tabs citalopram 40 mg tablet 40 mg PO DAILY 30 days #30 tabs 03/12/23 06/27/23 03/24/23 Rx lisinopril 10 mg tablet See Rx Instructions .Route 04/26/23 06/27/23 Unknown Rx .COMPLEX #90 tabs Allergies Allergy/AdvReac Type Severity Reaction Status Date / Time Sulfa (Sulfonamide Allergy HIVES Verified 06/27/23 10:57 Antibiotics) nitrofurantoin AdvReac SHORTNESS Verified 06/27/23 10:57 [From Macrobid] OF BREATH PFSH Acute 2 PFSH: Medical History History of CVA (cerebrovascular accident) Left Frontoparietal - 12/2019 - Affected memory and math Psychiatric care Anxiety 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) History of hiatal hernia History of DVT (deep vein thrombosis) Hypertension History of diverticulitis History of TIA (transient ischemic attack) Surgical History 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 Hx of hysterectomy 03/2017 - No cancer History of delivery 1994 History of hysteroscopy Family History Father Glaucoma Sister Morquio syndrome Connective tissue disease without genetic confirmation Brother CAD (coronary artery disease), Onset Age: 48 at age 48 with heart issues/electrolyte issues Unknown Cancer colon cancer Social History Smoking and tobacco/nicotine status: former use of tobacco/nicotine Quit status (tobacco/nicotine): has quit using Alcohol intake: never Substance/Drug Use: never Vitals/I&O/Wt Last Vital Signs Temp 100.5 F H 07/21/23 18:21 Pulse 90 07/21/23 21:10 Resp 16 07/21/23 18:21 BP 143/70 07/21/23 21:10 Pulse Ox 96 07/21/23 21:10 O2 Del Method Room Air 07/21/23 18:21 Weight last 48 hrs Weight 98.089 kg Physical Exam 2 Narrative: Patient is awake and alert GCS 15 Febrile No signs of meningitis Hemodynamic stable Currently on room air Bilateral breath sounds No adventitious rhonchi or crackles Multiple psoriasis plaque on her lower extremities Clinically does not look fluid overloaded S1, S2 Abdomen soft Septic exam No encephalopathy skin mottling Data 07/21/23 20:00 07/21/23 20:00 Micro: Microbiology 07/21/23 20:04 Blood Culture - Preliminary Blood SPECIMEN COLLECTED 07/21/23 20:00 Blood Culture - Preliminary Blood SPECIMEN COLLECTED A&P Assessment and plan (1) Community acquired pneumonia: (2) Sepsis: Plan Sepsis related to community-acquired pneumonia Criteria met with tachypnea tachycardia fever leukocytosis high lactic acid No endorgan damage CT scan showing tree-in-bud appearance concerning community-acquired pneumonia Will give her anti-MRSA and double antipseudomonal coverage considering immunocompromise state Patient received 1 L in the ER I will give her 2 more liters which will be according to 30 mill per kilo Blood cultures taken, repeat lactic acid normalized Patient has high BNP no history of congestive heart failure Significant amount of fluid being given monitor closely for any signs of fluid overload Patient has history of psoriasis plaque no acute exacerbation Hypertension: Continue lisinopril Patient has history of CMV infection in the past, will request records from [facility] 2020 Full code Cardiac diet DVT prophylaxis added Attestations 2 Medical Necessity Statement*: Considering immunocompromise state and splenectomy I anticipate stay in the hospital for more than 2 midnights Diagnoses Community acquired pneumonia J18.9 Sepsis A41.9
[2023-07-21] MEDS: cefTRIAXone 2,000 MG in sodium chloride 0.9% (plus) 50 ML 100 MG IV (23:09)
[2023-07-21 23:46] LABS: D Dimer 0.52 ug/mLFEU (0-0.59)
[2023-07-21 23:57] LABS: Procalcitonin 0.11 ng/mL (0-0.5)
[2023-07-22] VITALS (11 sets, daily range): BP systolic 128–167; BP diastolic 72–82; PULSE 77–107; RESP 15–20; TEMP 36.4–37.9; O2SAT 94–97; BMI 34.8
--- NOTE | 2023-07-22 00:35 | USCV_ITS ---
Shelly Schilling Age: 62 Gender: F : 1960 Exam Date: 07/22/2023 02:02 Ordering Phys: Halima James MD Technologist: [place]am [place] [facility] [place]: fever 100.5F, malaise, chronic CMV infection s/p splenectomy. No history of cardiaac intervention per patient. BP: 167 / 74 HR: 99 Rhythm: Sinus Technical Quality: Suboptimal MEASUREMENTS (Male / Female) Normal Values 2D ECHO LV Diastolic Diameter PLAX 3.9 cm 4.2 - 5.9 / 3.9 - 5.3 cm LV Systolic Diameter PLAX 2.7 cm IVS Diastolic Thickness 0.9 cm 0.6 - 1.0 / 0.6 - 0.9 cm IVS Systolic Thickness 1.1 cm LVPW Diastolic Thickness 1.0 cm 0.6 - 1.0 / 0.6 - 0.9 cm LVPW Systolic Thickness 1.1 cm LVOT Diameter 1.7 cm LV Ejection Fraction 2D Teich 50.2 % LV Ejection Fraction MOD 2C 62.2 % LV Ejection Fraction 2C AL 61.8 % LA Diameter 5.0 cm LA Width 4.5 cm LA Height 7.0 cm RA Width 3.6 cm RA Height 3.9 cm Aorta at Sinotubular Diameter 2.4 cm IVC Diameter 1.2 cm M-MODE Aortic Annulus Diameter 3.1 cm LA Ao Ratio MM 1.6 DOPPLER AV Peak Velocity 198.3 cm/s LVOT Peak Velocity 111.0 cm/s AV Area Cont Eq vti 1.1 cm squared AV Area Cont Eq pk 1.2 cm squared MV Area PHT 5.0 cm squared Mitral E to A Ratio 0.9 MV E' Velocity 102.5 cm/s Mitral E to MV E' Ratio 21.4 Mitral E to LV E' Lateral Ratio 19.7 Mitral E to LV E' Septal Ratio 23.5 TR Peak Velocity 280.0 cm/s TR Peak Gradient 31.4 mmHg TV Peak E Velocity 119.0 cm/s Right Atrial Pressure 10.0 mmHg Pulmonary Artery Systolic Pressu 41.4 mmHg PV Peak Velocity 109.0 cm/s RV Acceleration Time 0.1 s RV Ejection Time 0.3 s RV AcT/ET 0.3 FINDINGS Left Ventricle Normal left ventricular size, systolic function and wall thickness, with no regional wall motion abnormalities. Grade I/IV diastolic dysfunction (abnormal relaxation filling pattern), normal to mildly elevated filling pressures. Left ventricular ejection fraction is estimated at 60 %. Right Ventricle Normal right ventricular size and systolic function. Mild pulmonary hypertension, RVSP 41.4 mmHg. Right Atrium The right atrium is normal in size. Left Atrium Mildly increased left atrial size. Mitral Valve Structurally normal mitral valve. Mild mitral annular calcification. Trace mitral valve regurgitation. Aortic Valve Mild aortic valve calcification. Structurally normal trileaflet aortic valve. No aortic valve stenosis. No aortic valve regurgitation. Tricuspid Valve Structurally normal tricuspid valve. Trace to mild tricuspid valve regurgitation. Pulmonic Valve Pulmonic valve not well visualized. Pericardium Normal pericardium without effusion. Aorta Normal ascending aorta dimension. IVC The inferior vena cava appears normal. CONCLUSIONS Normal left ventricular size, systolic function and wall thickness, with no regional wall motion abnormalities. Grade I/IV diastolic dysfunction (abnormal relaxation filling pattern), normal to mildly elevated filling pressures. Left ventricular ejection fraction is estimated at 60 %. Normal right ventricular size and systolic function. Mild pulmonary hypertension, RVSP 41.4 mmHg. Mildly increased left atrial size. Structurally normal mitral valve. Mild mitral annular calcification. Trace mitral valve regurgitation. When compared to the previous study done 12/17/2019 there does not appear to be any significant change. The aortic stenosis and moderate mitral regurgitation that were seen previously are not noted on today's examination. Dr. Venancio Woodson MD (Electronically Signed) Final Date: 22 July 2023 07:48 S
[2023-07-22] MEDS: heparin 5,000 unit/mL INJ 1 mL 5000 UNIT SUBCUT (02:06)
[2023-07-22] MEDS: vancomycin 1,500 MG/300 ML PIGGYBACK 200 MG IV ×2 (02:09→14:40)
[2023-07-22] MEDS: piperacillin-tazobactam 3.375 GM in sodium chloride 0.9% (plus) 50 ML IV ×2 (02:47→10:35)
[2023-07-22] MEDS: acetaminophen 500 mg Tablet PO ×2 (04:37→14:40)
[2023-07-22 05:19] LABS: Basophils # 0.2 10^3/uL (0.0-0.1); Basophils % 0.5 %; Hematocrit 41.7 % (36-47); Lymphocytes # 6.1 10^3/uL (0.8-4.8); Lymphocytes % 20.8 %; Mean Corpuscular HGB Conc 32.6 g/dL (30-55); Mean Corpuscular Hemoglobin 28.8 pg (27-33); Mean Corpuscular Volume 88.3 fl (85-98); Monocytes # 2.9 10^3/uL (0.2-0.9); Monocytes % 9.9 %; Neutrophils # 19.74 10^3/uL (1.8-7.7); Neutrophils % 67.6 %; Nucleated Red Blood Cells % 0 %; Platelet Count 447 10^3/cmm (157-399); Red Blood Count 4.72 10^6/uL (3.85-5.65); Red Cell Distribution Width 13.8 % (12.1-15.1); White Blood Count 29.21 10^3/uL (3.29-11.43)
[2023-07-22 05:40] LABS: Anion Gap 15.7 (5-19); Blood Urea Nitrogen 9 mg/dL (8-23); C Reactive Protein 90.3 mg/L (0.0-4.9); Carbon Dioxide 19 mmol/L (22-29); Chloride 106 mmol/L (98-107); Glomerular Filtration Rate 101.3 mL/min (90-130); Glucose 81 mg/dL (65-115); Lactate Dehydrogenase 171 U/L (135-214); Magnesium 1.6 mg/dL (1.7-2.3); Osmolality Calculated 282 mOsm/kg (285-295); Potassium 3.7 mmol/L (3.5-5.1); Sodium 137 mmol/L (136-145)
[2023-07-22] MEDS: FUROsemide 10 mg/mL SDV 2mL 20 MG IVP (08:23)
[2023-07-22] MEDS: citalopram 20 mg Tablet 40 MG PO (08:50)
[2023-07-22] MEDS: lisinopril 10 mg Tablet PO (08:50)
[2023-07-22] MEDS: cefepime 2,000 MG in sodium chloride 0.9% (plus) 50 ML 100 MG IV ×2 (08:50→20:15)
--- NOTE | 2023-07-22 08:57 | PC.CHAP ---
Pastoral Care Encounter/Spiritual Assessment Type of Contact [] Declined target trimmer visit [] Patient/Family/Request visit [] Outpatient visit [] Follow-up visit [] Physician referral [] Code/Alert [] Routine visit [] Staff referral [] Actively dying [] Patient sleeping [] Family support [] [] Out of room [] Palliative care [] [] Receiving care in room [] Pre-surgical visit [] Trauma [] Long length of stay [] ICU visit [] Other:Contact precautions. No visit. Relational/Emotional Strength [] Patient feels connected with others/family/visitors/staff [] Distress [] Loneliness/isolation [] Abandonment Spirituality of Patient [] Person of Rozina [] Attends Taoist of their Rozina [] Believes in Prayer [] Reads Bible or Rastafari materials [] There are Spiritual issues to be addressed Burlap Worker Interventions [] Prayer [] Active listening [] Non-anxious presence [] Spiritual/emotional support [] Crisis/trauma care [] Spiritual counseling [] Bereavement support [] Provided bereavement packet [] Provided Bible/devotional materials [] Provided toy/stuffed animal, coloring book to patient or family member [] Provided Communion [] Anointing/[place] [] Salvation [] Completed spiritual assessment [] Other: Impact on Illness or Injury [] Angry [] Fearful [] Anxious [] Often cries [] Exhaustion [] Unable to work [] Unable to attend faith [] Unable to walk/stand [] Unable to read [] Unable to drive [] Unable to eat/drink [] Unable to sleep [] Unable to be with family [] Patient intubated [] Other: Summary Time spent with patient
--- NOTE | 2023-07-22 11:08 | PC.SOCIAL ---
Pg 2 IMM Explained to pt Pg 2 IMM. No questions voiced. Provided pt a copy. Initialed, dated, & timed a copy & placed in chart.
--- NOTE | 2023-07-22 14:55 | P.PN_ITS ---
Subjective 2 Subjective: Tmax 100.5 overnight. States that she is feeling better today. Noted to have diffuse wheezing on exam. Vitals/I&O/Wt Last Vital Signs Temp 98.1 F 07/22/23 12:10 Pulse 88 07/22/23 12:10 Resp 15 07/22/23 12:10 BP 144/80 07/22/23 12:10 Pulse Ox 96 07/22/23 12:10 O2 Del Method Room Air 07/22/23 12:10 07/21/23 07/22/23 07/22/23 22:59 06:59 14:59 Intake Total 3115.602 / 3115.602 580 / 580 Output Total 700 / 700 Balance 2415.602 / 2415.602 580 / 580 Weight last 48 hrs Weight 97.976 kg Weight 97.976 kg Weight 98.089 kg Physical Exam 2 Narrative: General: No acute distress, AO x3 HEENT: PERRLA, pupils bilaterally equal and reactive, pallors not present Chest: Wheezing to auscultation bilaterally CVS: S1-S2 regular, no murmurs, no tachycardia, no gallops, no rubs Abdomen: Soft, nontender, no organomegaly, bowel sounds present Neuro: No focal deficits, no facial deformity, AO x3, power 5/5 in all limbs Data 07/22/23 05:03 07/22/23 05:03 Micro: Microbiology 07/22/23 03:00 Bacterial Antigens - Final Urine,Voided 07/21/23 20:04 Blood Culture - Preliminary Blood SPECIMEN COLLECTED 07/21/23 20:00 Blood Culture - Preliminary Blood SPECIMEN COLLECTED A&P Assessment and plan (1) Community acquired pneumonia: (2) Sepsis: Plan Sepsis related to community-acquired pneumonia Criteria met with tachypnea tachycardia fever leukocytosis high lactic acid No endorgan damage CT scan showing tree-in-bud appearance concerning community-acquired pneumonia Will give her anti-MRSA and double antipseudomonal coverage considering immunocompromise state Patient received 1 L in the ER I will give her 2 more liters which will be according to 30 mill per kilo Blood cultures taken, repeat lactic acid normalized Patient has high BNP no history of congestive heart failure Significant amount of fluid being given monitor closely for any signs of fluid overload Patient has history of psoriasis plaque no acute exacerbation Hypertension: Continue lisinopril Patient has history of CMV infection in the past, will request records from [facility] 2020 Full code Cardiac diet DVT prophylaxis added Plan for today 07/22/2023. Discontinue piperacillin/tazobactam. Continue cefepime and vancomycin. Await MRSA PCR. Add scheduled nebulization as concern for acute bronchitis which may be viral versus bacterial. Check respiratory viral panel. She has had multiple sick contacts at home. Hemodynamically stable. Review of past notes shows that patient has had a positive MICHAELA and positive anti-FUNERAL SALES MANAGER antibody. Will need rheumatology follow-up as outpatient. Concern for MCTD. Attestations 2 Medical Necessity Statement*: Continued need of IV antibiotics, scheduled nebulization, close monitoring given immunocompromise from splenectomy Coding Level of Care Code Acute Code for [facility] Diagnoses Community acquired pneumonia J18.9 Sepsis A41.9
[2023-07-22 19:14] LABS: Adenovirus Not Detected (NOT DETECT); Chlamydia Pneumoniae Not Detected (NOT DETECT); Coronavirus 229E,HKU1,NL63,OC4 Not Detected (NOT DETECT); Human Metapneumovirus Not Detected (NOT DETECT); Human Rhinovirus/Enterovirus Detected (NOT DETECT); Influenza A Not Detected (NOT DETECT); Influenza A H1 Not Detected (NOT DETECT); Influenza A H1-2009 Not Detected (NOT DETECT); Influenza A H3 Not Detected (NOT DETECT); Influenza B Not Detected (NOT DETECT); Mycoplasma Pneumoniae Not Detected (NOT DETECT); Parainfluenza Virus Type 1 Not Detected (NOT DETECT); Parainfluenza Virus Type 2 Not Detected (NOT DETECT); Parainfluenza Virus Type 3 Not Detected (NOT DETECT); Parainfluenza Virus Type 4 Not Detected (NOT DETECT); Respiratory Syncytial Virus A Not Detected (NOT DETECT); Respiratory Syncytial Virus B Not Detected (NOT DETECT); SARS-COV-2 Not Detected (NOT DETECT)
[2023-07-22] MEDS: atorvastatin 40 mg Tablet PO (20:15)
[2023-07-22] MEDS: ipratropium-albuterol 3 mL Neb INHALATION (20:45)
[2023-07-23] VITALS (11 sets, daily range): BP systolic 120–144; BP diastolic 72–80; PULSE 72–97; RESP 16–19; TEMP 36.6–37.3; O2SAT 91–98
[2023-07-23] MEDS: heparin 5,000 unit/mL INJ 1 mL 5000 UNIT SUBCUT ×2 (00:10→23:44)
[2023-07-23] MEDS: ipratropium-albuterol 3 mL Neb INHALATION ×4 (02:14→20:41)
[2023-07-23] MEDS: vancomycin 1,500 MG/300 ML PIGGYBACK 200 MG IV ×2 (02:35→14:46)
[2023-07-23] MEDS: lisinopril 10 mg Tablet PO (05:50)
[2023-07-23] MEDS: buPROPion SR (12 HR) 150 mg Tablet PO (05:50)
[2023-07-23] MEDS: aspirin 325 mg Tablet PO (05:50)
[2023-07-23] MEDS: pantoprazole DR 40 mg Tablet PO (05:50)
[2023-07-23 06:58] LABS: Basophils # 0.1 10^3/uL (0.0-0.1); Basophils % 0.6 %; Eosinophils # 0.3 10^3/uL (0.0-0.8); Eosinophils % 1.3 %; Hematocrit 43.6 % (36-47); Lymphocytes # 8.7 10^3/uL (0.8-4.8); Lymphocytes % 36.6 %; Mean Corpuscular HGB Conc 32.3 g/dL (30-55); Mean Corpuscular Hemoglobin 28.5 pg (27-33); Mean Corpuscular Volume 88.1 fl (85-98); Mean Platelet Volume 10.3 fL (7.4-10.4); Monocytes # 2.9 10^3/uL (0.2-0.9); Neutrophils # 11.72 10^3/uL (1.8-7.7); Neutrophils % 49.1 %; Nucleated Red Blood Cells % 0 %; Platelet Count 483 10^3/cmm (157-399); Red Blood Count 4.95 10^6/uL (3.85-5.65); Red Cell Distribution Width 13.9 % (12.1-15.1); White Blood Count 23.85 10^3/uL (3.29-11.43)
[2023-07-23 07:20] LABS: Alanine Aminotransferase 39 U/L (0-33); Albumin Level 3.1 g/dL (3.5-5.2); Alkaline Phosphatase 573 U/L (35-105); Anion Gap 17.4 (5-19); Aspartate Amino Transferase 43 U/L (0-32); Blood Urea Nitrogen 8 mg/dL (8-23); Carbon Dioxide 20 mmol/L (22-29); Chloride 105 mmol/L (98-107); Creatinine Clr Calc Pharmacy 137.7022; Glucose 72 mg/dL (65-115); Osmolality Calculated 285 mOsm/kg (285-295); Potassium 3.4 mmol/L (3.5-5.1); Sodium 139 mmol/L (136-145); Total Protein 7.1 g/dL (6.6-8.7)
[2023-07-23 07:30] LABS: Slide Review Slide Review Perform
[2023-07-23] MEDS: cefepime 2,000 MG in sodium chloride 0.9% (plus) 50 ML 100 MG IV ×2 (09:42→20:51)
[2023-07-23] MEDS: benzonatate 100 mg Capsule PO ×2 (15:45→22:46)
[2023-07-23] MEDS: budesonide 0.5 mg/2 mL Neb INHALATION (20:41)
[2023-07-23] MEDS: atorvastatin 40 mg Tablet PO (21:23)
[2023-07-23] MEDS: citalopram 20 mg Tablet 40 MG PO (21:23)
[2023-07-23] MEDS: acetaminophen-codeine 300-30mg Tablet 1 TAB PO (22:46)
--- NOTE | 2023-07-23 23:03 | PM.PN ---
Subjective Subjective: Afberile now over 24 hrs. leukocytsois at 23. Feels about the same. Still with wheezing and persisting bouts of cough leading to feeling sore. RVP + enetro/rhinovirus Medications: Reviewed: Yes Vitals/I&O/Wt Last Vital Signs Temp 99.0 F 07/23/23 20:00 Pulse 83 07/23/23 20:00 Resp 19 H 07/23/23 20:00 BP 139/80 07/23/23 20:00 Pulse Ox 97 07/23/23 20:00 O2 Del Method Room Air 07/23/23 20:00 07/23/23 07/23/23 07/24/23 14:59 22:59 06:59 Intake Total 530 / 530 830 / 1360 Output Total 550 / 550 Balance - 830 / 810 Weight last 48 hrs Weight 97.976 kg Weight 97.976 kg Weight 97.976 kg Physical Exam Narrative: General: No acute distress, AO x3 HEENT: PERRLA, pupils bilaterally equal and reactive, pallors not present Chest: Wheezing to auscultation bilaterally CVS: S1-S2 regular, no murmurs, no tachycardia, no gallops, no rubs Abdomen: Soft, nontender, no organomegaly, bowel sounds present Neuro: No focal deficits, no facial deformity, AO x3, power 5/5 in all limbs Data 07/24/23 01:30 07/24/23 01:30 Micro: Microbiology 07/23/23 09:50 Gram Stain - Final Sputum - Expectorated Sputum 07/21/23 20:04 Blood Culture - Preliminary Blood NEGATIVE TO DATE 07/21/23 20:00 Blood Culture - Preliminary Blood NEGATIVE TO DATE A&P Assessment and plan (1) Community acquired pneumonia: (2) Sepsis: Plan Sepsis related to community-acquired pneumonia Criteria met with tachypnea tachycardia fever leukocytosis high lactic acid No endorgan damage CT scan showing tree-in-bud appearance concerning community-acquired pneumonia Will give her anti-MRSA and double antipseudomonal coverage considering immunocompromise state Patient received 1 L in the ER I will give her 2 more liters which will be according to 30 mill per kilo Blood cultures taken, repeat lactic acid normalized Patient has high BNP no history of congestive heart failure Significant amount of fluid being given monitor closely for any signs of fluid overload Patient has history of psoriasis plaque no acute exacerbation Hypertension: Continue lisinopril Patient has history of CMV infection in the past, will request records from [place] 2020 Full code Cardiac diet DVT prophylaxis added Plan for today 07/22/2023. Discontinue piperacillin/tazobactam. Continue cefepime and vancomycin. Await MRSA PCR. Add scheduled nebulization as concern for acute bronchitis which may be viral versus bacterial. Check respiratory viral panel. She has had multiple sick contacts at home. Hemodynamically stable. Review of past notes shows that patient has had a positive MICHAELA and positive anti-FICTION AND NONFICTION WRITER PROSE antibody. Will need rheumatology follow-up as outpatient. Concern for MCTD. Plan for today 07/23/23 : Add budesonide inhalation. Continued wheezing- suspect acute bronchitis leading to curernt symptoms. RVP + enetro/rhinovirus. Continue iv abx. Add cough suppressant with codeine and prn tessalon pearls. Continue close monitoring given post splenectomy status. Leukocytosis at 23, patient clinically stable, may have persistent high counts given post splenectomy state Attestations Medical Necessity Statement*: add medications as above, optimize breathing status, continue iv abx Coding Level of Care Code Acute Code for Chg Fwd Diagnoses Community acquired pneumonia J18.9 Sepsis A41.9
[2023-07-24] VITALS (13 sets, daily range): BP systolic 113–148; BP diastolic 64–86; PULSE 76–94; RESP 14–20; TEMP 36.4–36.8; O2SAT 95–98
[2023-07-24] MEDS: vancomycin 1,500 MG/300 ML PIGGYBACK 200 MG IV (01:51)
[2023-07-24 02:22] LABS: Basophils # 0.1 10^3/uL (0.0-0.1); Basophils % 0.6 %; Eosinophils # 0.3 10^3/uL (0.0-0.8); Eosinophils % 1.3 %; Hematocrit 42.8 % (36-47); Lymphocytes # 7.7 10^3/uL (0.8-4.8); Mean Corpuscular HGB Conc 32.7 g/dL (30-55); Mean Corpuscular Hemoglobin 28.7 pg (27-33); Mean Corpuscular Volume 87.7 fl (85-98); Mean Platelet Volume 9.7 fL (7.4-10.4); Monocytes # 2.5 10^3/uL (0.2-0.9); Monocytes % 11.2 %; Neutrophils # 11.29 10^3/uL (1.8-7.7); Neutrophils % 51.4 %; Nucleated Red Blood Cells % 0 %; Platelet Count 496 10^3/cmm (157-399); Red Blood Count 4.88 10^6/uL (3.85-5.65); Red Cell Distribution Width 13.7 % (12.1-15.1); White Blood Count 21.96 10^3/uL (3.29-11.43)
[2023-07-24 02:32] LABS: Slide Review Slide Review Perform
[2023-07-24 02:40] LABS: Alanine Aminotransferase 42 U/L (0-33); Albumin Level 3.1 g/dL (3.5-5.2); Alkaline Phosphatase 566 U/L (35-105); Anion Gap 14.5 (5-19); Aspartate Amino Transferase 46 U/L (0-32); Blood Urea Nitrogen 8 mg/dL (8-23); Calcium 9.1 mg/dL (8.5-10.5); Carbon Dioxide 21 mmol/L (22-29); Chloride 105 mmol/L (98-107); Globulin 3.3 g/dL (1.3-4.6); Glomerular Filtration Rate 101.3 mL/min (90-130); Glucose 78 mg/dL (65-115); Osmolality Calculated 281 mOsm/kg (285-295); Potassium 3.5 mmol/L (3.5-5.1); Sodium 137 mmol/L (136-145); Total Bilirubin 0.7 mg/dL (0.15-1.2); Total Protein 6.4 g/dL (6.6-8.7)
[2023-07-24 02:44] LABS: Vancomycin Trough 33.9 ug/mL (10-15)
[2023-07-24] MEDS: ipratropium-albuterol 3 mL Neb INHALATION ×4 (03:11→21:19)
[2023-07-24] MEDS: pantoprazole DR 40 mg Tablet PO (06:04)
[2023-07-24] MEDS: aspirin 325 mg Tablet PO (06:04)
[2023-07-24] MEDS: lisinopril 10 mg Tablet PO (06:04)
[2023-07-24] MEDS: buPROPion SR (12 HR) 150 mg Tablet PO (06:04)
[2023-07-24] MEDS: cefepime 2,000 MG in sodium chloride 0.9% (plus) 50 ML 100 MG IV ×2 (08:33→20:30)
[2023-07-24] MEDS: benzonatate 100 mg Capsule PO ×2 (08:33→20:31)
[2023-07-24] MEDS: budesonide 0.5 mg/2 mL Neb INHALATION ×2 (10:13→21:18)
--- NOTE | 2023-07-24 17:11 | P.PN_ITS ---
Subjective 2 Subjective: Remains afebrile, hemodynamically stable. No new complaints. She thinks her breathing is improving but noted to have wheezing on exam left greater than right. Medications: Reviewed: Yes Vitals/I&O/Wt Last Vital Signs Temp 98.0 F 07/24/23 11:54 Pulse 88 07/24/23 16:20 Resp 16 07/24/23 16:10 BP 114/64 07/24/23 11:54 Pulse Ox 95 07/24/23 16:10 O2 Del Method Room Air 07/24/23 16:10 07/24/23 07/24/23 07/24/23 06:59 14:59 22:59 Intake Total 150 / 1510 530 / 530 Balance 150 / 960 530 / 530 Weight last 48 hrs Weight 100.244 kg Weight 97.976 kg Physical Exam 2 Narrative: General: No acute distress, AO x3 HEENT: PERRLA, pupils bilaterally equal and reactive, pallors not present Chest: Wheezing to auscultation bilaterally CVS: S1-S2 regular, no murmurs, no tachycardia, no gallops, no rubs Abdomen: Soft, nontender, no organomegaly, bowel sounds present Neuro: No focal deficits, no facial deformity, AO x3, power 5/5 in all limbs Data 07/24/23 01:30 07/24/23 01:30 Micro: Microbiology 07/23/23 09:50 Gram Stain - Final Sputum - Expectorated Sputum Sputum Culture - Preliminary Respiratory chalino thus far. [facility] [address] [place] [address] DR. JSOE LAUREANO, STE[employer] RULE DIE MAKER APPRENTICE NAME: Shelly Schilling LOC: [facility] #: [id number] AGE/SX: 62/F ROOM: 256 R E07/21/[address]: Micki Asher MD : 1960 BED: 2 D IS: FAX #: STATUS: ADM IN TLOC: Spec #: [id number] Ana: 07/22/23 Status: COMP Req #: [id number] Recd: 07/22/[address]: Halima James MD Src: URINE,VOID SpDesc: Ordered: Bacterial AG Procedure Result Verified Site Bacterial Antigen Final 07/22/23 Streptococcus Group B Negative for Streptococcus Group B Antigen Haemophilus influenzae B Negative or Haemophilus influenzae B Antigen S. pneumoniae Antigen Negative for S. pneumoniae Antigen N.meningitidis A,C,Y,W135 Negative for N.meningitidis A,C,Y,W135 Antigen N.meningitidis B/E.coli Negative for N.meningitidis B/E.coli K1 Antigen [facility] [address] [place] [id number] [address] JOSE LAUREANO, STE[employer] RULE DIE MAKER APPRENTICE NAME: Shelly Schilling LOC: [facility] U #: [id number] AGE/SX: 62/F ROOM: 256 R E07/21/[address]: Micki Asher MD : 1960 BED: 2 D IS: FAX #: STATUS: ADM IN TLOC: Spec #: [id number] Ana: 07/21/23 Status: RES Req #: [id number] Recd: 07/21/[address]: Blas Ledezma MD Src: Blood SpDesc: Ordered: Bcult Procedure Result Verified Site Blood Culture Preliminary 07/22/23 NEGATIVE TO DATE Blood Culture Preliminary (changed) 07/21/23 SPECIMEN COLLECTED A&P Assessment and plan (1) Community acquired pneumonia: (2) Sepsis: Plan Sepsis related to community-acquired pneumonia Criteria met with tachypnea tachycardia fever leukocytosis high lactic acid No endorgan damage CT scan showing tree-in-bud appearance concerning community-acquired pneumonia Will give her anti-MRSA and double antipseudomonal coverage considering immunocompromise state Patient received 1 L in the ER I will give her 2 more liters which will be according to 30 mill per kilo Blood cultures taken, repeat lactic acid normalized Patient has high BNP no history of congestive heart failure Significant amount of fluid being given monitor closely for any signs of fluid overload Patient has history of psoriasis plaque no acute exacerbation Hypertension: Continue lisinopril Patient has history of CMV infection in the past, will request records from [place] 2020 Full code Cardiac diet DVT prophylaxis added Plan for today 07/22/2023. Discontinue piperacillin/tazobactam. Continue cefepime and vancomycin. Await MRSA PCR. Add scheduled nebulization as concern for acute bronchitis which may be viral versus bacterial. Check respiratory viral panel. She has had multiple sick contacts at home. Hemodynamically stable. Review of past notes shows that patient has had a positive MICHAELA and positive anti-FUDGER antibody. Will need rheumatology follow-up as outpatient. Concern for MCTD. Plan for today 07/23/23 : Add budesonide inhalation. Continued wheezing- suspect acute bronchitis leading to curernt symptoms. RVP + enetro/rhinovirus. Continue iv abx. Add cough suppressant with codeine and prn tessalon pearls. Continue close monitoring given post splenectomy status. Leukocytosis at 23, patient clinically stable, may have persistent high counts given post splenectomy state Plan for today 07/24/2023: Clinically appears to be improving. She is afebrile. Continues to have persistent wheezing left greater than right. Continue DuoNebs and budesonide inhalation. Continue cough suppressants. Add methylprednisone 40 mg IV x 1 today and prednisone 40 mg p.o. daily. Continue to trend leukocytosis, currently at 21,000, I suspect it may take a while to trend down given her postsplenectomy state. Attestations 2 Medical Necessity Statement*: Add IV steroids today. Monitor for response. Patient high risk for clinical deterioration given her postsplenectomy state therefore would prefer to monitor her in the hospital Coding Level of Care Code Acute Code for Chg Fwd Moderate MDM includes number and complexity of problems actively addressed during encounter, amount and/or complexity of data reviewed/ordered and described risk of complication, morbidity or mortality of management as documented Diagnoses Community acquired pneumonia J18.9 Sepsis A41.9
[2023-07-24] MEDS: citalopram 20 mg Tablet 40 MG PO (20:31)
[2023-07-24] MEDS: atorvastatin 40 mg Tablet PO (20:31)
[2023-07-25] VITALS (11 sets, daily range): BP systolic 130–160; BP diastolic 75–90; PULSE 70–101; RESP 15–18; TEMP 36.4–37.2; O2SAT 93–98
[2023-07-25] MEDS: vancomycin 1,500 MG/300 ML PIGGYBACK 200 MG IV (01:18)
[2023-07-25] MEDS: heparin 5,000 unit/mL INJ 1 mL 5000 UNIT SUBCUT ×2 (01:19→12:29)
[2023-07-25] MEDS: ipratropium-albuterol 3 mL Neb INHALATION ×4 (03:05→21:07)
[2023-07-25 05:30] LABS: Hematocrit 42.3 % (36-47); Mean Corpuscular HGB Conc 32.6 g/dL (30-55); Mean Corpuscular Hemoglobin 28.6 pg (27-33); Mean Corpuscular Volume 87.8 fl (85-98); Mean Platelet Volume 9.6 fL (7.4-10.4); Platelet Count 475 10^3/cmm (157-399); Red Blood Count 4.82 10^6/uL (3.85-5.65); Red Cell Distribution Width 13.8 % (12.1-15.1); White Blood Count 20.16 10^3/uL (3.29-11.43)
[2023-07-25 05:48] LABS: Alanine Aminotransferase 40 U/L (0-33); Albumin Level 2.9 g/dL (3.5-5.2); Alkaline Phosphatase 532 U/L (35-105); Anion Gap 14.8 (5-19); Aspartate Amino Transferase 46 U/L (0-32); Blood Urea Nitrogen 8 mg/dL (8-23); Calcium 8.9 mg/dL (8.5-10.5); Carbon Dioxide 22 mmol/L (22-29); Chloride 112 mmol/L (98-107); Glomerular Filtration Rate 101.3 mL/min (90-130); Glucose 78 mg/dL (65-115); Osmolality Calculated 295 mOsm/kg (285-295); Potassium 4.8 mmol/L (3.5-5.1); Sodium 144 mmol/L (136-145); Total Bilirubin 0.7 mg/dL (0.15-1.2); Total Protein 6.9 g/dL (6.6-8.7)
[2023-07-25] MEDS: buPROPion SR (12 HR) 150 mg Tablet PO (05:52)
[2023-07-25] MEDS: pantoprazole DR 40 mg Tablet PO (05:52)
[2023-07-25] MEDS: aspirin 325 mg Tablet PO (05:52)
[2023-07-25] MEDS: lisinopril 10 mg Tablet PO (05:52)
[2023-07-25 06:36] LABS: Slide Review Slide Review Perform
[2023-07-25 06:37] LABS: Absolute Eosinophils 0.6 10^3/cmm (0.0-0.7); Absolute Neutrophil 10.7 10^3/cmm (1.4-6.5); Absolute Segmented Neutrophil 10.7 10/cmm (1.6-7.1); Eosinophils 3 %; Lymphocytes 17 %; Lymphocytes Absolute 7.1 10^3/cmm (1.2-3.4); Monocytes Absolute 1.8 10^3/cmm (0.1-0.6); Platelet Estimate Increased (Normal); Segmented Neutrophils 53 %; Total Cells Counted 100 (0-100)
[2023-07-25] MEDS: budesonide 0.5 mg/2 mL Neb INHALATION ×2 (07:34→21:07)
[2023-07-25] MEDS: cefepime 2,000 MG in sodium chloride 0.9% (plus) 50 ML 100 MG IV ×2 (08:09→21:07)
[2023-07-25] MEDS: predniSONE 20 mg Tablet 40 MG PO (08:10)
[2023-07-25] MEDS: benzonatate 100 mg Capsule PO ×2 (10:05→21:15)
--- NOTE | 2023-07-25 12:51 | PC.SOCIAL ---
IMM Update pg 2 of IMM updated and reviewed w/ patient. Copy provided and copy dated, initialed and placed in chart.
[2023-07-25 14:39] LABS: Methicillin-Resist S.aureu PCR NOT DETECTED (NOT DETECTED)
[2023-07-25 14:59] LABS: COMPLEMENT, TOTAL (CH50) >60 U/mL (31-60)
[2023-07-25 15:03] LABS: COMPLEMENT COMPONENT C3C 178 mg/dL (83-193); COMPLEMENT COMPONENT C4C 39 mg/dL (15-57)
[2023-07-25 15:24] LABS: CENTROMERE B ANTIBODY <1.0 NEG AI (<1.0 NEG); JO-1 ANTIBODY <1.0 NEG AI (<1.0 NEG); RNP ANTIBODY <1.0 NEG AI (<1.0 NEG); SCL-70 ANTIBODY <1.0 NEG AI (<1.0 NEG); SJOGREN'S ANTIBODY (SS-A) <1.0 NEG AI (<1.0 NEG); SM ANTIBODY <1.0 NEG AI (<1.0 NEG); SS-B <1.0 NEG AI (<1.0 NEG)
--- NOTE | 2023-07-25 15:53 | P.PN_ITS ---
Subjective 2 Subjective: Patient was seen this morning, reports subjective fevers and chills, fatigue, malaise, no vomiting, no abdominal pain Vitals/I&O/Wt Last Vital Signs Temp 98.1 F 07/25/23 15:48 Pulse 101 H 07/25/23 15:48 Resp 18 07/25/23 15:48 BP 130/75 07/25/23 15:48 Pulse Ox 95 07/25/23 15:48 O2 Del Method Room Air 07/25/23 15:48 07/25/23 07/25/23 07/25/23 06:59 14:59 22:59 Intake Total 300 / 2280 470 / 470 Balance 300 / 2280 470 / 470 Weight last 48 hrs Weight 100.329 kg Weight 100.244 kg Physical Exam 2 Const: COMMON NORMALS: no acute distress and patient oriented x3 Resp: COMMON NORMALS: normal respiratory effort, No retractions, No use of accessory muscles and clear to auscultation bilaterally AUSCULTATION: clear to auscultation bilaterally, crackles and wheezes Cardio: COMMON NORMALS: regular rate, regular rhythm, S1 normal heart sound present and S2 normal heart sound present RATE: regular rate RHYTHM: r egular rhythm HEART SOUNDS: S1 normal heart sound present and S2 normal heart sound present GI: COMMON NORMALS: Normal to inspection, nondistended, normoactive bowel sounds present and non-tender Extremity: COMMON NORMALS: no pedal edema Neuro: COMMON NORMALS: patient oriented x3 Psych: COMMON NORMALS: mental status grossly normal Data 07/25/23 05:20 07/25/23 05:20 Micro: Microbiology 07/23/23 09:50 Gram Stain - Final Sputum - Expectorated Sputum Sputum Culture - Final A&P Assessment and plan (1) Community acquired pneumonia: (2) Sepsis: Plan community-acquired pneumonia sepsis resolved CT scan showing tree-in-bud appearance concerning community-acquired pneumonia Blood cultures taken, repeat lactic acid normalized Hypertension: Continue lisinopril 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
[2023-07-25] MEDS: methylPREDNISolone sod succ 40 mg/mL INJ IVP (16:39)
[2023-07-25] MEDS: atorvastatin 40 mg Tablet PO (21:06)
[2023-07-25] MEDS: citalopram 20 mg Tablet 40 MG PO (21:07)
[2023-07-26 02:00] VITALS: PULSE 76; RESP 16; O2SAT 98
[2023-07-26] MEDS: vancomycin 1,500 MG/300 ML PIGGYBACK 200 MG IV (02:19)
[2023-07-26] MEDS: ipratropium-albuterol 3 mL Neb INHALATION ×2 (03:38→08:13)
[2023-07-26 04:34] VITALS: BP 134/76; PULSE 81; RESP 16; TEMP 36.4; O2SAT 94
[2023-07-26 05:10] LABS: Basophils % 0.2 %; Lymphocytes # 5.6 10^3/uL (0.8-4.8); Mean Corpuscular HGB Conc 32.4 g/dL (30-55); Mean Corpuscular Hemoglobin 28.3 pg (27-33); Mean Corpuscular Volume 87.3 fl (85-98); Mean Platelet Volume 10.1 fL (7.4-10.4); Monocytes # 1.2 10^3/uL (0.2-0.9); Monocytes % 6.9 %; Neutrophils # 11.07 10^3/uL (1.8-7.7); Neutrophils % 61.4 %; Nucleated Red Blood Cells % 0 %; Platelet Count 576 10^3/cmm (157-399); Red Blood Count 4.81 10^6/uL (3.85-5.65); Red Cell Distribution Width 13.7 % (12.1-15.1); White Blood Count 18.04 10^3/uL (3.29-11.43)
[2023-07-26] MEDS: pantoprazole DR 40 mg Tablet PO (05:27)
[2023-07-26] MEDS: buPROPion SR (12 HR) 150 mg Tablet PO (05:27)
[2023-07-26] MEDS: aspirin 325 mg Tablet PO (05:27)
[2023-07-26] MEDS: lisinopril 10 mg Tablet PO (05:27)
[2023-07-26 05:32] LABS: Alanine Aminotransferase 49 U/L (0-33); Albumin Level 3.1 g/dL (3.5-5.2); Alkaline Phosphatase 623 U/L (35-105); Anion Gap 14.3 (5-19); Aspartate Amino Transferase 46 U/L (0-32); Blood Urea Nitrogen 10 mg/dL (8-23); Calcium 9.6 mg/dL (8.5-10.5); Carbon Dioxide 22 mmol/L (22-29); Chloride 105 mmol/L (98-107); Glucose 129 mg/dL (65-115); Magnesium 2.1 mg/dL (1.7-2.3); Osmolality Calculated 285 mOsm/kg (285-295); Phosphorus 2.9 mg/dL (2.5-4.5); Potassium 4.3 mmol/L (3.5-5.1); Sodium 137 mmol/L (136-145); Total Bilirubin 0.4 mg/dL (0.15-1.2); Total Protein 7.1 g/dL (6.6-8.7)
[2023-07-26 05:34] LABS: Procalcitonin 0.11 ng/mL (0-0.5)
[2023-07-26] MEDS: methylPREDNISolone sod succ 40 mg/mL INJ IVP (05:36)
[2023-07-26 05:40] LABS: Slide Review Slide Review Perform
[2023-07-26 06:59] LABS: ANA SCREEN, IFA NEGATIVE (NEGATIVE)
[2023-07-26 07:48] VITALS: BP 150/74; PULSE 72; RESP 17; O2SAT 95
[2023-07-26 08:00] VITALS: PULSE 75; RESP 16; O2SAT 94
[2023-07-26] MEDS: budesonide 0.5 mg/2 mL Neb INHALATION (08:13)
[2023-07-26] MEDS: cefepime 2,000 MG in sodium chloride 0.9% (plus) 50 ML 100 MG IV (08:38)
[2023-07-26 08:59] LABS: PROTEIN, TOTAL 6.5 g/dL (6.1-8.1)
[2023-07-26 09:48] LABS: Cytomegalovirus Antibody (IGG) >10.00 U/mL
[2023-07-26 11:44] VITALS: BP 129/84; PULSE 84; RESP 18; O2SAT 93
--- NOTE | 2023-07-26 11:44 | PM.DCS ---
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 Patient is stating that roughly 2 and half weeks ago she went to swim in an indoor pool at her sister's place with her 2 grandkids. Next day everyone was sick with nasal congestion, crusty eyes, cough. They are still recovering from the infection but Shelly has been getting worse, she is noticing fever at home with productive cough white sputum production with mucus, she noticed couple episodes of loose stool today, she is experiencing left-sided chest discomfort as well on deep inspiration. She does not have any history of coronary artery disease or CHF. In the ER she was diagnosed with sepsis, I have requested septic bolus, she received antibiotics, lactic acid is high along leukocytosis fever tachycardia tachypnea Patient was admitted to [facility] for community-acquired pneumonia, with evidence of sepsis, with history of splenectomy, was monitored as inpatient, remained afebrile, respiratory viral panel was positive for rhinovirus, overall remained on room air, remained afebrile, discharged on a prednisone burst, with Levaquin. If any recurrent fevers please come back to the hospital, follow-up with primary care provider in 1 week Physical Exam Const: COMMON NORMALS: no acute distress and patient oriented x3 Resp: COMMON NORMALS: normal respiratory effort, No retractions, No use of accessory muscles and clear to auscultation bilaterally AUSCULTATION: clear to auscultation bilaterally Cardio: COMMON NORMALS: regular rate, regular rhythm, S1 normal heart sound present and S2 normal heart sound present RATE: regular rate RHYTHM: regular rhythm HEART SOUNDS: S1 normal heart sound present and S2 normal heart sound present GI: COMMON NORMALS: Normal to inspection, nondistended, normoactive bowel sounds present and non-tender Extremity: COMMON NORMALS: no pedal edema Neuro: COMMON NORMALS: patient oriented x3 Psych: COMMON NORMALS: mental status grossly normal Discharge Data Studies Completed and Pending Completed Studies During Hospitalization Category Date Time Status CT chest w con* [id number] Stat Cat Scan 07/21/23 21:48 Completed XR chest 1V portable [id number] Stat Exams 07/21/23 19:35 Completed CV. echo complete* [id number] Routine Ultrasound 07/22/23 00:35 Completed Pending at discharge Category Date Time Status MICHAELA Profile Rheumatology AM LABS Lab 07/23/23 06:13 Results Blood Culture Stat Lab 07/21/23 20:04 Results C Reactive Protein AM LABS Lab 07/27/23 04:00 Ordered C Reactive Protein AM LABS Lab 07/28/23 04:00 Ordered Complete Blood Count w/Auto AM LABS Lab 07/27/23 04:00 Ordered Complete Blood Count w/Auto AM LABS Lab 07/28/23 04:00 Ordered Comprehensive Metabolic Panel AM LABS Lab 07/27/23 04:00 Ordered Comprehensive Metabolic Panel AM LABS Lab 07/28/23 04:00 Ordered Magnesium AM LABS Lab 07/27/23 04:00 Ordered Magnesium AM LABS Lab 07/28/23 04:00 Ordered Phosphorus AM LABS Lab 07/27/23 04:00 Ordered Phosphorus AM LABS Lab 07/28/23 04:00 Ordered Procalcitonin AM LABS Lab 07/27/23 04:00 Ordered Procalcitonin AM LABS Lab 07/28/23 04:00 Ordered Serum Protien Electrophoresis [Total Protein Lab 07/23/23 06:13 Results Electrophoresis] AM LABS Vancomycin Trough Timed Lab 07/28/23 01:00 Ordered Radiology Impressions Chest X-Ray 07/21/23 19:35 IMPRESSION: Subtle rounded opacity projecting through the left heart shadow which was not present on the prior chest radiograph. While this may represent artifact, a true retro cardiac lesion can not be excluded and a chest CT with contrast may be of benefit to exclude an underlying lesion. Chest CT 07/21/23 21:48 IMPRESSION: Tree-in-bud opacities in the periphery of the left upper lobe, left lower lobe and to a lesser extent the medial aspect of the right lower lobe. While nonspecific this can be seen the setting of infectious process. Laboratory Results WBC 18.04 10^3/uL (3.29-11.43) H 12/19/23 04:31 RBC 4.81 10^6/uL (3.85-5.65) 07/26/23 04:31 Hgb 13.60 g/dL (11.27-16.99) 07/26/23 04:31 Hct 42.0 % (36-47) 07/26/23 04:31 MCV 87.3 fl (85-98) 07/26/23 04:31 MCH 28.3 pg (27-33) 07/26/23 04:31 MCHC 32.4 g/dL (30-55) 07/26/23 04:31 RDW 13.7 % (12.1-15.1) 07/26/23 04:31 Plt Count 576 10^3/cmm (157-399) H 07/26/23 04:31 MPV 10.1 fL (7.4-10.4) 07/26/23 04:31 Neut % (Auto) 61.4 % 07/26/23 04:31 Lymph % (Auto) 31.0 % 07/26/23 04:31 [place] % (Auto) 6.9 % 07/26/23 04:31 Eos % (Auto) 0.0 % 07/26/23 04:31 Baso % (Auto) 0.2 % 07/26/23 04:31 Neut # (Auto) 11.07 10^3/uL (1.8-7.7) H 07/26/23 04:31 Lymph # (Auto) 5.6 10^3/uL (0.8-4.8) H 07/26/23 04:31 [place] # (Auto) 1.2 10^3/uL (0.2-0.9) H 07/26/23 04:31 Eos # (Auto) 0.0 10^3/uL (0.0-0.8) 07/26/23 04:31 Baso # (Auto) 0.0 10^3/uL (0.0-0.1) 07/26/23 04:31 Nucleated RBC % (auto) 0 % 07/26/23 04:31 Total Counted 100 (0-100) 07/25/23 05:20 Atypical Lymphs % 18.0 % (0-5) H 07/25/23 05:20 Absolute Neutrophils 10.7 10^3/cmm (1.4-6.5) H 07/25/23 05:20 Segmented Neutrophils 53 % 07/25/23 05:20 Abs Segm Neuts (Man) 10.7 10/cmm (1.6-7.1) H 07/25/23 05:20 Band Neutrophils 0.0 % 07/25/23 05:20 Abs Band Neuts (Man) 0.0 10^3/cmm (0.0-1.2) 07/25/23 05:20 Absolute Lymphocytes 7.1 10^3/cmm (1.2-3.4) H 07/25/23 05:20 Lymphocytes (Manual) 17 % 07/25/23 05:20 Monocytes (Manual) 9.0 % 07/25/23 05:20 Absolute Monocytes 1.8 10^3/cmm (0.1-0.6) H 07/25/23 05:20 Eosinophils (Manual) 3 % 07/25/23 05:20 Absolute Eosinophils 0.6 10^3/cmm (0.0-0.7) 07/25/23 05:20 Basophils (Manual) 0.0 % 07/25/23 05:20 Absolute Basophils 0.0 10^3/cmm (0.0-0.2) 07/25/23 05:20 Nucleated RBCs # 0.0 /100WBC 07/26/23 04:31 Platelet Estimate Increased (Normal) H 07/25/23 05:20 PT 13.70 SECONDS (12.1-14.9) 07/21/23 20:00 INR 1.02 (0.8-1.2) 07/21/23 20:00 APTT 34.2 SECONDS (23.9-36.7) 07/21/23 20:00 D-Dimer 0.52 ug/mLFEU (0-0.59) 07/21/23 23:20 Sodium 137 mmol/L (136-145) 07/26/23 04:31 Potassium 4.3 mmol/L (3.5-5.1) 07/26/23 04:31 Chloride 105 mmol/L (98-107) 07/26/23 04:31 Carbon Dioxide 22 mmol/L (22-29) 07/26/23 04:31 Anion Gap 14.3 (5-19) 07/26/23 04:31 BUN 10 mg/dL (8-23) 07/26/23 04:31 Creatinine 0.5 mg/dL (0.5-0.9) 07/26/23 04:31 GFR Calculation 125.0 mL/min (90-130) 07/26/23 04:31 Glucose 129 mg/dL (65-115) H 07/26/23 04:31 Calculated Osmolality 285 mOsm/kg (285-295) 07/26/23 04:31 Lactic Acid 2.3 mmol/L (0.5-2.2) H 07/21/23 20:00 Lactic Acid (Sepsis) 1.0 mmol/L (0.5-2.2) 07/21/23 22:38 Calcium 9.6 mg/dL (8.5-10.5) 07/26/23 04:31 Phosphorus 2.9 mg/dL (2.5-4.5) 07/26/23 04:31 Magnesium 2.1 mg/dL (1.7-2.3) 07/26/23 04:31 Total Bilirubin 0.4 mg/dL (0.15-1.2) 07/26/23 04:31 AST 46 U/L (0-32) H 07/26/23 04:31 ALT 49 U/L (0-33) H 07/26/23 04:31 Alkaline Phosphatase 623 U/L (35-105) H 07/26/23 04:31 Lactate Dehydrogenase 171 U/L (135-214) 07/22/23 05:03 C-Reactive Protein 26.0 mg/L (0.0-4.9) H 07/26/23 04:31 NT-Pro-B Natriuret Pep 562 pg/mL (0-125) H 07/21/23 20:00 Total Protein 7.1 g/dL (6.6-8.7) 07/26/23 04:31 Albumin 3.1 g/dL (3.5-5.2) L 07/26/23 04:31 Globulin 4.0 g/dL (1.3-4.6) 07/26/23 04:31 Procalcitonin 0.11 ng/mL (0-0.5) 07/26/23 04:31 Urine Color Yellow (Yellow) 07/21/23 20:53 Urine Appearance Clear (CLEAR) 07/21/23 20:53 Urine pH 6 (5-7) 07/21/23 20:53 Ur Specific [place] 1.020 (1.005-1.030) 07/21/23 20:53 Urine Protein Neg (Negative) 07/21/23 20:53 Urine Glucose (UA) Norm (Normal) 07/21/23 20:53 Urine Ketones Negative (Negative) 07/21/23 20:53 Urine Blood Neg (Negative) 07/21/23 20:53 Urine Nitrate Negative (Negative) 07/21/23 20:53 Urine Bilirubin 1+ (Negative) H 07/21/23 20:53 Urine Urobilinogen 4+ mg/dL (Negative) H 07/21/23 20:53 Ur Leukocyte Esterase Negative (Negative) 07/21/23 20:53 Nasal Influ A H1 2008 PCR Not detected (NOT DETECT) 07/22/23 16:30 Vancomycin Trough 33.9 ug/mL (10-15) H* 07/24/23 01:30 MICHAELA IFA Animal Tis Res Negative (NEGATIVE) 07/23/23 06:13 PLACIDO-1 Antibody <1.0 neg AI (<1.0 NEG) 07/23/23 06:13 SS-A Antibody <1.0 neg AI (<1.0 NEG) 07/23/23 06:13 SS-B Antibody <1.0 neg AI (<1.0 NEG) 07/23/23 06:13 Sm (Lin) Antibody <1.0 neg AI (<1.0 NEG) 07/23/23 06:13 OFFICE AGENT Antibody <1.0 neg AI (<1.0 NEG) 07/23/23 06:13 Scl-70 Antibody <1.0 neg AI (<1.0 NEG) 07/23/23 06:13 Centromere B Antibody <1.0 neg AI (<1.0 NEG) 07/23/23 06:13 Complement C3c 178 mg/dL (83-193) 07/23/23 06:13 Complement C4c 39 mg/dL (15-57) 07/23/23 06:13 CH50 Classical Pathway >60 U/mL (31-60) H 07/23/23 06:13 Adenovirus (PCR) Not detected (NOT DETECT) 07/22/23 16:30 C. pneumoniae DNA (PCR) Not detected (NOT DETECT) 07/22/23 16:30 Coronavirus 229E (PCR) Not detected (NOT DETECT) 07/22/23 16:30 CMV IgG Ab >10.00 U/mL H 07/21/23 20:00 CMV IgM Ab 30.30 AU/mL H 07/21/23 20:00 Human Metapneumovir PCR Not detected (NOT DETECT) 07/22/23 16:30 Influenza A (H1) PCR Not detected (NOT DETECT) 07/22/23 16:30 Influenza A (H3) PCR Not detected (NOT DETECT) 07/22/23 16:30 Influenza Type A Ag negative (Negative) 07/21/23 20:18 Influenza Type A (PCR) Not detected (NOT DETECT) 07/22/23 16:30 Influenza Type B Ag negative (Negative) 07/21/23 20:18 Influenza Type B (PCR) Not detected (NOT DETECT) 07/22/23 16:30 M. pneumoniae (PCR) Not detected (NOT DETECT) 07/22/23 16:30 Parainfluenza 1 (PCR) Not detected (NOT DETECT) 07/22/23 16:30 Parainfluenza 2 (PCR) Not detected (NOT DETECT) 07/22/23 16:30 Parainfluenza 3 (PCR) Not detected (NOT DETECT) 07/22/23 16:30 Parainfluenza 4 (PCR) Not detected (NOT DETECT) 07/22/23 16:30 RSV Type A (PCR) Not detected (NOT DETECT) 07/22/23 16:30 RSV Type B (PCR) Not detected (NOT DETECT) 07/22/23 16:30 Entero/Rhino (PCR) Detected (NOT DETECT) A 07/22/23 16:30 SARS-CoV-2 (PCR) Not detected (NOT DETECT) 07/22/23 16:30 SARS-CoV-2 Ag (Rapid) negative (Negative) 07/21/23 20:18 MRSA (PCR) Not detected (NOT DETECTED) 07/24/23 09:40 Vitals Last Vital Signs Temp 97.6 F 07/26/23 04:34 Pulse 75 07/26/23 08:00 Resp 16 07/26/23 08:00 BP 150/74 07/26/23 07:48 Pulse Ox 94 07/26/23 08:00 O2 Del Method Room Air 07/26/23 08:00 Discharge Plan Discharge Patient Disposition: Home Condition: Stable Prescriptions: New prednisone 20 mg tablet 20 mg PO BID 5 Days Qty: 10 0RF levofloxacin 750 mg tablet 750 mg PO DAILY 3 Days Qty: 3 0RF Continued loratadine 10 mg tablet 10 mg PO QAM omeprazole 20 mg capsule,delayed release(DR/EC) 20 mg PO QAM aspirin 325 mg tablet 325 mg PO QAM bupropion HCl 100 mg tablet 150 mg PO QAM 30 Days Qty: 45 3RF atorvastatin 20 mg tablet 20 mg PO BEDTIME citalopram 40 mg tablet 40 mg PO BEDTIME lisinopril 10 mg tablet 10 mg PO QAM Discharge Orders: Discharge Order (Routine); Ordered 07/26/23 Ordered By: Bradley Dye Referrals: Brady Mckeon MD [Primary Care Provider] - 07/28/23 10:20 am Discharge Diet: Cardiac Discharge Activity: Resume usual activity Patient Instructions: Opioid Safety Discharge Attestations Time Spent in Discharge Care*: greater than 30 min Quality Metrics Clinical Quality Measures [ No reported AMI, CVA or VTE this stay] Coding Level of Care Code 38457 Total time (in minutes) for Discharge: 45 Diagnoses Community acquired pneumonia J18.9 Sepsis A41.9
[2023-07-26 12:19] VITALS: BP 129/84; PULSE 84; RESP 18; O2SAT 93
--- NOTE | 2023-07-26 12:19 | PC.NURSE ---
Discharge instructions provided to pt and . NO questions or concerns at this time. Pt to private vehicle via wheelchair with all belongings.
[2023-07-26 15:20] LABS: ALBUMIN 2.8 g/dL (3.8-4.8); ALPHA 1 GLOBULIN 0.5 g/dL (0.2-0.3); ALPHA 2 GLOBULIN 0.9 g/dL (0.5-0.9); BETA 1 GLOBULIN 0.4 g/dL (0.4-0.6); BETA 2 GLOBULIN 0.6 g/dL (0.2-0.5); GAMMA GLOBULIN 1.4 g/dL (0.8-1.7)
[2023-07-27 12:44] LABS: THYROID PEROXIDASE ANTIBODIES <1 IU/mL (<9)
[2023-07-31 17:15] LABS: DNA AB (DS) CRITHIDIA,IFA NEGATIVE (NEGATIVE)
== END 2023-07-26 12:20 | disposition home or self-care (01) | DRG 871 ==
LOC: ER 22:50 → MEDSURG 23:48
PROVIDERS: Student in an Organized Health Care Education/Training Program; Admitting Provider Internal Medicine; Emergency Provider Internal Medicine; PCP Family Medicine; Visit Provider Family Medicine
DX: A41.9 Sepsis, unspecified organism (principal); J18.9 Pneumonia, unspecified organism; F41.9 Anxiety disorder, unspecified; I10 Essential (primary) hypertension; Z86.718 Personal history of other venous thrombosis and embolism; Z87.891 Personal history of nicotine dependence; L40.0 Psoriasis vulgaris; I69.398 Other sequelae of cerebral infarction; F39 Unspecified mood [affective] disorder; Z90.81 Acquired absence of spleen; B97.10 Unspecified enterovirus as the cause of diseases classified elsewhere; B97.89 Other viral agents as the cause of diseases classified elsewhere
CPT/HCPCS: 36415; 71045; 71260; 80048; 80053; 80202; 81003; 83605; 83615; 83735; 83880; 84100; 84145; 84155; 84165; 85007; 85025; 85378; 85610; 85730; 86140; 86160; 86162; 86235; 86255; 86376; 86403; 87040; 87070; 87205; 87426; 87486; 87581; 87633; 87641; 87804; 93306; 94640; 96365; 96372; 99285; J0692; J0696; J1644; J1940; J2543; J2920; J3370; J7030; J7120; J7512; J7626; Q9967

== ENCOUNTER → 2023-08-09 10:47 | Outpatient (BNVA) | payer MEDICARE, SELFPAY | PROVIDERS: PCP Family Medicine; Visit Provider Podiatrist Foot & Ankle Surgery | DX: M21.612 Bunion of left foot (principal); Q82.8 Other specified congenital malformations of skin; M20.42 Other hammer toe(s) (acquired), left foot | CPT/HCPCS: 99213 ==

== ENCOUNTER → 2024-06-05 16:38 | Outpatient (BNVA) | payer MEDICARE, SELFPAY | PROVIDERS: PCP Family Medicine; Visit Provider Family Medicine | DX: Z13.220 Encounter for screening for lipoid disorders (principal); Z51.81 Encounter for therapeutic drug level monitoring; E55.9 Vitamin D deficiency, unspecified; I63.9 Cerebral infarction, unspecified; E11.9 Type 2 diabetes mellitus without complications; R53.81 Other malaise; R53.83 Other fatigue | CPT/HCPCS: 80053; 80061; 82306; 83036; 84443; 85025 ==

== ENCOUNTER 2024-06-16 17:23 | Emergency (ER) | payer MEDICARE, SELFPAY ==
[2024-06-16 17:43] VITALS: BP 120/75; PULSE 73; RESP 18; TEMP 36.5; O2SAT 96
--- NOTE | 2024-06-16 19:41 | CTR_ITS ---
PROCEDURE INFORMATION: Exam: CT Head Without Contrast Exam date and time: 06/16/2024 8:44 PM Age: 63 years old Clinical indication: Injury or trauma; Fall; Blunt trauma (contusions or hematomas); Patient HX: Patient fell at home hitting head on floor. C/O diffuse head pain. ; Additional info: Fall, head injury TECHNIQUE: Imaging protocol: Computed tomography of the head without contrast. Radiation optimization: All CT scans at this facility use at least one of these dose optimization techniques: automated exposure control; mA and/or kV adjustment per patient size (includes targeted exams where dose is matched to clinical indication); or iterative reconstruction. COMPARISON: MR angio head wo con [id number] 05/30/2020 9:17 AM RADIATION DOSE METRICS: Total DLP (mGy-cm): 1157.88 FINDINGS: Brain: Normal. No hemorrhage. Unremarkable white matter. No mass effect. Cerebral ventricles: No ventriculomegaly. Paranasal sinuses: Visualized sinuses are unremarkable. No fluid levels. Mastoid air cells: Visualized mastoid air cells are well aerated. Bones: Unremarkable. No acute fracture. Soft tissues: Unremarkable. CT/CT head wo con* [id number] IMPRESSION: No acute intracranial abnormality.
--- NOTE | 2024-06-16 19:41 | XRR_ITS ---
PROCEDURE INFORMATION: Exam: XR Left Humerus Exam date and time: 06/16/2024 7:50 PM Age: 63 years old Clinical indication: Injury or trauma; Fall; Blunt trauma (contusions or hematomas); Arm, upper; Patient HX: Patient fell at home landing onto left arm. C/O left upper arm pain. With reduced rom. ; Additional info: Fall, arm pain TECHNIQUE: Imaging protocol: Radiologic exam of the left humerus. Views: 2 or more views. COMPARISON: [place] bone scan whole body* [id number] 12/28/2021 11:14 AM FINDINGS: Bones/joints: Humeral neck mildly impacted fracture. Proximal to mid humeral diaphyseal oblique angulated displaced fracture. Soft tissues: Normal. XR/[place] [id number] IMPRESSION: 1. Humeral neck mildly impacted fracture. 2. Proximal to mid humeral diaphyseal oblique angulated displaced fracture.
--- NOTE | 2024-06-16 19:52 | ED_ITS ---
HPI - Extremity Problem General: Chief complaint: Extremity Injury, Upper Stated complaint: fell left arm injury Time Seen by Provider: 06/16/24 19:39 History of Present Illness: 63-year-old female presents emergency ro om after a fall. Says she was chasing her cat lost her balance. Having pain in her shoulder arm and elbow on the left side. Apparently she hit her head. She does not have any head pain. No loss of consciousness. No altered mental status. No nausea or vomiting. She does have a small hematoma on her right forehead. No other injuries. No pain. No chest pain. No shortness of breath. No abdominal pain. Related Data Home Medications Medication Instructions Recorded Confirmed aspirin 325 mg tablet 325 mg PO QAM 03/03/20 06/15/24 loratadine 10 mg tablet 10 mg PO QAM 03/03/20 06/15/24 omeprazole 20 mg capsule,delayed 20 mg PO QAM 03/03/20 06/15/24 release Previous Rx's Medication Instructions Recorded meningococcal B vac,4-cmp 50 0.5 ml IM ONCE #0.5 mL 07/28/23 mcg-50 mcg-50 mcg-25 mcg/0.5mL IM syringe bupropion HCl 100 mg tablet 200 mg (2 x 100 mg) PO QAM 30 days 05/08/24 #60 tabs citalopram 40 mg tablet 40 mg PO BEDTIME #30 tabs 05/08/24 lisinopril 10 mg tablet See Rx Instructions .Route 05/23/24 .COMPLEX #90 tabs atorvastatin 20 mg tablet 20 mg PO BEDTIME #90 tabs 06/05/24 nystatin 100,000 unit/gram topical 1 applic topical BID #60 grams 06/05/24 powder fluconazole 150 mg tablet 150 mg PO DAILY 3 days #11 tabs 06/15/24 miconazole nitrate 2 % topical 1 applic topical BID PRN rash #30 06/15/24 cream grams hydrocodone 5 mg-acetaminophen 325 1 tab PO Q6H PRN pain #20 tabs 06/16/24 mg tablet polyethylene glycol 3350 17 17 g PO DAILY #510 grams 06/16/24 gram/dose oral powder (Miralax) Allergies Allergy/AdvReac Type Severity Reaction Status Date / Time Sulfa (Sulfonamide Allergy HIVES Verified 06/16/24 17:51 Antibiotics) nitrofurantoin AdvReac SHORTNESS Verified 06/16/24 17:51 [From Macrobid] OF BREATH Review of Systems Narrative: Constitutional symptoms: Negative except as documented in HPI. Skin symptoms: Negative except as documented in HPI. Eye symptoms: Negative except as documented in HPI. ENMT symptoms: Negative except as documented in HPI. Respiratory symptoms: Negative except as documented in HPI. Cardiovascular symptoms: Negative except as documented in HPI. Gastrointestinal symptoms: Negative except as documented in HPI. Genitourinary symptoms: Negative except as documented in HPI. Musculoskeletal symptoms: Negative except as documented in HPI. Neurologic symptoms: Negative except as documented in HPI. Psychiatric symptoms: Negative except as documented in HPI. Endocrine symptoms: Negative except as documented in HPI. 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 Hx of hysterectomy 03/2017 - No cancer History of delivery 1994 History of hysteroscopy Family History Father Glaucoma Sister Morquio syndrome Connective tissue disease without genetic confirmation Brother CAD (coronary artery disease), Onset Age: 48 at age 48 with heart issues/electrolyte issues Unknown Cancer colon cancer Social History Smoking and tobacco/nicotine status: unknown if used tobacco/nicotine Quit status (tobacco/nicotine): has quit using Year quit tobacco: 03/2021 Alcohol intake: never Substance/Drug Use: never Physical Exam Narrative: EXAM NARRATIVE: General: Alert, no acute distress. Skin: Warm, dry. Head: Normocephalic, small bruise on the right forehead.. Neck: Supple, trachea midline. Eye: Extraocular movements are intact. Ears, nose, mouth and throat: mucosa moist. Cardiovascular: Regular, Normal peripheral perfusion. Respiratory: Lungs are clear to auscultation, respirations are non-labored, breath sounds are equal, Symmetrical chest wall expansion. Gastrointestinal: Soft, Nontender, Non distended Musculoskeletal: Patient has an obvious deformity mid right humerus. Neurovascularly intact Neurological: Alert and oriented, No focal neurological deficit observed. Psychiatric: Cooperative, appropriate mood & affect. Course Vital Signs: Vital signs: Vital Signs Temperature 97.7 F 06/16/24 17:43 Pulse Rate 73 06/16/24 17:43 Respiratory Rate 16 06/16/24 20:32 Blood Pressure 120/75 06/16/24 17:43 Pulse Oximetry 97 06/16/24 20:32 MDM - Extremity (Nontraumatic) Medical Decision Making CT head: No acute intracranial process. no intracranial hemorrhage, no evidence of infarct. no evidence of acute fracture.This was reviewed and interpreted by myself the ER physician. Chest x-ray: No acute process. No infiltrate. No pneumothorax. This was reviewed and interpreted by myself the emergency room physician. I also reviewed the radiology report. X-ray of the left humerus shows a midshaft fracture that is fairly angulated on 1 view. This is very unstable. This was reviewed and interpreted by myself the emergency room physician. I also reviewed the radiology report. Consultation: I spoke with Dr. Walters who recommends a shoulder to armpit sugar- tong and a sling and follow-up in clinic. Assessment and plan: Humerus fracture 2 doses of morphine here in the emergency room. Some [employer]'s for home for tonight. - Discharged home - Discussed findings and plan with patient. Answered any questions. - All imaging was reviewed and interpreted personally by myself, the ER physician. - Evaluation and treatment of this problem were appropriate in the emergency setting XR interpretation done by ED provider, pending radiology final review Discharge Plan Discharge Patient Disposition: Home Clinical Impression: Fracture, humerus Condition: Stable Prescriptions: New hydrocodone-acetaminophen 5-325 mg tablet 1 tab PO Q6H PRN (Reason: pain) Qty: 20 0RF polyethylene glycol 3350 [Miralax] 17 gram/dose powder 17 g PO DAILY Qty: 510 0RF Rx Instructions: Take 1 scoop daily while taking pain medications. No Action loratadine 10 mg tablet 10 mg PO QAM omeprazole 20 mg capsule,delayed release(DR/EC) 20 mg PO QAM aspirin 325 mg tablet 325 mg PO QAM meningococcal B vaccine,4-comp 50-50-50-25 mcg/0.5 mL syringe 0.5 ml IM ONCE Qty: 0.5 0RF Rx Instructions: Per guidelines after splenectomy bupropion HCl 100 mg tablet 200 mg PO QAM 30 Days Qty: 60 6RF citalopram 40 mg tablet 40 mg PO BEDTIME Qty: 30 6RF atorvastatin 20 mg tablet 20 mg PO BEDTIME Qty: 90 3RF nystatin 100,000 unit/gram powder 1 applic topical BID Qty: 60 3RF miconazole nitrate 2 % cream 1 applic topical BID PRN (Reason: rash) Qty: 30 2RF fluconazole 150 mg tablet 150 mg PO DAILY 3 Days Qty: 11 0RF Rx Instructions: take 1 tab poqd for 3d then 1 tab q week for total of 8 weeks lisinopril 10 mg tablet See Rx Instructions .ROUTE .COMPLEX Qty: 90 3RF Dose Instruction: Take 1 tablet by mouth once daily Rx Instructions: Take 1 tablet by mouth once daily Discharge Orders: Discharge ED (Routine); Ordered 06/16/24 Ordered By: Ceci Desai Referrals: Mague Walters MD [Physician] - 4-7 days (Please call for an appointment) Brady Mckeon MD [Primary Care Provider] - Discharge Diet: Usual diet Discharge Activity: Limit activity as instructed Patient Instructions: Arm Fracture in Adults (ED), How to Use a Sling (ED), Splint Care (ED), Opioid Safety, Pain Management Activity Restrictions/Additional Instructions: Thank you for choosing [facility] for your healthcare needs today. Please realize this is an emergency room and that we are providing you with a medical screening exam and this may not be complete and all inclusive of all the testing and or work up that you may need to determine your ailment or severity of your illness. You have been screened and evaluated and felt safe for discharge. Health conditions do change or evolve sometimes and as such it is important that you follow up with your Primary Doctor to be re checked, 3-5 days is a general good time frame for follow up. You are always welcome to return to the ED for re assessment if your symptoms are worsening or you have new concerns Coding Level of Care Code ED Paralegal Assistant for Andrea Young
--- NOTE | 2024-06-16 20:03 | XRR_ITS ---
PROCEDURE INFORMATION: Exam: XR Chest Exam date and time: 06/16/2024 7:54 PM Age: 63 years old Clinical indication: Injury or trauma; Blunt trauma (contusions or hematomas); Patient HX: Patient sustained fall at home. Pre op for humeral fracture. TECHNIQUE: Imaging protocol: Radiologic exam of the chest. Views: 1 view. COMPARISON: CT chest w con* [id number] 07/21/2023 10:05 PM FINDINGS: Lungs: Bibasilar atelectasis versus infiltrate. Pleural spaces: Unremarkable. No pleural effusion. No pneumothorax. Heart/Mediastinum: Cardiomegaly. Bones/joints: Unremarkable. XR/XR chest 1V portable [id number] IMPRESSION: 1. Bibasilar atelectasis versus infiltrate. 2. Cardiomegaly.
[2024-06-16 20:32] VITALS: RESP 16; O2SAT 97
[2024-06-16] MEDS: ondansetron 2 mg/ML SDV 2 mL 4 MG IVP (20:32)
[2024-06-16] MEDS: morphine 4 mg/mL SDV 1 mL IVP ×2 (20:32→21:59)
[2024-06-16 21:00] VITALS: BP 138/82; PULSE 73; RESP 18; O2SAT 97
--- NOTE | 2024-06-16 21:48 | XRR_ITS ---
PROCEDURE INFORMATION: Exam: XR Left Humerus Exam date and time: 06/16/2024 9:59 PM Age: 63 years old Clinical indication: Pain; Shoulder; Left; Patient HX: Post splint; Lt humeral head fx/midshaft humeral FX TECHNIQUE: Imaging protocol: Radiologic exam of the left humerus. Views: 2 or more views. COMPARISON: [place] [id number] 06/16/2024 7:50 PM FINDINGS: Bones/joints: Humeral head and neck comminuted mildly displaced fracture. Proximal mid humeral diaphysis oblique fracture with mild angulation and displacement with improved alignment compared to prior exam. Soft tissues: Normal. XR/[place] [id number] IMPRESSION: 1. Humeral head and neck comminuted mildly displaced fracture. 2. Proximal mid humeral diaphysis oblique fracture with mild angulation and displacement with improved alignment compared to prior exam.
[2024-06-16 21:59] VITALS: O2SAT 97
[2024-06-16 22:24] VITALS: BP 108/63; PULSE 80; RESP 16; O2SAT 96
== END 2024-06-16 22:22 | disposition home or self-care (01) ==
PROVIDERS: Emergency Provider Emergency Medicine; PCP Family Medicine
DX: S42.392A Other fracture of shaft of left humerus, initial encounter for closed fracture (principal); Z79.82 Long term (current) use of aspirin; Z87.891 Personal history of nicotine dependence; Z86.73 Personal history of transient ischemic attack (TIA), and cerebral infarction without residual deficits; I10 Essential (primary) hypertension; W19.XXXA Unspecified fall, initial encounter
CPT/HCPCS: 70450; 71045; 73060; 96374; 96375; 96376; 99285; J2270; J2405

== ENCOUNTER → 2024-06-22 09:17 | Outpatient (BNVA) | payer MEDICARE, SELFPAY | PROVIDERS: PCP Family Medicine; Visit Provider Specialist | DX: S42.352A Displaced comminuted fracture of shaft of humerus, left arm, initial encounter for closed fracture; S42.292A Other displaced fracture of upper end of left humerus, initial encounter for closed fracture; W19.XXXA Unspecified fall, initial encounter | CPT/HCPCS: 73030; 73060 ==

== ENCOUNTER 2024-06-22 12:18 | Outpatient (CLI) | payer MEDICARE, SELFPAY | END 2024-06-22 12:19 | disposition home or self-care (01) | PROVIDERS: Visit Provider Specialist | DX: Z46.89 Encounter for fitting and adjustment of other specified devices (principal); S42.302S Unspecified fracture of shaft of humerus, left arm, sequela; X58.XXXS Exposure to other specified factors, sequela | CPT/HCPCS: 23600; 24530; 99205; A4565; L3980 ==

== ENCOUNTER → 2024-07-12 10:11 | Outpatient (BNVA) | payer MEDICARE, SELFPAY | PROVIDERS: PCP Family Medicine; Visit Provider Specialist | DX: S42.292D Other displaced fracture of upper end of left humerus, subsequent encounter for fracture with routine healing; S42.352D Displaced comminuted fracture of shaft of humerus, left arm, subsequent encounter for fracture with routine healing; X58.XXXD Exposure to other specified factors, subsequent encounter | CPT/HCPCS: 73030; 73060; 99024 ==

== ENCOUNTER → 2024-08-13 11:30 | Outpatient (BNVA) | payer MEDICARE, SELFPAY | PROVIDERS: PCP Family Medicine; Visit Provider Specialist | DX: S42.352D Displaced comminuted fracture of shaft of humerus, left arm, subsequent encounter for fracture with routine healing; S42.292G Other displaced fracture of upper end of left humerus, subsequent encounter for fracture with delayed healing; X58.XXXD Exposure to other specified factors, subsequent encounter | CPT/HCPCS: 73030; 73060; 99024 ==

== ENCOUNTER → 2024-09-03 09:50 | Outpatient (BNVA) | payer MEDICARE, SELFPAY | PROVIDERS: PCP Family Medicine; Visit Provider Specialist | DX: S42.352D Displaced comminuted fracture of shaft of humerus, left arm, subsequent encounter for fracture with routine healing (principal); S42.292D Other displaced fracture of upper end of left humerus, subsequent encounter for fracture with routine healing; X58.XXXD Exposure to other specified factors, subsequent encounter | CPT/HCPCS: 73030; 73060; 99024 ==

== ENCOUNTER → 2024-10-01 11:16 | Outpatient (BNVA) | payer MEDICARE, SELFPAY | PROVIDERS: PCP Family Medicine; Visit Provider Specialist | DX: S42.292G Other displaced fracture of upper end of left humerus, subsequent encounter for fracture with delayed healing (principal); S42.352G Displaced comminuted fracture of shaft of humerus, left arm, subsequent encounter for fracture with delayed healing; X58.XXXD Exposure to other specified factors, subsequent encounter; R53.1 Weakness | CPT/HCPCS: 73030; 73060 ==

== ENCOUNTER 2024-10-01 15:06 | Outpatient (RCR) | payer MEDICARE, SELFPAY | END 2024-10-05 23:59 | disposition home or self-care (01) | LOC: SPT 15:06 | PROVIDERS: Visit Provider Specialist | DX: M62.81 Muscle weakness (generalized) (principal); R26.89 Other abnormalities of gait and mobility; S42.352G Displaced comminuted fracture of shaft of humerus, left arm, subsequent encounter for fracture with delayed healing; X58.XXXD Exposure to other specified factors, subsequent encounter; S42.292D Other displaced fracture of upper end of left humerus, subsequent encounter for fracture with routine healing | CPT/HCPCS: 97161; 99213 ==

== ENCOUNTER 2024-10-06 06:30 | Outpatient (RCR) | payer MEDICARE, SELFPAY | END 2024-11-05 23:59 | disposition home or self-care (01) | LOC: SPT 06:30 | PROVIDERS: PCP Family Medicine; Visit Provider Specialist | DX: M62.81 Muscle weakness (generalized) (principal); R26.89 Other abnormalities of gait and mobility | CPT/HCPCS: 97110 ==

== ENCOUNTER 2024-10-10 14:40 | Outpatient (CLI) | payer MEDICARE, SELFPAY ==
--- NOTE | 2024-10-10 15:00 | CT_ITS ---
WS: [id number] CT LEFT SHOULDER, NONCONTRAST HISTORY: fracture Technique: All CT scans at [facility] use at least one of these dose optimization techniques: automated exposure control; mA and/or kV adjustment per patient size (includes targeted exams where dose is matched to clinical indication); or iterative reconstruction. DLP: 419.76 mGy COMPARISON: Shoulder radiograph 10/01/2024 Nondisplaced proximal humeral fracture extending through the neck. There is slight impaction along the fracture line. Bones are diffusely osteopenic. Questionable mild healing and callus formation along the fracture. No displacement from the glenoid. Scapula is intact. AC joint is normal. Visualized clavicle is normal. Visualized LEFT lung is clear. No significant joint effusion at the shoulder. Note is made of a mid humeral diaphyseal fracture which will be described on the LEFT humeral CT. CT/CT shoulder LT wo con* [id number] IMPRESSION: 1. Nondisplaced proximal humeral fracture extending through the neck. There is slight impaction along the fracture line but no displacement. 2. Osteopenia with minimal healing at the fracture line.
--- NOTE | 2024-10-10 15:30 | CT_ITS ---
WS: [id number] CT LEFT HUMERUS, NONCONTRAST HISTORY: Follow-up humeral fracture. Technique: All CT scans at [facility] use at least one of these dose optimization techniques: automated exposure control; mA and/or kV adjustment per patient size (includes targeted exams where dose is matched to clinical indication); or iterative reconstruction. DLP: 1488.65 mGy.cm COMPARISON: Radiograph 10/01/2024, 09/03/2024 and 08/13/2024 Comminuted fracture is identified through the mid humeral diaphysis. Multiple comminuted fracture fragments are noted at the fracture site. Fracture components are slightly overlapping and displaced by up to 1.5 cm. There is evidence for healing and callus formation but there is approximately 35 degrees angulation at the fracture site. Distal fracture site is displaced medially. Change in alignment is noted since the radiograph. Visualized lung is clear. CT/CT humerus LT wo con* [id number] IMPRESSION: 1. Comminuted, displaced mid LEFT humeral diaphysis fracture. There is evidenc e for some healing and callus formation. 2. Fracture angulation displaced approximately 35 degrees from normal.
== END 2024-10-10 14:41 | disposition home or self-care (01) ==
LOC: RAD 14:41
PROVIDERS: PCP Family Medicine; Visit Provider Specialist
DX: S42.352G Displaced comminuted fracture of shaft of humerus, left arm, subsequent encounter for fracture with delayed healing (principal); S42.292G Other displaced fracture of upper end of left humerus, subsequent encounter for fracture with delayed healing; R93.6 Abnormal findings on diagnostic imaging of limbs; M85.812 Other specified disorders of bone density and structure, left shoulder; X58.XXXD Exposure to other specified factors, subsequent encounter
CPT/HCPCS: 73200

== ENCOUNTER → 2024-10-29 09:20 | Outpatient (BNVA) | payer MEDICARE, SELFPAY | PROVIDERS: PCP Family Medicine; Visit Provider Specialist | DX: S42.352G Displaced comminuted fracture of shaft of humerus, left arm, subsequent encounter for fracture with delayed healing (principal); S42.292G Other displaced fracture of upper end of left humerus, subsequent encounter for fracture with delayed healing; Z46.89 Encounter for fitting and adjustment of other specified devices; X58.XXXD Exposure to other specified factors, subsequent encounter | CPT/HCPCS: 73060; 99213 ==

== ENCOUNTER 2024-11-06 06:00 | Outpatient (RCR) | payer MEDICARE, SELFPAY | END 2024-11-16 08:27 | disposition home or self-care (01) | LOC: SPT 06:00 | PROVIDERS: PCP Family Medicine; Visit Provider Specialist | DX: R53.1 Weakness (principal) | CPT/HCPCS: 97110; 97164 ==

== ENCOUNTER 2024-11-13 14:35 | Outpatient (CLI) | payer MEDICARE, SELFPAY ==
--- NOTE | 2024-11-13 14:41 | MR_ITS ---
WS: [id number] MRI ABDOMEN WITH AND WITHOUT CONTRAST. COMPARISON: MRCP 12/26/2021, CT abdomen 02/24/2023 Multiplanar, multisequence imaging is performed with and without contrast. MultiHance 20 mL. Liver is normal size. No significant hepatic steatosis. No signal dropout on out of phase imaging. There is no intrahepatic duct dilatation or mass identified. There is normal enhancement throughout the liver. No common bile duct dilatation. Portal vein appears normal. There is limitation by breathing motion artifact on the postcontrast imaging. There are a few scattered granulomata which were also noted on a prior CT. Gallbladder is normally distended. Stones were identified on a prior CT within the gallbladder. The stones are not identified by MRI. Mild pancreatic atrophy. No pancreatic head mass. No pancreatic duct dilatation. No adrenal mass. Normal RIGHT kidney. There are several cysts within the LEFT kidney with the largest in the mid cortex measuring 1.3 x 1.9 cm. Mild atherosclerosis aorta. Retroaortic LEFT renal vein. There is no ascites or adenopathy. The visualized GI tract is normal. MR/MR abdomen wo/w con* [id number] IMPRESSION: 1. Normal size liver with no hepatic steatosis. 2. No intrahepatic duct dilatation. 3. Mild pancreatic atrophy, stable. 4. Negative gallbladder. Previously described stones are not evident by MRI. 5. LEFT renal cyst. No solid mass.
[2024-11-13] MEDS: gadobenate dimeglumine 20 mL vial IV (15:51)
== END 2024-11-13 14:36 | disposition home or self-care (01) ==
LOC: RAD 14:36
PROVIDERS: PCP Family Medicine; Visit Provider Nurse Practitioner
DX: R79.89 Other specified abnormal findings of blood chemistry (principal); R74.8 Abnormal levels of other serum enzymes; K86.89 Other specified diseases of pancreas; N28.1 Cyst of kidney, acquired; K75.3 Granulomatous hepatitis, not elsewhere classified; I70.0 Atherosclerosis of aorta; R93.89 Abnormal findings on diagnostic imaging of other specified body structures
CPT/HCPCS: 74183

== ENCOUNTER → 2024-12-03 08:41 | Outpatient (BNVA) | payer MEDICARE, SELFPAY | PROVIDERS: PCP Family Medicine; Visit Provider Specialist | DX: S42.352G Displaced comminuted fracture of shaft of humerus, left arm, subsequent encounter for fracture with delayed healing (principal); X58.XXXD Exposure to other specified factors, subsequent encounter | CPT/HCPCS: 73060; 99213 ==

== ENCOUNTER → 2025-02-25 09:51 | Outpatient (BNVA) | payer MEDICARE, SELFPAY | PROVIDERS: PCP Family Medicine; Visit Provider Specialist | DX: X58.XXXD Exposure to other specified factors, subsequent encounter (principal); S42.352G Displaced comminuted fracture of shaft of humerus, left arm, subsequent encounter for fracture with delayed healing | CPT/HCPCS: 73060; 99213 ==

== ENCOUNTER 2025-04-01 13:48 | Outpatient (CLI) | payer MEDICARE, SELFPAY ==
--- NOTE | 2025-04-01 14:00 | CT_ITS ---
WS: [id number] CT LEFT NUMEROUS, NONCONTRAST HISTORY: left humeral shaft fx Technique: All CT scans at [facility] use at least one of these dose optimization techniques: automated exposure control; mA and/or kV adjustment per patient size (includes targeted exams where dose is matched to clinical indication); or iterative reconstruction. DLP: 679.39 mGy.cm COMPARISON: 10/10/2024, radiograph 02/25/2025 Patient has a known mid humeral diaphysis fracture which is overlapping and angulated. There is no callus formation along the fracture site. 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 As compared to the most recent radiographs and also the prior CT there has been no obvious change in alignment since 10/10/2024. Mild AC joint and glenohumeral joint arthritis. No soft tissue masses. Visualized LEFT lung is clear. CT/CT humerus LT wo con* [id number] IMPRESSION: No change in the known mid LEFT humeral diaphyseal fracture with nonunion. No c allus formation or healing along the fracture site.
== END 2025-04-01 13:49 | disposition home or self-care (01) ==
LOC: RAD 13:49
PROVIDERS: PCP Family Medicine; Visit Provider Specialist
DX: S42.352G Displaced comminuted fracture of shaft of humerus, left arm, subsequent encounter for fracture with delayed healing (principal); M19.012 Primary osteoarthritis, left shoulder; X58.XXXD Exposure to other specified factors, subsequent encounter
CPT/HCPCS: 73200

== ENCOUNTER → 2025-04-15 08:33 | Outpatient (BNVA) | payer MEDICARE, SELFPAY | PROVIDERS: PCP Family Medicine; Visit Provider Nurse Practitioner | DX: S42.352G Displaced comminuted fracture of shaft of humerus, left arm, subsequent encounter for fracture with delayed healing (principal); X58.XXXD Exposure to other specified factors, subsequent encounter | CPT/HCPCS: 73060; 99214 ==

== ENCOUNTER 2025-05-05 19:43 | Emergency (ER) | payer MEDICARE, SELFPAY ==
[2025-05-05] VITALS (12 sets, daily range): BP systolic 104–132; BP diastolic 58–77; PULSE 67–77; RESP 16–24; TEMP 36.4; O2SAT 92–100; BMI 36.1
--- NOTE | 2025-05-05 19:43 | CTR_ITS ---
PROCEDURE INFORMATION: Exam: CT Head Without Contrast Exam date and time: 05/05/2025 7:34 PM Age: 64 years old Clinical indication: Stroke-like symptoms; Speech disturbance and syncope/collapse; RT upper extremity and RT lower extremity weakness; Additional info: RT sided weakness with slurred speech post syncopal episode. Last known well time of 1930 hours. TECHNIQUE: Imaging protocol: Computed tomography of the head without contrast. Radiation optimization: All CT scans at this facility use at least one of these dose optimization techniques: automated exposure control; mA and/or kV adjustment per patient size (includes targeted exams where dose is matched to clinical indication); or iterative reconstruction. Other technique: STROKE PROTOCOL was implemented. COMPARISON: CT head wo con* [id number] 06/16/2024 8:44 PM RADIATION DOSE METRICS: Total DLP (mGy-cm): 1175.38 FINDINGS: Brain: There is an old lacunar infarct in the left thalamus. No evidence of intracranial hemorrhage, mass effect, midline shift or extra-axial fluid collections. Midline structures are normal. Koo-white matter differentiation is normal. Cerebral ventricles: No ventriculomegaly. Paranasal sinuses: Mucosal thickening in the ethmoid and maxillary sinuses. Mastoid air cells: Visualized mastoid air cells are well aerated. Bones: Unremarkable. No acute fracture. Soft tissues: Unremarkable. CT/CT head thrombolytic [id number] IMPRESSION: No acute intracranial abnormality. ASSESSMENT: ASPECTS ([place] Stroke Program Early CT Score) is 10.
--- NOTE | 2025-05-05 19:43 | XRR_ITS ---
PROCEDURE INFORMATION: Exam: XR Chest Exam date and time: 05/05/2025 8:09 PM Age: 64 years old Clinical indication: Other: Poss CVA; EMS arrival for possible CVA; Additional info: Weakness TECHNIQUE: Imaging protocol: Radiologic exam of the chest. Views: 1 view. COMPARISON: CR XR chest 1V portable [id number] 06/16/2024 7:54 PM FINDINGS: Lungs: Unremarkable. No consolidation. Pleural spaces: Unremarkable. No pleural effusion. No pneumothorax. Heart/Mediastinum: Unremarkable. No cardiomegaly. Bones/joints: Unremarkable. XR/XR chest 1V portable [id number] IMPRESSION: No acute findings.
--- NOTE | 2025-05-05 19:43 | CTR_ITS ---
PROCEDURE INFORMATION: Exam: CTA Head With Contrast, Arteriography Exam date and time: 05/05/2025 7:44 PM Age: 64 years old Clinical indication: Stroke-like symptoms; Speech disturbance and syncope/collapse; RT upper extremity and RT lower extremity weakness; Additional info: R weakness TECHNIQUE: Imaging protocol: Computed tomographic angiography of the head with contrast. Exam focused on the arteries. 3D rendering (Not supervised by radiologist): MIP and/or 3D reconstructed images were created by the technologist. Radiation optimization: All CT scans at this facility use at least one of these dose optimization techniques: automated exposure control; mA and/or kV adjustment per patient size (includes targeted exams where dose is matched to clinical indication); or iterative reconstruction. Contrast material: OMNI 350; Contrast volume: 100 ml; Contrast route: INTRAVENOUS (IV); COMPARISON: CT head thrombolytic [id number] 05/05/2025 7:34 PM RADIATION DOSE METRICS: Total DLP (mGy-cm): 436.59 FINDINGS: ANTERIOR CIRCULATION: Right internal carotid artery: Intracranial segment is patent with no significant stenosis. No aneurysm. Right middle cerebral artery: No occlusion or significant stenosis. No aneurysm. Right anterior cerebral artery: No occlusion or significant stenosis. No aneurysm. Left internal carotid artery: Intracranial segment is patent with no significant stenosis. No aneurysm. Left middle cerebral artery: No occlusion or significant stenosis. No aneurysm. Left anterior cerebral artery: No occlusion or significant stenosis. No aneurysm. POSTERIOR CIRCULATION: Right vertebral artery: No occlusion or significant stenosis. No aneurysm. Left vertebral artery: No occlusion or significant stenosis. No aneurysm. Basilar artery: No occlusion or significant stenosis. No aneurysm. Right posterior cerebral artery: No occlusion or significant stenosis. No aneurysm. Left posterior cerebral artery: No occlusion or significant stenosis. No aneurysm. Brain: No definite mass, mass effect, or midline shift. Cerebral ventricles: No ventriculomegaly. Bones/joints: Unremarkable. No acute fracture. Soft tissues: Unremarkable. PROCEDURE INFORMATION: Exam: CTA Neck With Contrast Exam date and time: 05/05/2025 7:44 PM Age: 64 years old Clinical indication: Stroke-like symptoms; Speech disturbance and syncope/collapse; RT upper extremity and RT lower extremity weakness; Additional info: R weakness TECHNIQUE: Imaging protocol: Computed tomographic angiography of the neck with contrast. Exam focused on the cervical segments of the vasculature. 3D rendering (Not supervised by radiologist): MIP and/or 3D reconstructed images were created by the technologist. Radiation optimization: All CT scans at this facility use at least one of these dose optimization techniques: automated exposure control; mA and/or kV adjustment per patient size (includes targeted exams where dose is matched to clinical indication); or iterative reconstruction. Contrast material: OMNI 350; Contrast volume: 100 ml; Contrast route: INTRAVENOUS (IV); COMPARISON: CT head thrombolytic [id number] 05/05/2025 7:34 PM RADIATION DOSE METRICS: Total DLP (mGy-cm): 436.59 FINDINGS: Right common carotid artery: No stenosis. No dissection or occlusion. Right internal carotid artery: No stenosis of the extracranial segment. No dissection or occlusion. Right external carotid artery: No occlusion or stenosis of the origin. Left common carotid artery: No stenosis. No dissection or occlusion. Left internal carotid artery: No stenosis of the extracranial segment. No dissection or occlusion. Left external carotid artery: No occlusion or stenosis of the origin. Right vertebral artery: No stenosis. No dissection or occlusion. Left vertebral artery: No stenosis. No dissection or occlusion. Soft tissues: Normal. No significant soft tissue swelling. Bones/joints: No acute fracture. Other findings: There is a 10.4 mm cyst or nodule in the left lobe. CT/CT angio headneck* [id number] IMPRESSION: No large vessel stenosis or occlusion. IMPRESSION: No acute vascular abnormality. REFERENCES: NASCET CRITERIA. The degree of stenosis in the cervical segment of the internal carotid artery is based on NASCET criteria. Normal is no stenosis. Mild is less than 50% stenosis. Moderate is 50-69% stenosis. Severe is 70% to 99% stenosis. Total occlusion is no detectable patent lumen.
[2025-05-05] MEDS: iohexol 350 mg/mL 500 mL Btl (per mL) IV (19:46)
--- NOTE | 2025-05-05 20:10 | W.ED.NEUROSD ---
HPI - Neuro Symptoms/Deficit General: Chief Complaint: Neuro Symptoms/Deficit Stated Complaint: SYNCOPE History of Present Illness: Patient is a 64-year-old female who presents after a syncopal episode at home. She reports that she was talking to her niece on the phone when she began feeling sweaty. She moved from her couch to a chair under a fan because she felt hot but could not cool down. She continued to sweat profusely and then has no memory of subsequent events. Her found her and presumably called EMS. The patient denies any preceding chest pain. She currently reports facial tightness, difficulty opening her jaw, and facial numbness. She denies any history of falls and does not use assistive devices. Blood glucose was checked and reported as 82 mg/dL at the facility, though there was mention of a previous reading of 117. Related Data Home Medications ?Medication ?Instructions ?Recorded ?Confirmed aspirin 325 mg tablet 325 mg PO QAM 03/03/20 04/15/25 loratadine 10 mg tablet 10 mg PO QAM 03/03/20 04/15/25 omeprazole 20 mg capsule,delayed 20 mg PO QAM 03/03/20 04/15/25 release Previous Rx's ?Medication ?Instructions ?Recorded lisinopril 10 mg tablet See Rx Instructions .Route 05/23/24 .COMPLEX #90 tabs fluconazole 150 mg tablet 150 mg PO DAILY 3 days #11 tabs 06/15/24 miconazole nitrate 2 % topical 1 applic topical BID PRN rash #30 06/15/24 cream grams polyethylene glycol 3350 17 17 g PO DAILY #510 grams 06/16/24 gram/dose oral powder (Miralax) clamshell brace #1 ea 06/22/24 cuff and collar #1 ea 06/22/24 Bone growth stimulator, left #1 ea 09/04/24 humerus Bone Growth Stimulator, left #1 ea 10/29/24 humerus Humeral fracture brace, left #1 ea 10/29/24 Bone growh stimulator #1 ea 12/13/24 nystatin 100,000 unit/gram topical 1 applic topical BID #60 grams 02/04/25 powder bupropion HCl 100 mg tablet 200 mg (2 x 100 mg) PO QAM 30 days 02/19/25 #60 tabs citalopram 40 mg tablet 40 mg PO BEDTIME #30 tabs 02/19/25 atorvastatin 20 mg tablet 20 mg PO BEDTIME #90 tabs 04/22/25 Allergies Allergy/AdvReac Type Severity Reaction Status Date / Time Sulfa (Sulfonamide Allergy HIVES Verified 04/15/25 08:42 Antibiotics) nitrofurantoin (From AdvReac SHORTNESS Verified 04/15/25 08:42 Macrobid) OF BREATH [facility] PFSH: Medical History (Updated 05/05/25 @ 23:06 by Pineda Fox DO) History of CVA (cerebrovascular accident) Left Frontoparietal - 12/2019 - Affected memory and math Psychiatric care Anxiety 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) History of hiatal hernia History of DVT (deep vein thrombosis) Hypertension History of diverticulitis History of TIA (transient ischemic attack) Surgical History 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 Hx of hysterectomy 03/2017 - No cancer History of delivery 1994 History of hysteroscopy Family History Father Glaucoma Sister Morquio syndrome Connective tissue disease without genetic confirmation Brother CAD (coronary artery disease), Onset Age: 48 at age 48 with heart issues/electrolyte issues Unknown Cancer colon cancer Social History Smoking and tobacco/nicotine status: never used tobacco/nicotine Quit status (tobacco/nicotine): has quit using Year quit tobacco: 03/2021 Alcohol intake: never Substance/Drug Use: never NIH stroke score NIHSS: Level Of Consciousness - 1a: 0 Level Of Consciousness Questions - 1b: Both Correct Level Of Consciousness Commands - 1c: Both Correct Best Gaze - 2: Normal Visual Talbert - 3: No Visual Loss Facial Palsy - 4: Normal Motor Arm Right - 5: Drift Motor Arm Left - 5: No Drift Motor Leg Right - 6: No Drift Motor Leg Left - 6: Drift Limb Ataxia - 7: Present In One Limb Sensory - 8: Normal Best Language - 9: No Aphasia Dysarthia - 10: Normal Extinction And Inattention - 11: 0 Score: Total Score: 3 Physical Exam Const: GENERAL APPEARANCE: cooperative, anxious, ill appearing (Mild) and diaphoretic NUTRITIONAL APPEARANCE: obese HENMT: COMMON NORMALS: normocephalic and atraumatic HEAD & SCALP: normocephalic and atraumatic FACE & SINUS: normal facial exam and face symmetric Eye: COMMON NORMALS: Equal, round and reactive pupils present, EOMs intact bilaterally and conjunctivae normal CONJUNCTIVA: Yes conjunctivae normal PUPIL: Yes Equal, round and reactive pupils present Neck/C-Spine: GENERAL: Yes trachea midline Chest: CHEST: Yes Symmetrical chest wall rise Resp: EFFORT & INSPECTION: Yes symmetric chest movement GI: COMMON NORMALS: Normal to inspection, nondistended, normoactive bowel sounds present and Soft to palpation PALPATION: Yes Soft to palpation Extremity: COMMON NORMALS: capillary refill normal and no pedal edema Neuro: PEARL COMA SCALE: document GCS findings Pearl coma scale eye opening: Spontaneous Mauldin coma scale verbal response: Orientated Pearl coma scale motor response: Obey commands Pearl coma scale total score: 15 Psych: COMMON NORMALS: mental status grossly normal Course Vital Signs: Vital signs: Vital Signs Temperature 97.5 F L 05/05/25 19:35 Pulse Rate 72 05/05/25 23:14 Respiratory Rate 17 05/05/25 23:04 Blood Pressure 104/59 05/05/25 23:14 Pulse Oximetry 96 05/05/25 23:14 Oxygen Delivery Me thod Room Air 05/05/25 22:43 MDM - Neuro Symptoms/Deficit Medical Decision Making NIH score is a 3. Symptoms do not localize. She has some ataxia that is mild. She has mild right upper extremity weakness, with left lower extremity weakness. No facial weakness. No dysarthria or aphasia currently. CT head is negative. CTA is pending. Labs are pending. CBC and BMP are nonactionable. Chest x-ray is nonacute. Head CT is negative. CTA shows no critical stenosis. Patient is feeling much better. She is walked without assistance to the emergency department. I believe hydration helped. Her drug screen is positive for marijuana. This may be a culprit. With improvement in her symptoms, she is stable for discharge. She knows to return for return of symptoms. Lab Data 05/05/25 20:33 05/05/25 20:33 Radiology Impressions Chest X-Ray 05/05/25 19:43 IMPRESSION: No acute findings. Head CT 05/05/25 19:43 IMPRESSION: No acute intracranial abnormality. ASSESSMENT: ASPECTS ([place] Stroke Program Early CT Score) is 10. ADDENDUM: 05/05/252029 THIS REPORT CONTAINS FINDINGS THAT MAY BE CRITICAL TO PATIENT CARE. The findings were verbally communicated via telephone conference at 8:28 PM CDT on 05/05/2025 with PINEDA FOX. The findings were acknowledged and understood. Head/Neck CTA 05/05/25 19:43 IMPRESSION: No large vessel stenosis or occlusion. IMPRESSION: No acute vascular abnormality. REFERENCES: NASCET CRITERIA. The degree of stenosis in the cervical segment of the internal carotid artery is based on NASCET criteria. Normal is no stenosis. Mild is less than 50% stenosis. Moderate is 50-69% stenosis. Severe is 70% to 99% stenosis. Total occlusion is no detectable patent lumen. ADDENDUM: 05/05/252029 THIS REPORT CONTAINS FINDINGS THAT MAY BE CRITICAL TO PATIENT CARE. The findings were verbally communicated via telephone conference at 8:28 PM CDT on 05/05/2025 with PINEDA FOX. The findings were acknowledged and understood. Laboratory Results WBC 11.18 10^3/uL (3.29-11.43) 05/05/25 20:33 RBC 4.99 10^6/uL (3.85-5.65) 05/05/25 20:33 Hgb 14.60 g/dL (11.27-16.99) 05/05/25 20:33 Hct 45.0 % (36-47) 05/05/25 20:33 MCV 90.2 fl (85-98) 05/05/25 20:33 MCH 29.3 pg (27-33) 05/05/25 20:33 MCHC 32.4 g/dL (30-55) 05/05/25 20:33 RDW 14.5 % (12.1-15.1) 05/05/25 20:33 Plt Count 417 10^3/cmm (157-399) H 05/05/25 20:33 MPV 9.9 fL (7.4-10.4) 05/05/25 20:33 Neut % (Auto) 60.5 % 05/05/25 20:33 Lymph % (Auto) 25.5 % 05/05/25 20:33 [place] % (Auto) 10.2 % 05/05/25 20:33 Eos % (Auto) 2.2 % 05/05/25 20:33 Baso % (Auto) 1.3 % 05/05/25 20:33 Neut # (Auto) 6.77 10^3/uL (1.8-7.7) 05/05/25 20:33 Lymph # (Auto) 2.9 10^3/uL (0.8-4.8) 05/05/25 20:33 [place] # (Auto) 1.1 10^3/uL (0.2-0.9) H 05/05/25 20:33 Eos # (Auto) 0.3 10^3/uL (0.0-0.8) 05/05/25 20: Baso # (Auto) 0.1 10^3/uL (0.0-0.1) 05/05/25 20:33 Nucleated RBC % (auto) 0 % 05/05/25 20:33 Nucleated RBCs # 0.0 /100WBC 05/05/25 20:33 PT 13.30 SECONDS (12.1-14.9) 05/05/25 20:33 INR 0.94 (0.8-1.2) 05/05/25 20:33 APTT 29.7 SECONDS (23.9-36.7) 05/05/25 20:33 Sodium 137 mmol/L (136-145) 05/05/25 20:33 Potassium 3.9 mmol/L (3.5-5.1) 05/05/25 20:33 Chloride 105 mmol/L (98-107) 05/05/25 20:33 Carbon Dioxide 21 mmol/L (22-29) L 05/05/25 20:33 Anion Gap 14.9 (5-19) 05/05/25 20:33 BUN 15 mg/dL (8-23) 05/05/25 20:33 Creatinine 0.6 mg/dL (0.5-0.9) 05/05/25 20:33 GFR Calculation 100.6 mL/min (90-130) 05/05/25 20:33 Glucose 78 mg/dL (65-115) 05/05/25 20:33 Calculated Osmolality 284 mOsm/kg (285-295) L 05/05/25 20:33 Calcium 9.1 mg/dL (8.5-10.5) 05/05/25 20:33 Total Bilirubin 0.8 mg/dL (0.15-1.2) 05/05/25 20:33 AST 41 U/L (0-32) H 05/05/25 20:33 ALT 43 U/L (0-33) H 05/05/25 20:33 Alkaline Phosphatase 574 U/L (35-105) H 05/05/25 20:33 Troponin T Baseline 8 ng/L (0-10) 05/05/25 20:33 Troponin T 120 Minute 9.78 ng/L (0-10) 05/05/25 22:15 Delta Troponin T 1.78 ABS# (0-10) 05/05/25 22:15 Total Protein 7.2 g/dL (6.6-8.7) 05/05/25 20: Albumin 3.5 g/dL (3.5-5.2) 05/05/25 20:33 Globulin 3.7 g/dL (1.3-4.6) 05/05/25 20:33 Urine Color Yellow (Yellow) 05/05/25 20:21 Urine Appearance Clear (CLEAR) 05/05/25 20:21 Urine pH 8.5 (5-7) A 05/05/25 20:21 Ur Specific [place] 1.034 (1.005-1.030) H 05/05/25 20:21 Urine Protein Negative (Negative) 05/05/25 20:21 Urine Glucose (UA) Negative (Normal) 05/05/25 20:21 Urine Ketones 1+ (Negative) H 05/05/25 20:21 Urine Blood Negative (Negative) 05/05/25 20:21 Urine Nitrate Negative (Negative) 05/05/25 20:21 Urine Bilirubin Negative (Negative) 05/05/25 20:21 Urine Urobilinogen 2.0 mg/dL (Negative) H 05/05/25 20:21 Ur Leukocyte Esterase Negative (Negative) 05/05/25 20:21 Urine RBC 0-2 /hpf (0-2) 05/05/25 20:21 Urine WBC 0-5 /hpf (0-5) 05/05/25 20:21 Ur Squamous Epith Cells 0-5 /hpf (0-5) 05/05/25 20:21 Amorphous Sediment Not Reportable 05/05/25 20:21 Urine Bacteria None seen /hpf (NONE) 05/05/25 20:21 Hyaline Casts 1.21 /lpf 05/05/25 20:21 Urine Opiates Screen Negative ng/mL (Negative) 05/05/25 20:21 Ur Barbiturates Screen Negative ng/mL (Negative) 05/05/25 20:21 Ur Phencyclidine Scrn Negative ng/mL (Negative) 05/05/25 20:21 Ur Amphetamines Screen Negative ng/mL (Negative) 05/05/25 20:21 U Benzodiazepines Scrn Negative ng/mL (Negative) 05/05/25 20:21 Urine Cocaine Screen Negative ng/mL (Negative) 05/05/25 20:21 U Marijuana (THC) Screen Positive ng/mL (Negative) H 05/05/25 20:21 Ethyl Alcohol < 10 mg/dL (0-10) 05/05/25 20:33 All radiology interpretation(s) finalized by discharge Discharge Plan Discharge Patient Disposition: Home Clinical Impression: Near syncope Condition: Stable Prescriptions: No Action loratadine 10 mg tablet 10 mg PO QAM omeprazole 20 mg capsule,delayed release(DR/EC) 20 mg PO QAM aspirin 325 mg tablet 325 mg PO QAM (DME) clamshell brace See Rx Instructions .Route .MEDSUPPLY Qty: 1 0RF Rx Instructions: As directed (DME) cuff and collar See Rx Instructions .Route .MEDSUPPLY Qty: 1 0RF Rx Instructions: As directed (DME) Humeral fracture brace, left See Rx Instructions .Route .MEDSUPPLY Qty: 1 0RF Rx Instructions: As directed (DME) Bone Growth Stimulator, left humerus See Rx Instructions .Route .MEDSUPPLY Qty: 1 0RF Rx Instructions: As directed miconazole nitrate 2 % cream 1 applic topical BID PRN (Reason: rash) Qty: 30 2RF fluconazole 150 mg tablet 150 mg PO DAILY 3 Days Qty: 11 0RF Rx Instructions: take 1 tab poqd for 3d then 1 tab q week for total of 8 weeks (DME) Bone growth stimulator, left humerus See Rx Instructions .Route .MEDSUPPLY Qty: 1 0RF Rx Instructions: As directed citalopram 40 mg tablet 40 mg PO BEDTIME Qty: 30 6RF bupropion HCl 100 mg tablet 200 mg PO QAM 30 Days Qty: 60 6RF lisinopril 10 mg tablet See Rx Instructions .ROUTE .COMPLEX Qty: 90 3RF Dose Instruction: Take 1 tablet by mouth once daily Rx Instructions: Take 1 tablet by mouth once daily (DME) Bone growh stimulator See Rx Instructions .Route .MEDSUPPLY Qty: 1 0RF Rx Instructions: As directed nystatin 100,000 unit/gram powder 1 applic topical BID Qty: 60 3RF atorvastatin 20 mg tablet 20 mg PO BEDTIME Qty: 90 3RF polyethylene glycol 3350 [Miralax] 17 gram/dose powder 17 g PO DAILY Qty: 510 0RF Rx Instructions: Take 1 scoop daily while taking pain medications. Discharge Orders: Discharge ED (Routine); Ordered 05/05/25 Ordered By: Pineda Fox Referrals: Brady Mckeon MD [Primary Care Provider, Family Practice] - 4-7 days Patient Instructions: Near Syncope (ED), Opioid Safety, Pain Management, Patient Portal & Jazz Instructions Activity Restrictions/Additional Instructions: Return for repeated episodes of syncope or nearly passing out, any chest discomfort, shortness of breath, mental status changes, or other concerns. Laboratory testing as well as imaging of your head did not show a specific cause of your symptoms at home. Call your doctor in the morning for a follow-up appointment. Further outpatient testing may be needed. Print Language: Syriac Coding Level of Care Code ED Lining Setter for Andrea Young
--- OUTSIDE RECORDS SUMMARY | 2025-05-05 20:15 | XMS_ITS | Encounter Summary ---
Author Organization [facility] Address [address] [place] [address] Care Team Providers Care Dye Tub Tender Name Role Phone Brady Mckeon MD Primary Care Provider [phone] Encounter Details Date Type Department Care Team (Latest Contact Info) Description 08/28/1998 Outpatient Historical [facility] CONSULTANT Cricket Anaya MD [address] [place] [phone] Other disorder of menstruation and other abnormal bleeding from female genital tract (Primary Dx) Social History Tobacco Use Types Packs/Day Years Used Date Smoking Tobacco: Never Assessed Comments Unknown Sex and Gender Information Value Date Recorded Sex Assigned at Not on file 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
--- OUTSIDE RECORDS SUMMARY | 2025-05-05 20:15 | XMS_ITS | Encounter Summary ---
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
--- OUTSIDE RECORDS SUMMARY | 2025-05-05 20:15 | XMS_ITS | Encounter Summary ---
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 BLOCKER Cricket Anaya MD [address] [place] [phone] Other abscess of vulva (Primary Dx) Social History Tobacco Use Types Packs/Day Years Used Date Smoking Tobacco: Never Assessed Comments Unknown Sex and Gender Information Value Date Recorded Sex Assigned at Not on file 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
--- OUTSIDE RECORDS SUMMARY | 2025-05-05 20:15 | XMS_ITS ---
Author Organization [facility] Address [address] [place] [address] Care Team Providers Care Quilter Fixer Name Role Phone Brady Mckeon MD Primary Care Provider + Active Problems Patient Care Coordination No te Formatting of this note is d ifferent from the original. BMT Inpatient Care Coordination Overview Diagnosis Floor [address] Treatment Plan Clinical Trial Reason for Admission Lymphocytosis Transplant/IEC Planning BMT/IEC Plan HLA typing/IDMs Insurance Approvals/Issues Discharge Planning Anticipated Discharge Date Patient Education Completed Issue to be Resolved Before Discharge Discharge Disposition Requests Sent to Case Management and/or Medical Assistants Post-Discharge Follow-Up Living Situation/Distance from [facility] Near [facility] Caregiver Spouse Lab/Transfusion Frequency Phone: Fax: Venous Access & Care peripheral Local Oncologist Contact Phone: Fax: Post-Discharge Office Visit (H30) Miscellaneous Notes: 61 year old F with history of stroke, HENDERSON cirrhosis, depression, traumatic ruptured spleen s/p splenectomy who presents as transfer from [facility] for work-up of lymphocytosis Problem Noted Date Diagnosed Date CMV (cytomegalovirus) infection 01/04/2022 CMV colitis 01/04/2022 Hyponatremia 01/04/2022 Moderate malnutrition 12/30/2021 ABBY (acute kidney injury) 12/30/2021 Lymphocytosis 12/30/2021 Diarrhea 12/30/2021 Transaminitis 12/30/2021 History of stroke 12/30/2021 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 Past Treatment and Therapy Plans BMT/ONC IP BLOOD PRODUCTS Plan Name Start Date Discontinue Date Treatment Medications Discontinue Reason Plan Provider COVID-19 - BMT (CMV POSITIVE) ADULT BLOOD AND PLATELET ADMINISTRATION FOR INPATIENT 01/06/2022 01/08/2022 No medications scheduled. Patient Discharged Diogo Sanchez MD Lifetime Dose Tracking * Chemical Lifetime Dose Automatic Entry Manual Entr y Fluoro Time 0.4 minutes 0.4 minutes 0 minutes Air kerma at the reference point (Ka,r) 4 mGy 4 mGy 0 mGy
--- OUTSIDE RECORDS SUMMARY | 2025-05-05 20:15 | XMS_ITS | Clinical Summary ---
Author Organization [facility] Address [address] [place] [address] Care Team Providers Care Med Surg Rn Name Role Phone Brady Mckeon MD Primary Care Provider + Allergies Active Allergy Reactions Criticality Noted Date Comments Nitrofurantoin Shortness of breath High 12/29/2021 Sulfa (Sulfonamide Antibiotics) Hives Medium 12/07 Medications aspirin 325 mg tablet Take 325 mg by mouth daily Active loratadine 10 mg capsule Take by mouth daily Active omeprazole (PriLOSEC) 20 mg capsule Take 20 mg by mouth daily Active atorvastatin (LIPITOR) 20 mg tablet Take 20 mg by mouth daily Active buPROPion (WELLBUTRIN) 75 mg tablet Take 75 mg by mouth daily Active citalopram (CeleXA) 40 mg tablet Take 0.5 tablets (20 mg total) by mouth daily 2 Active Additional Information Patient taking differently: 40 mgoral Daily, Reported on 02/10/2022 folic acid (FOLVITE) 1 mg tablet Take 1 tablet (1 mg total) by mouth daily 30 tablet 2 Active furosemide (LASIX) 40 mg tablet Take 40 mg by mouth daily 2 Active lisinopriL (PRINIVIL,ZESTR IL) 20 mg tablet Take 20 mg by mouth daily Active dexAMETHasone (DECADRON) 1 mg tablet Take 1 (1mg ) tablet when directed Take 1 mg at 11 pm, go to the lab the next morning by 8am 1 tablet 2 Active Active Problems Patient Care Coordination No te Formatting of this note is d ifferent from the original. BMT Inpatient Care Coordination Overview Diagnosis Floor [address]382 Treatment Plan Clinical Trial Reason for Admission Lymphocytosis Transplant/IEC Planning BMT/IEC Plan HLA typing/IDMs Insurance Approvals/Issues Discharge Planning Anticipated Discharge Date Patient Education Completed Issue to be Resolved Before Discharge Discharge Disposition Requests Sent to Case Management and/or Medical Assistants Post-Discharge Follow-Up Living Situation/Distance from [facility] Near [facility] Caregiver Spouse Lab/Transfusion Frequency Phone: Fax: Venous Access & Care peripheral Local Oncologist Contact Phone: Fax: Post-Discharge Office Visit (H30) Miscellaneous Notes: 61 year old F with history of stroke, HENDERSON cirrhosis, depression, traumatic ruptured spleen s/p splenectomy who presents as transfer from [facility] for work-up of lymphocytosis Problem Noted Date Diagnosed Date CMV (cytomegalovirus) infection 01/04/2022 CMV colitis 01/04/2022 Hyponatremia 01/04/2022 Moderate malnutrition 12/30/2021 ABBY (acute kidney injury) 12/30/2021 Lymphocytosis 12/30/2021 Diarrhea 12/30/2021 Transaminitis 12/30/2021 History of stroke 12/30/2021 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 Surgical History Surgery Date Site/Laterality Comments HYSTERECTOMY SPLENECTOMY CENTRAL LINE PLACEMENT > 5 YEARS 01/01/2022 N/A Medical History Medical History Date Comments Stroke (HCC) Cancer (HCC) Social History Tobacco Use Types Packs/Day Years Used Date Smoking Tobacco: Former Personal Safety Answer Date Recorded Getting School Help Needed Not on file 10/08 Comments No Sex and Gender Information Value Date Recorded Sex Assigned at Not on file Legal Sex Female 10:29 AM CDT Gender Identity Not on file Sexual Orientation Not on file Obstetrics History Last Filed Vital Signs Vital Sign Reading Time Taken Comments Blood Pressure 132/80 02/10/2022 1:42 PM CDT Pulse 60 02/10/2022 1:42 PM CDT Temperature 36.5 C (97.7 F) 02/10/2022 1:42 PM CDT Respiratory Rate 18 01/08/2022 6:39 AM CDT Oxygen Saturation 99% 01/08/2022 6:39 AM CDT Inhaled Oxygen Concentration - - Weight 100.7 kg (222 lb) 02/10/2022 1:42 PM CDT Height 165.1 cm (5' 5 ) 02/10/2022 1:42 PM CDT Body Mass Index 36.94 02/10/2022 1:42 PM CDT Plan of Treatment Not on file Advance Directives For more information, please contact: [phone] * Full Code (Latest Code Status on File) Date Activated Date Inactivated Comments 12/29/2021 6:27 PM 01/08/2022 3:36 PM Care Teams Med Surg Rn Relationship Specialty [place] [address] [place] [phone] PCP - General Family Practice 01/03/22
--- OUTSIDE RECORDS SUMMARY | 2025-05-05 20:15 | XMS_ITS | Encounter Summary ---
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 Cricket Anaya MD [address] [place] [phone] Gynecologic examination (Primary Dx) Social History Tobacco Use Types Packs/Day Years Used Date Smoking Tobacco: Never Assessed Comments Unknown Sex and Gender Information Value Date Recorded Sex Assigned at Not on file 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
--- OUTSIDE RECORDS SUMMARY | 2025-05-05 20:15 | XMS_ITS | Encounter Summary ---
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 Cricket Anaya MD [address] [place] [phone] Excessive menstruation (Primary Dx) Social History Tobacco Use Types Packs/Day Years Used Date Smoking Tobacco: Never Assessed Comments Unknown Sex and Gender Information Value Date Recorded Sex Assigned at Not on file Legal Sex Female 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
--- OUTSIDE RECORDS SUMMARY | 2025-05-05 20:15 | XMS_ITS | Encounter Summary ---
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 Cricket Anaay MD [address] [place] [phone] Excessive menstruation (Primary Dx) Social History Tobacco Use Types Packs/Day Years Used Date Smoking Tobacco: Never Assessed Comments Unknown Sex and Gender Information Value Date Recorded Sex Assigned at Not on file Legal Sex Female 3:21 AM PATIENT CASE MANAGER Gender Identity Not on file Sexual Orientation Not on file documented as of this encounter Plan of Treatment Not on file documented as of this encounter Visit Diagnoses Diagnosis Excessive menstruation- Primary Excessive or frequent menstruation documented in this encounter Care Teams Racing Board Marker Relationship Specialty Start Date End Date Brady Mckeon MD [address] [place] [phone] PCP - General Family Practice 03/08/17 documented as of this encounter
--- OUTSIDE RECORDS SUMMARY | 2025-05-05 20:15 | XMS_ITS | Encounter Summary ---
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 Cricket Anaya MD [address] [place] [phone] Gynecologic examination (Primary Dx) Social History Tobacco Use Types Packs/Day Years Used Date Smoking Tobacco: Never Assessed Comments Unknown Sex and Gender Information Value Date Recorded Sex Assigned at Not on file Legal Sex Female 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
--- OUTSIDE RECORDS SUMMARY | 2025-05-05 20:16 | XMS_ITS | Encounter Summary ---
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 Cricket Anaya MD [address] [place] [phone] Other disorder of menstruation and other abnormal bleeding from female genital tract (Primary Dx) Social History Tobacco Use Types Packs/Day Years Used Date Smoking Tobacco: Never Assessed Comments Unknown Sex and Gender Information Value Date Recorded Sex Assigned at Not on file Legal 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
--- OUTSIDE RECORDS SUMMARY | 2025-05-05 20:16 | XMS_ITS | Clinical Summary ---
Author Organization [facility] Address [address] [place] [address] Phone Care Team Providers Care Meters Superintendent Name Role Phone Brady Mckeon MD Primary Care Provider [phone] Allergies Active Allergy Reactions Criticality Noted Date Comments Nitrofurantoin Monohyd/M-Cryst Swelling High 02/22 Sulfa (Sulfonamide Antibiotics) Hives High 02/05 Medications lisinopril (PRINIVIL) 10 mg tablet Take 10 mg by mouth daily. Active omeprazole (PriLOSEC) 20 mg Capsule, Delayed Release(E.C.) Take 20 mg by mouth daily. Active hydrOXYzine HCl (ATARAX) 10 mg tablet Take 10 mg by mouth Continuous as needed for Itching. Active IBUPROFEN ORAL Take by mouth. Active oxyCODONE-aceta minophen (PERCOCET) 5-325 mg tablet Take 1 Tablet by mouth every 4 hours as needed for Pain. Max Daily Amount: 6 Tablets 30 Tablet 7 Active LORATADINE ORAL Take by mouth. Active Active Problems Problem Noted Date Diagnosed Date Morbid obesity with BMI of 45.0-49.9, adult 02/05 Benign hypertension 02/22/2017 Cigarette dependence 02/22/2017 Resolved Problems Problem Noted Date Diagnosed Date Resolved Date Complex endometrial hyperplasia with atypia 02/22/2017 04/05/2017 Immunizations Immunization Administration Dates Next Due Influenza Seasonal Unspecified Formulation IM Family History Medical History Relation Name Comments Heart Disease Brother Hypertension Brother No Known Problems Daughter Cancer Father Diabetes Father Hypertension Father Colon Cancer Maternal Grandfather Arrhythmia Maternal Grandmother Parkinson's Disease Maternal Grandmother Stroke Paternal Grandfather No Known Problems Paternal Grandmother Heart Disease Sister Hypertension Sister Other Sister Relation Name Status Comments Brother Daughter Alive Father Maternal Grandfather Maternal Grandmother Mother Alive Paternal Grandfather Paternal Grandmother Sister Alive Social History Tobacco Use Types Packs/Day Years Used Date Smoking Tobacco: Every Day Cigarettes 0.3 30 Smokeless Tobacco: Never Tobacco Cessation:Ready to Q uit: No Comments:Plan to quit-cutting down. 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 Gender Identity Not on file Sexual Orientation Not on file Last Filed Vital Signs Vital Sign Reading Time Taken Comments Blood Pressure 115/72 05/03/2017 1:00 PM CDT Pulse 68 05/03/2017 1:00 PM CDT Temperature 36.4 C (97.6 F) 05/03/2017 1:00 PM CDT Respiratory Rate 19 04/05/2017 3:45 PM CDT Oxygen Saturation 97% 05/03/2017 1:00 PM CDT Inhaled Oxygen Concentration - - Weight 124.8 kg (275 lb 3.2 oz) 05/03/2017 1:00 PM CDT Height 167.6 cm (5' 6 ) 05/03/2017 1:00 PM CDT Body Mass Index 44.42 05/03/2017 1:00 PM CDT Plan of Treatment Health Maintenance Due Date Last Done Comments Pre-Diabetes and Diabetes Screening 1960 DTAP/TDAP/TD VACCINES (1 - Tdap) 1979 BREAST CANCER SCREENING 2000 COLORECTAL SCREENING 2005 Colorectal Cancer Screening 2005 FIT-DNA Q 3 years 2005 FIT/FOBT Q 1 year 2005 Flex Sig/CT Colonography Q 5 years 2005 ZOSTER VACCINE (1 of 2) 2010 RSV VACCINE (60+ or ) (1 - Risk 60-74 years 1-dose series) 2020 INFLUENZA VACCINE (#1) 2025 05/18/2016 Insurance EC PPO Advance Directives For more information, please contact: [phone] * Full Code (Latest Code Status on File) Date Activated Date Inactivated Comments 03/22/2017 10:45 AM 03/22/2017 8:27 PM * Full Code Date Activated Date Inactivated Comments 03/22/2017 7:00 AM 03/22/2017 10:45 AM * Full Code Date Activated Date Inactivated Comments 03/22/2017 5:26 AM 03/22/2017 7:00 AM Care Teams Meters Superintendent Relationship Specialty Start Date End Date Brady Mckeon MD [address] [place] [phone] PCP - General Family Practice 03/08/17
--- OUTSIDE RECORDS SUMMARY | 2025-05-05 20:16 | XMS_ITS | Clinical Summary ---
Author Organization [facility] Address [address] [place] [address] Phone Care Team Providers Care Cdl Driver Name Role Phone Brady Mckeon MD Primary Care Provider [phone] Allergies Active Allergy Reactions Criticality Noted Date Comments Nitrofurantoin Monohyd/M-Cryst Swelling High 02/22 Sulfa (Sulfonamide Antibiotics) Hives High 02/05 Medications aspirin (ECOTRIN EC) 325 mg Tablet, Delayed Release (E.C.) Take 325 mg by mouth daily. Active loratadine (CLARITIN) 10 mg tablet Take 10 mg by mouth daily. Active lisinopriL (PRINIVIL) 20 mg tablet Take 20 mg by mouth daily. Active atorvastatin (LIPITOR) 40 mg tablet Take 40 mg by mouth daily. Active citalopram (CeleXA) 20 mg tablet Take 60 mg by mouth daily. Active omeprazole (PriLOSEC) 20 mg Capsule, Delayed Release(E.C.) Take 20 mg by mouth daily. 02/22/2017 Active LORATADINE ORAL Take by mouth. 05/03/2017 Active IBUPROFEN ORAL Take by mouth. 02/22/2017 Active BUPROPION HCL ORAL Take by mouth. Active Active Problems Problem Noted Date Diagnosed Date Splenic laceration 03/13/2021 Blunt abdominal trauma 03/13/2021 Cigarette dependence 02/22/2017 Morbid obesity with BMI of 45.0-49.9, adult 02/05 Benign hypertension 02/22/2017 Resolved Problems Problem Noted Date Diagnosed Date Resolved Date Complex endometrial hyperplasia with atypia 02/22/2017 04/05/2017 Immunizations Immunization Administration Dates Next Due (ACTHIB/HIBERIX)(2 MOS-5 YRS /6 WKS-4 YRS) HAEMOPHILUS INFLUENZAE TYPE B VACCINE (HIB), PRP-T CONJUGATE, 4 DOSE, 0.5 ML IM 03/19/2021 (BEXSERO)(10-25 YR) MENINGOC OCCAL RECOMBIANT PROTEIN AND OUTER MEMBRANE VESICLE VACCINE, SEROGROUP B MENB-4C, 2 DOSE IM 03/19/2021 (MENVEO)(1 VIAL/2 VIAL)(10-5 5 YRS/2 MOS-55 YRS) MENINGOCOCCAL ACYW OLIGOSACCHARIDE CONJUGATE VACCINE, (PF) IM 03/19/2021 (PREVNAR 13)(6 WKS UP) PNEUM OCOCCAL CONJUGATE (PCV13) 0.5 ML, IM 03/19/2021 Influenza Seasonal Unspecified Formulation IM Family History [...] Packs/Day Years Used Date Smoking Tobacco: Former Cigarettes Smokeless Tobacco: Never Tobacco Cessation:Counseling Given: Not Answered Comments:Quit smoking: Plan to quit-cutting down. Alcohol Use Standard Drinks/Week Comments Not Currently 0 (1 standard drink = 0.6 oz pur e alcohol) Feeling Safe Answer Date Recorded Are you in a relationship wi th someone who hurts you emotionally and/or physically? No 01/07/2023 Comments No Sex and Gender Information Value Date Recorded Sex Assigned at Not on file Legal Sex Female 1:35 PM KILN TESTER Gender Identity Not on file Sexual Orientation Not on file Last Filed Vital Signs Vital Sign Reading Time Taken Comments Blood Pressure 136/75 01/07/2023 9:30 AM CDT Pulse 93 04/02/2021 10:21 AM CDT Temperature 36.4 C (97.5 F) 01/07/2023 9:30 AM CDT Respiratory Rate 14 01/07/2023 9:30 AM CDT Oxygen Saturation 95% 01/07/2023 9:30 AM CDT Inhaled Oxygen Concentration - - Weight 102.8 kg (226 lb 9.6 oz) 01/07/2023 9:30 AM CDT Height 167.6 cm (5' 6 ) 01/07/2023 9:30 AM CDT Body Mass Index 36.57 01/07/2023 9:30 AM CDT Plan of Treatment Health Maintenance Due [...] series) 2020 INFLUENZA VACCINE (#1) 2025 05/18/2016 Medical Devices Implanted Type Area Type Mapper Device Identifier Shelf Expiration Date Model / Serial / Lot Patch Evarrest Fibrin Sealant 2x4in [id number] - [id number] Implanted:Qty: 1 on 03/12/2021 by Rafia Stanton MD at [facility] Sealant N/A: Abdomen [employer] [id number] 11/02/2022 [id number] / [id number] Insurance MEDICARE PART A AND B Advance Directives For more information, please contact: [phone] * Full Code (Latest Code Status on File) Date Activated Date Inactivated Comments 03/12/2021 8:27 AM 03/19/2021 8:25 PM Care Teams Cdl Driver Relationship Specialty Start Date End Date Brady Mckeon MD [facility] [place] [phone] PCP - General Family Practice 03/08/17
--- OUTSIDE RECORDS SUMMARY | 2025-05-05 20:16 | XMS_ITS | Encounter Summary ---
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 Cricket Anaya MD [address] [place] [phone] Urinary tract infection, site not specified (Primary Dx) Social History Tobacco Use Types Packs/Day Years Used Date Smoking Tobacco: Never Assessed Comments Unknown Sex and Gender Information Value Date Recorded Sex Assigned at Not on file Legal 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
--- OUTSIDE RECORDS SUMMARY | 2025-05-05 20:16 | XMS_ITS | Encounter Summary ---
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 Cricket Anaya MD [address] [place] [phone] Excessive menstruation (Primary Dx) Social History Tobacco Use Types Packs/Day Years Used Date Smoking Tobacco: Never Assessed Comments Unknown Sex and Gender Information Value Date Recorded Sex Assigned at Not on file 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
[2025-05-05 20:37] LABS: Glucose Urine UA Negative (Normal); Nitrate Urine Negative (Negative)
--- NOTE | 2025-05-05 20:39 | ECG_ITS ---
[facility] Date: 2025-05-05 Pat Name: Shelly Schilling Department: Room: Gender: Female Astrobiologist: : 1960 Requested By: Pineda Abreu Order Number: [id number] Russell MD: Shahriar Corbin M.D. Measurements Intervals [place] Rate: 66 P: 82 MI: 193 QRS: 53 QRSD: 97 T: 60 QT: 448 QTc: 470 Interpretive Statements SINUS RHYTHM POSSIBLE LEFT ATRIAL ENLARGEMENT [-0.1mV P-WAVE IN V1/V2] No previous ECG available for comparison Electronically Signed On 05-06-2025 12:54:54 CDT by Shahriar Corbin M.D. [email or web address]
[2025-05-05 20:42] LABS: Add Urine Microscopic? YES
[2025-05-05 20:44] LABS: PCP Screen Urine Negative (Negative)
[2025-05-05 20:45] LABS: Hematocrit 45.0 % (36-47); Hemoglobin 14.60 g/dL (11.27-16.99); Mean Corpuscular HGB Conc 32.4 g/dL (30-55); Mean Corpuscular Hemoglobin 29.3 pg (27-33); Mean Corpuscular Volume 90.2 fl (85-98); Nucleated Red Blood Cells % 0 %; Platelet Count 417 10^3/cmm (157-399); Red Blood Count 4.99 10^6/uL (3.85-5.65); White Blood Count 11.18 10^3/uL (3.29-11.43)
[2025-05-05 21:00] LABS: INR 0.94 (0.8-1.2); Partial Thromboplastin Time 29.7 SECONDS (23.9-36.7); Prothrombin Time 13.30 SECONDS (12.1-14.9)
[2025-05-05 21:07] LABS: Specific Gravity, Urine 1.034 (1.005-1.030); UA Slide Review UA Slide Review Perf
[2025-05-05 21:08] LABS: Alanine Aminotransferase 43 U/L (0-33); Albumin Level 3.5 g/dL (3.5-5.2); Alcohol Level < 10 mg/dL (0-10); Alkaline Phosphatase 574 U/L (35-105); Anion Gap 14.9 (5-19); Aspartate Amino Transferase 41 U/L (0-32); Blood Urea Nitrogen 15 mg/dL (8-23); Calcium 9.1 mg/dL (8.5-10.5); Carbon Dioxide 21 mmol/L (22-29); Chloride 105 mmol/L (98-107); Creatinine Clr Calc Pharmacy 110.0174; Globulin 3.7 g/dL (1.3-4.6); Glucose 78 mg/dL (65-115); Osmolality Calculated 284 mOsm/kg (285-295); Potassium 3.9 mmol/L (3.5-5.1); Sodium 137 mmol/L (136-145); Total Protein 7.2 g/dL (6.6-8.7)
[2025-05-05 21:34] LABS: Troponin(5th) Baseline 8 ng/L (0-10)
[2025-05-05 22:44] LABS: Troponin 5 2HR 9.78 ng/L (0-10); Troponin 5 2HR Delta 1.78 ABS# (0-10)
== END 2025-05-05 23:39 | disposition home or self-care (01) ==
PROVIDERS: Emergency Provider Emergency Medicine; PCP Family Medicine
DX: R55 Syncope and collapse (principal); Z79.82 Long term (current) use of aspirin; Z87.891 Personal history of nicotine dependence; I10 Essential (primary) hypertension; Z86.73 Personal history of transient ischemic attack (TIA), and cerebral infarction without residual deficits
CPT/HCPCS: 36415; 36416; 70450; 70496; 70498; 71045; 80053; 80306; 80307; 81001; 82962; 84484; 85025; 85610; 85730; 93005; 99285; J7030

== ENCOUNTER 2025-05-17 07:29 | Outpatient (CLI) | payer MEDICARE, SELFPAY ==
--- NOTE | 2025-05-17 08:00 | NM_ITS ---
WS: [id number] NUCLEAR MEDICINE WHOLE BODY BONE SCAN HISTORY: Elevated Alk phos COMPARISON: 12/28/2021 TECHNIQUE: The patient was injected with 25.1 mCi of Technetium 99m HDP and serial whole-body scintigrams have been performed with anterior and posterior images. No evidence for metastatic disease in the osseous skeleton. There is very mild uptake at the AC joints from arthritis. Focal increased uptake in the mid LEFT humerus consistent with recently reported fracture. There is more intense but symmetric uptake bilaterally in the ankles and hindfeet. Additional increased uptake at the knees, greatest involving the RIGHT patellofemoral articulation. Normal soft tissue uptake. Normal renal uptake. Mild reversed S-shaped curvature thoracic and lumbar spines. Degenerative facet disease in the mid cervical spine. OR/NM bone scan whole body* [id number] IMPRESSION: 1. No metastatic disease to the osseous skeleton identified. 2. Increased uptake in the proximal LEFT humerus correlates with a healing fra cture which has been recently described. 3. Degenerative arthropathy at the ankles and hindfeet.
== END 2025-05-17 07:30 | disposition home or self-care (01) ==
PROVIDERS: PCP Family Medicine; Visit Provider Family Medicine
DX: R74.8 Abnormal levels of other serum enzymes (principal); G95.0 Syringomyelia and syringobulbia; M19.071 Primary osteoarthritis, right ankle and foot; M19.072 Primary osteoarthritis, left ankle and foot; M46.92 Unspecified inflammatory spondylopathy, cervical region; M41.35 Thoracogenic scoliosis, thoracolumbar region
CPT/HCPCS: 78306; A9561

== ENCOUNTER → 2025-05-23 07:43 | Day surgery (SDC) | payer MEDICARE, SELFPAY ==
[2025-05-23] VITALS (12 sets, daily range): BP systolic 92–135; BP diastolic 54–82; PULSE 73–93; RESP 11–18; TEMP 36.1–36.9; O2SAT 90–99; BMI 35.0
[2025-05-23] MEDS: acetaminophen 1,000 MG/100 ML PIGGYBACK 400 MG IV (08:15)
--- NOTE | 2025-05-23 09:31 | P.HPUD_ITS ---
Surgery/Procedure H&P Update DATE OF PROCEDURE: May 23, 2025 DATE H&P PERFORMED: 05/09/25 H&P UPDATE INFORMATION: I have reviewed H&P completed within last 30 days, I have examined patient prior to procedure, No changes to prior documentation, H&P is in [facility] EMR on date indicated and Risks and benefits of the procedure reviewed PREOP DIAGNOSIS: Nonunion left midshaft oblique humerus fracture PLANNED PROCEDURE: Operation Date: 05/23/25 10:25 Proposed Procedures p LEFT Open Reduction Internal Fixation Humeral Shaft Fracture(Left) - Mague Walters MD Related Problem List Diagnoses 1. Closed displaced comminuted fracture of shaft of left humerus with routine healing, subsequent encounter: Qualifiers: Encounter type: subsequent encounter Fracture morphology: comminuted Fracture alignment: displaced Fracture healing: with routine healing 2. 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
--- NOTE | 2025-05-23 09:40 | ANES.PREANE2 ---
Pre-Anesthetic Assessment Height/Weight: Height 1.68 m Weight 98.43 kg Temp Pulse Resp BP Pulse Ox O2 Del Method 98 F 74 18 135/82 97 Room Air 05/23/25 08:23 05/23/25 08:23 05/23/25 08:23 05/23/25 08:23 05/23/25 08:23 05/23/25 08:23 Preop Diagnosis: Nonunion left midshaft oblique humerus fracture Operation Date: 05/23/25 10: Proposed Procedures p LEFT Open Reduction Internal Fixation Humeral Shaft Fracture(Left) - Mague Walters MD Familial anesthetic complications: None Was Beta Luis F taken within 24 hours: N/A Was Clonidine taken within 24 hours: N/A Last intake: Intake Last Liquid Date 05/22/25 Last Liquid Time 20:00 Last Solid Date 05/22/25 Last Solid Time 20:00 Social No alcohol and No tobacco Exam alert, oriented x 3, clear to auscultation bilaterally and regular rate & rhythm CV/HEM Hypertension Neuropsych Cerebrovascular Accident and Seizure Anesthetic Plan ASA status: 3 Anesthesia: General and Regional (specify below) (post-op block) Risk of > 500 ml blood loss (7ml/kg in children): No Medications/Allergies Home Medications ?Medication ?Instructions ?Recorded ?Confirmed ?Last Taken ?Type aspirin 325 mg tablet 325 mg PO QAM 03/03/20 05/22/25 05/17/25 History loratadine 10 mg tablet 10 mg PO QAM 03/03/20 05/23/25 05/23/25 06:00 History omeprazole 20 mg capsule,delayed 20 mg PO QAM 03/03/20 05/22/25 05/22/25 History release clamshell brace #1 ea 06/22/24 05/09/25 Unknown Rx cuff and collar #1 ea 06/22/24 05/09/25 Unknown Rx Bone growth stimulator, left #1 ea 09/04/24 05/09/25 Unknown Rx humerus Bone Growth Stimulator, left #1 ea 10/29/24 05/09/25 Unknown Rx humerus Humeral fracture brace, left #1 ea 10/29/24 05/09/25 Unknown Rx Bone growh stimulator #1 ea 12/13/24 05/09/25 Unknown Rx nystatin 100,000 unit/gram topical 1 applic topical BID #60 grams 02/04/25 05/22/25 05/22/25 Rx powder bupropion HCl 100 mg tablet 200 mg (2 x 100 mg) PO QAM 30 days 02/19/25 05/23/25 05/23/25 06:00 Rx #60 tabs citalopram 40 mg tablet 40 mg PO BEDTIME #30 tabs 02/19/25 05/22/25 05/21/25 Rx atorvastatin 20 mg tablet 20 mg PO BEDTIME #90 tabs 04/22/25 05/22/25 05/21/25 Rx cholecalciferol (vitamin D3) 50 50 mcg PO DAILY #30 caps 05/09/25 05/23/25 05/23/25 06:00 Rx mcg (2,000 unit) capsule lisinopril 10 mg tablet 10 mg PO DAILY 05/22/25 05/23/25 05/23/25 History Allergies Allergy/AdvReac Type Severity Reaction Status Date / Time Sulfa (Sulfonamide Allergy HIVES Verified 05/22/25 14:22 Antibiotics) nitrofurantoin (From AdvReac SHORTNESS Verified 05/22/25 14:22 Macrobid) OF BREATH Current Medications Generic Name Dose Route Start Last Admin Trade Name Freq PRN Reason Stop Dose Admin Sodium Chloride 1,000 mls @ 30 mls/hr 05/23/25 08:00 05/23/25 08:14 Sodium Chloride 0.9% IV 05/24/25 07:59 30 mls/hr .Q24H LEO Administration PFSH Anesthesia Medical History (Updated 05/23/25 @ 09:33 by Mague Walters MD) History of CVA (cerebrovascular accident) Left Frontoparietal - 12/2019 - Affected memory and math Psychiatric care Anxiety 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) History of hiatal hernia History of DVT (deep vein thrombosis) Hypertension History of diverticulitis History of TIA (transient ischemic attack) Surgical History 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 Hx of hysterectomy 03/2017 - No cancer History of delivery 1994 History of hysteroscopy Family History Father Glaucoma Sister Morquio syndrome Connective tissue disease without genetic confirmation Brother CAD (coronary artery disease), Onset Age: 48 at age 48 with heart issues/electrolyte issues Unknown Cancer colon cancer Social History Smoking and tobacco/nicotine status: never used tobacco/nicotine Quit status (tobacco/nicotine): has quit using Year quit tobacco: 03/2021 Alcohol intake: never Substance/Drug Use: never Data Anesthesia Cardiac Studies: Echocardiogram 07/22/23 Echocardiogram Ultrasound 12/17/19 Transesophageal Echocardiogram 07/24/20 Holter Monitor 07/08/20
[2025-05-23] MEDS: ceFAZolin 2,000 mg SDV 2000 MG IVP (10:18)
[2025-05-23] MEDS: ceFAZolin 1,000 mg SDV 1000 MG IRRIGATION (11:49)
--- NOTE | 2025-05-23 14:07 | P.OP_ITS ---
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 Radial nerve palsy to motor function, sensory appears intact present in the recovery room. Procedure done: Left midshaft humerus fracture, long oblique, takedown of nonunion and open reduction internal fixation Implants: [employer] 11 hole 4.0 compression plate with combination of locking and nonlocking screws Specimens removed/disposition: Cultures obtained from nonunion bursa Pathology: None sent. Surgeon: Mague Walters MD Electric System Operator: Samantha Reyes, nurse practitioner, who services were required for retraction, maintenance of fracture reduction, protection of vessels and nerves in the operative area, and closure. 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 Each fracture and, proximal and distal, was buried into soft tissue, muscle, and surrounding bursal tissue. Condition: stable Disposition: PACU (Then return to same-day surgery for discharge to home) Brief History: This 64-year-old woman presented to the office with a humerus fracture with date of injury June 16, 2024. Initially, the patient had fractures of the midshaft of the humerus which was a long oblique, but options were complicated by the fact that the patient also had a surgical neck and comminuted humeral head fracture. Because of this, we elected not to proceed with surgical intervention. The patient was initially treated for her humerus fracture with a clamshell style brace and subsequently a bone stimulator. Recent bone scan demonstrated that the humeral head and surgical neck fractures had healed, but she had obvious nonunion with significant fracture motion at the fracture site of the humerus. After discussion in the office, plans were made for operative intervention in the form of takedown of nonunion and open reduction internal fixation of humeral shaft. Procedure: The patient was brought to the operating theater general anesthesia, intubated, ASA 3. Prior to the surgical procedure, discussion was undertaken regarding the possibility of a regional block for pain management following surgery, but to allow assessment of nerve function, we elected to hold on the supraclavicular block until after the surgery. The patient was placed in a sloppy lateral position. Subsequently, the left upper extremity was prepped and draped in usual fashion utilizing DuraPrep. The arm was draped free. A surgical pause was performed prior to commencement of the surgical procedure. At the time of the surgical pause, we confirmed site and side of surgery as well as administration of appropriate perioperative antibiotics, Ancef 2 g. After prepping and draping and identification of papules in the axilla, the patient was also administered vancomycin 1 g. Fluoroscopy was utilized during the surgical procedure but also at the beginning to identify the location of the fracture on the patient's upper extremity. Following the surgical pause, an incision was made in the posterior lateral area of the patient's upper extremity. It actually, secondary to the patient's anatomy and papules that were present was more lateral than it was posterior. The patient had significant soft tissue, and this was incised using a scalpel and subsequently hemostasis was obtained. The anterior and posterior heads of the triceps were identified, and these were split to allow access to the posterior aspect of the humerus. At that point, the fracture fragments were palpable, and essentially, the incision through the medial head of the triceps was a splitting incision over these fracture fragments. Proximal fragment was initially identified. Upon entry into the area, there was noted to be bursal fluid which was cultured. We were able to dissected around the proximal fragment with some difficulty. Throughout the surgical procedure care was taken to avoid neurovascular structures. Distally, the radial nerve was identified and was protected, but it did have to be retracted out of the way. Once the proximal fragment had been isolated and the nonunion aspect of the medullary canal was cleared of fibrous tissue, attention was directed distally. The distal fragment was impacted into the anterior muscular tissues. It was quite difficult to extract this from the soft tissues. Once again, once it was extracted, the fibrous tissue overlying the intramedullary canal in the area of the nonunion was removed with a combination of a rongeur and curette. When it was felt that the fracture fragments had been appropriately freshened for possible union, attention was directed to attempted reduction at the fracture site. Clamps were used with soft tissue retraction to reduce the fracture. Care was taken to assure the clamps were passed along the bone to avoid injury to nerves in the area. Fracture was manipulated and we were able to get the majority of the length back. We did remove some nonviable bone from the distal aspect of the proximal fragment. We then held the fracture with clamps and an x-ray was obtained. Fluoroscopy demonstrated the fracture appeared to be out to length and was in good position. At that point, we had to manipulate the clamps to be able to place the 11 hole plate underneath of them and place it in appropriate position to get enough fixation proximal and distal to the fracture site. The plate was then held in position with these clamps. Standard AO technique was utilized to attach the plate to the bone. This was an 11 hole 4.0 compression plate by [employer] with a combination of locking and nonlocking screws. During this procedure, the radial nerve was visualized distally crossing around the humerus. It was intact, but it did have to be retracted out of the way. Following placement of the plate, once again fluoroscopy was utilized to assess the plate position and appropriate reduction. DBM putty, 5 cc, with cancellous bone was then impacted around the nonunion site. Prior to this, the wound was copiously irrigated. Following this the deep adipose tissues were closed, but due to the neurologic structures, the plane of the triceps was not sutured. After deep 0 Vicryl were placed, the wound was closed with 3-0 Monocryl in an interrupted fashion in the subcu tenia's tissues and the subcuticular tissues were closed with a 3 oh STRATAFIX. This was followed by Dermabond pernio, followed by a trice 7 wound VAC style itself containing dressing. The patient was then placed in her original clamshell brace. She was returned to the recovery room in a satisfactory condition. While in the recovery room, the patient's neurologic function was evaluated. The patient had intact hand intrinsics and complete sensation around the hand was intact. She was not able, however, to straighten her thumb or raise her wrist. This was felt to be secondary to traction injury along the radial nerve. The patient therefore was placed in a cock up wrist splint. Following this, she did have a supraclavicular block placed by anesthesia. Patient was also given a sling and was returned to recovery room for discharge to home she will follow-up with us in the office as scheduled. Related Problem List Diagnoses 1. Closed displaced comminuted fracture of shaft of left humerus with routine healing, subsequent encounter: 2. Closed fracture of head of left humerus with routine healing, subsequent encounter:
--- NOTE | 2025-05-23 14:12 | XR_ITS ---
WS: [id number] [place] [id number] REASON FOR EXAM: ORIF LT HUMERUS FINDINGS: Plate and screw fixation of comminuted midshaft fracture of the left humerus. Surgical appliances are intact and in proper position and alignment unchanged compared to the intraoperative examination of 05/23/2025 1:14 p.m. Fracture fragments are in good apposition and alignment unchanged compared to the previous examination. XR/[place] [id number] IMPRESSION: Midshaft humeral fracture with internal fixation as above.
--- NOTE | 2025-05-23 14:20 | ANES.PROC ---
Anesthesia Procedures Procedure/Date: 05/23/25 Nerve Block ^: Nerve Block 1: Main Anesthesia: general anesthesia Time Out Performed: Yes Consent: requested by attending/covering physician, from patient, from other, risks and benefits reviewed and patient agrees to proceed Laterality: Left Nerve block location: supraclavicular (L) Anesthesia monitors applied: pulse oximetry, EKG, BP cuff and oxygen Nerve block position: semi sitting Anesthetic Used: ropivicaine 0.5% (25 ml) and with decadron (4 mg) Ultrasound used to: recognize landmarks, visualize and ID brachial plexus, in supraclavicular region and visualize and ID interscalene groove Interscalene/Femoral BLK: 2 stimuplex 22 g needle used for position and inplane approach, visualize local anesthetic spread and no vascular puncture identified Injection: neg aspiration of heme Patient Tolerated Procedure: well Complications: none Additional Comments: Diagnosis: Post-op pain Performed by Mat Tay SRNA
== END | disposition home or self-care (01) ==
PROVIDERS: PCP Family Medicine; Visit Provider Specialist
PROC: (CPT 24515; principal; 2025-05-23 10:15)
DX: S42.352K Displaced comminuted fracture of shaft of humerus, left arm, subsequent encounter for fracture with nonunion (principal); X58.XXXD Exposure to other specified factors, subsequent encounter; S42.221 2-part displaced fracture of surgical neck of right humerus; X58.XXXS Exposure to other specified factors, sequela; I10 Essential (primary) hypertension; Z86.73 Personal history of transient ischemic attack (TIA), and cerebral infarction without residual deficits; R56.9 Unspecified convulsions; Z79.82 Long term (current) use of aspirin; K21.9 Gastro-esophageal reflux disease without esophagitis; F41.9 Anxiety disorder, unspecified
CPT/HCPCS: 24515; 73060; 76000; 87070; 87075; 87205; C1713; J0131; J0690; J1100; J1171; J2405; J2704; J2710; J3010; J3373; J3490; J7030; J9999

== ENCOUNTER → 2025-06-03 10:13 | Outpatient (BNVA) | payer MEDICARE, SELFPAY | PROVIDERS: PCP Family Medicine; Visit Provider Specialist | DX: Z98.890 Other specified postprocedural states (principal) | CPT/HCPCS: 73060; 99024 ==

== ENCOUNTER → 2025-06-24 10:21 | Outpatient (BNVA) | payer MEDICARE, SELFPAY | PROVIDERS: PCP Family Medicine; Visit Provider Specialist | DX: Z98.890 Other specified postprocedural states (principal) | CPT/HCPCS: 73060; 99024 ==

== ENCOUNTER → 2025-07-08 10:28 | Outpatient (BNVA) | payer MEDICARE, SELFPAY | PROVIDERS: PCP Family Medicine; Visit Provider Specialist | DX: Z98.890 Other specified postprocedural states (principal) | CPT/HCPCS: 73060; 99024 ==

== ENCOUNTER → 2025-07-22 10:56 | Outpatient (BNVA) | payer MEDICARE, SELFPAY | PROVIDERS: PCP Family Medicine; Visit Provider Specialist | DX: Z98.890 Other specified postprocedural states (principal) | CPT/HCPCS: 73060; 99024 ==